=== PATIENT | female | born 1935 | race Caucasian/White ===

== ENCOUNTER 2017-11-20 17:00 | Emergency (ER) | payer OTHER ==
[2017-11-20 17:53] LABS: Absolute Lymphocytes (CBC) 2.3 K/uL (0.7-4.9); Absolute Monocytes 0.4 K/uL (0.1-1.3); Absolute Neutrophil 3.8 K/uL (1.8-8.0); Eosinophils % 2.6 % (0-4.4); Hematocrit 32.7 % (36.0-45.0); Lymphocytes % 34.1 % (15.3-44.8); MCH 35.8 pg (27.0-35.0); MCV 102.9 fL (80-100); RBC Red Blood Cell Count 3.17 M/uL (3.86-4.86)
[2017-11-20 17:58] LABS: Potassium 3.4 mEq/L (3.6-5.0)
--- NOTE | 2017-11-20 18:08 | RAD REPORT ---
EXAM DESCRIPTION: CT - Head C Spine Joe Crowley - 11/20/2017 5:44 pm CLINICAL HISTORY: Head and neck injury with chest and abdominal pain status post fall.. Head and nec k pain . TECHNIQUE: Computed axial tomography of the head and cervical spine was obtained Computed axial tomography of the chest, abdomen and pelvis was obtained. 100 cc Isovue-300 was given intravenously coronal and sagittal reconstruction was performed. All CT scans are performed using dose optimization technique as appropriate and may include automated exposure control or mA/KV adjustment according to patient size. COMPARISON: CT abdomen 2012 FINDINGS: An intracranial bleed is not seen. The ventricles are normal in caliber. An extra-axial fl uid collection is not noted. Moderate low-density areas are present in periventricular, deep and subc ortical white matter bilaterally probably secondary to ischemic changes secondary to small vessel dis ease A cervical fracture is not seen. No dislocation is seen. A mediastinal hematoma is not noted. A pleural effusion is not present. A lung contusion is not seen. The liver, spleen, pancreas, adrenals, kidneys and bladder demonstrate no significant abnormality. A left renal cyst is seen. A small hiatal hernia is present IMPRESSION: 1. No acute intracranial abnormality is seen 2. A cervical fracture is not visualized. If the patient continues have symptoms to suggest intracran ial/spinal cord pathology then MRI would be recommended. 3. No traumatic injury involving the chest, abdomen or pelvis is seen.
--- NOTE | 2017-11-20 18:14 | RAD REPORT ---
EXAM DESCRIPTION: CT - Facial Bones W/ Mpr - 11/20/2017 5:44 pm CLINICAL HISTORY: Facial injury status post fall. Facial pain COMPARISON: none TECHNIQUE: Computed axial tomography of the face was obtained. Coronal and sagittal reconstruction w as performed. All CT scans are performed using dose optimization technique as appropriate and may include automated exposure control or mA/KV adjustment according to patient size. FINDINGS: A fracture is not seen. The nasal septum is deviated. A TMJ dislocation is not noted. The globes are intact. Fluid within the sinuses is not seen. IMPRESSION: Negative for a facial fracture.
--- NOTE | 2017-11-20 18:44 | RAD REPORT ---
EXAM DESCRIPTION: RAD - Hand Right 3 View - 11/20/2017 6:27 pm CLINICAL HISTORY: Right hand pain status post injury FINDINGS: No fracture or dislocation is seen. The bones are osteoporotic
--- NOTE | 2017-11-20 18:46 | RAD REPORT ---
EXAM DESCRIPTION: RAD -Hand Left 3 View - 11/20/2017 6:29 pm CLINICAL HISTORY: Left hand pain status post injury FINDINGS: No fracture or dislocation is seen. The bones are osteoporotic. Narrowing involves the second DIP joint with osteophytes at erosions.
[2017-11-20] MEDS ORDERED: ONDANSETRON 4 MG/2 ML VIAL ONE (18:49)
[2017-11-20] MEDS ORDERED: MORPHINE 4 MG/ML SYR ONE (18:49)
--- NOTE | 2017-11-20 19:07 | ER ---
Nurse's Notes [facility] Name: Nanette Quiros Age: 82 yrs Sex: Female : 1935 Arrival Date: 11/20/2017 Time: 17:02 Bed 2 Private MD: Loree Gale Diagnosis: Other slipping, tripping and stumbling and falls;Facial contusion, bilateral shoulder contusions/sprains, bilateral hand contusions, multiple skin tears Presentation: 11/20 17:05 Presenting complaint: EMS states: pt was in back yard tripped and fell on a large 2 flower pot, fell face first, c/o right jaw pain, nose pain, Right shoulder pain with possible location, and left heel, left elbow pain, she says she really just hurts all over, possible chipped tooth, unsure what med she takes but plavix is in her med box. Transition of care: patient was not received from another setting of care. Onset of symptoms was November 20, 2017. Risk Assessment: Do you want to hurt yourself or someone else? Patient reports no desire to harm self or others. Initial Sepsis Screen: Does the patient meet any 2 criteria? No. Patient's initial sepsis screen is negative. Does the patient have a suspected source of infection? No. Patient's initial sepsis screen is negative. Care prior to arrival: sling applied to Right arm. 17:05 Method Of Arrival: EMS: [facility] tw2 17:05 Acuity: BAO 2 tw2 17:09 Mechanism of Injury: Fall from standing position. Trauma event details: Injury occurred tw2 in the [facility]. Trauma Activation: Alert Physician: ED Physician; Name: ; Notified At: ; Arrived At: Physician: General Surgeon; Name: ; Notified At: ; Arrived At: Physician: Radiology; Name: ; Notified At: ; Arrived At: Physician: Respiratory; Name: ; Notified At: ; Arrived At: Physician: Lab; Name: ; Notified At: ; Arrived At: Historical: - Allergies: 17:03 Codeine; tw2 17:03 PENICILLINS; tw2 - PMHx: 17:03 Asthma; COPD; Hyperlipidemia; Hypertension; Myocardial infarction; tw2 - PSHx: 17:03 CABG; tw2 - Immunization history:: Adult Immunizations. - Social history:: Smoking status: Patient/guardian denies using tobacco. - Immunization history: Last tetanus immunization: unknown. - Ebola Screening: : Patient denies travel to an Ebola-affected area in the 21 days before illness onset. Screenin:08 Abuse screen: Denies threats or abuse. Nutritional screening: No deficits noted. tw2 Tuberculosis screening: No symptoms or risk factors identified. Fall Risk None identified. Primary Survey: 17:08 A: Airway: patent, room air. Breathing/Chest: Respiratory pattern: regular, Respiratory tw2 effort: spontaneous, unlabored, Breath sounds: clear, bilaterally. Chest inspection: symmetrical rise and fall of the chest. Circulation: Heart tones present. Skin temperature: warm. Disability Alert. 18:00 Reassessment Airway Airway Patent Breathing/Chest Respiratory pattern Regular tw2 Respiratory effort Spontaneous Unlabored Breath sounds Clear Chest inspection Symmetrical Circulation Heart rhythm Heart tones Present Disability Alert. Secondary Survey: 17:08 HEENT: Head Other swelling and bruising noted to nose, lips, and mouth area Nose: tw2 bleeding noted to bilateral nares. Gastrointestinal: No deficits noted. Abdomen is soft, Bowel sounds present in all quadrants. : No signs and/or symptoms were reported regarding the genitourinary system. Musculoskeletal: Circulation, motion, and sensation intact. Reports pain in right shoulder. Assessment: 17:05 General: Appears in no apparent distress. uncomfortable, Behavior is calm, cooperative, tw2 appropriate for age. Pain: Complains of pain in face and left shoulder. Neuro: Level of Consciousness is awake, alert, obeys commands, Oriented to person, place, situation. Cardiovascular: Denies chest pain, shortness of breath, Heart tones S1 S2 Capillary refill < 3 seconds. Respiratory: Airway is patent Respiratory effort is even, unlabored, Respiratory pattern is regular, symmetrical, Breath sounds are clear bilaterally. GI: No signs and/or symptoms were reported involving the gastrointestinal system. Abdomen is flat, Bowel sounds present X 4 quads. : No signs and/or symptoms were reported regarding the genitourinary system. EENT: swelling noted to nose, and mouth, bruising noted to lips, dried blood in nares, skin tears on bridge of nose and near right nostril. Derm: Skin is intact, is healthy with good turgor, Skin temperature is warm. 17:39 Reassessment: pts sister at bedside states she has "beginning states of alzheimers and tw2 has been being very suspicious lately and stopped taking all her meds last week, her daughter is disable and left her home alone today while i was getting my hair done, her daughter said she just got mad for no reason was yelling at her daughter". 18:37 Reassessment: Patient and/or family updated on plan of care and expected duration. Pain tw2 level reassessed. Patient is alert, oriented x 3, equal unlabored respirations, skin warm/dry/pink. pt c/o pain would like pain medicine, provider notified. 19:19 Reassessment: Patient and/or family updated on plan of care and expected duration. Pain tw2 level reassessed. Patient is alert, oriented x 3, equal unlabored respirations, skin warm/dry/pink. pt refused to ambulate at this times states "i am too woozy from that pain medicine", provider notified. 20:15 Reassessment: Attempted to ambulate patient, "States I often feel dizzy when I walk"; lp1 Patient slow to ambulate, shuffling gait. 21:00 Reassessment: Patient states pain to right forearm, states "it feels like it's burning".lp1 22:15 Reassessment: Dr. Dodge at bedside to re-evaluate patient. lp1 23:00 Reassessment: Patient complaint of pain to right forearm and right shoulder. Pain: Pain lp1 currently is 8 out of 10 on a pain scale. Respiratory: Respiratory effort is even, unlabored. Derm: Skin is pink, warm \\T\\ dry. Bruising that is dark purple, on face. Musculoskeletal: Circulation, motion, and sensation intact. Range of motion: limited in right shoulder. 11/21 00:00 Reassessment: Patient is alert, oriented x 3, equal unlabored respirations, skin lp1 warm/dry/pink. Awaiting results of x-rays. 01:00 Reassessment: Patient appears in no apparent distress at this time. Patient is alert, lp1 oriented x 3, equal unlabored respirations, skin warm/dry/pink. Patient states feeling better. Vital Signs: 11/20 17:03 BP 170 / 71; Pulse 99; Resp 19; Temp 98.8(TE); Pulse Ox 97% on NC; Weight 68.04 kg (R); tw2 Height 5 ft. 5 in. (165.10 cm); Pain 10/10; 18:36 BP 173 / 84; Pulse 89; Resp 17; Pulse Ox 95% on R/A; tw2 19:30 BP 148 / 60; Pulse 87; Resp 18; Pulse Ox 94% on R/A; lp1 20:30 BP 141 / 60; Pulse 86; Resp 18; Pulse Ox 93% on R/A; lp1 21:30 BP 128 / 64; Pulse 89; Resp 18; Pulse Ox 92% on R/A; lp1 22:30 BP 128 / 61; Pulse 89; Resp 18; Pulse Ox 93% on R/A; lp1 23:30 BP 140 / 64; Pulse 91; Resp 18; Pulse Ox 94% on R/A; lp1 11/21 00:30 BP 128 / 54; Pulse 90; Resp 18; Pulse Ox 94% on R/A; lp1 11/20 17:03 Body Mass Index 24.96 (68.04 kg, 165.10 cm) tw2 Gayle Coma Score: 11/20 17:07 Eye Response: spontaneous(4). Verbal Response: oriented(5). Motor Response: obeys tw2 commands(6). Total: 15. Trauma Score (Adult): 17:07 Eye Response: spontaneous(1); Verbal Response: oriented(1); Motor Response: obeys tw2 commands(2); Systolic BP: > 89 mm Hg(4); Respiratory Rate: 10 to 29 per min(4); Gayle Score: 15; Trauma Score: 12 ED Course: 17:02 Patient arrived in ED. tw2 17:05 Bed in low position. Side rails up X2. valve and regulator repairer on. Pulse ox on. NIBP on. Warm tw2 blanket given. 17:07 Charanjit Pillai MD is Attending Physician. kdr 17:07 Triage completed. tw2 17:07 Arm band placed on. tw2 17:21 Inserted saline lock: 20 gauge in left Blood collected. ag 17:22 Aria Ibanez, ADAN is Primary Nurse. tw2 17:40 Patient maintains SpO2 saturation greater than 95% on room air. Thermoregulation: warm tw2 blanket given to patient. 17:44 CT Traumagram (Head C Spine CAP W Con) In Process Unspecified. EDMS 17:44 Facial Bones W/ Mpr In Process Unspecified. EDMS 17:48 Loree Gale MD is Private Physician. sb2 18:23 X-ray completed. Portable x-ray completed in exam room. Patient tolerated procedure ml well. 18:25 Hand Right 3 View XRAY In Process Unspecified. EDMS 18:25 Hand Left 3 View XRAY In Process Unspecified. EDMS 19:03 Loree Gale MD is Referral Physician. kdr 19:10 Report given to ADAN Anguiano. tw2 19:20 No provider procedures requiring assistance completed. tw2 19:36 Primary Nurse role handed off by Aria Ibanez RN tw2 21:48 Annmarie Tyler RN is Primary Nurse. lp1 23:41 X-ray completed. Portable x-ray completed in exam room. Patient tolerated procedure kw well. 23:41 Shoulder Right (2 View) XRAY In Process Unspecified. EDMS 23:41 Forearm Right XRAY In Process Unspecified. EDMS 11/21 01:36 IV discontinued, No redness/swelling at site. Pressure dressing applied. lp1 Administered Medications: 11/20 18:50 Drug: Zofran 4 mg Route: IVP; Site: left antecubital; tw2 19:30 Follow up: Response: No adverse reaction lp1 18:52 Drug: morphine 2 mg Route: IVP; Site: left antecubital; tw2 19:30 Follow up: Response: No adverse reaction; Pain is decreased lp1 23:22 Drug: [place] 5 mg-325 mg 1 tabs Route: PO; lp1 11/21 01:40 Follow up: Response: Pain is decreased lp1 Intake: 11/20 17:07 PO: 0ml; Total: 0ml. tw2 Output: 16:10 Urine: 300ml (Voided); Total: 300ml. tw2 Outcome: 19:06 Discharge ordered by . kdr 19:20 Patient's length of stay in the Emergency Department was greater than 2 hours. pt tw2 population in ERPatient's length of stay extended due to 11/21 01:37 Discharged to home via wheelchair, with family. lp1 Condition: good Discharge instructions given to patient, family, Instructed on discharge instructions, follow up and referral plans. medication usage, Demonstrated understanding of instructions, follow-up care, medications, Prescriptions given X 1. 01:40 Patient left the ED. lp1 Signatures: Dispatcher [employer] EDMS Charanjit Pillai MD MD kdr Lopez, Melissa ml Whitley, Kimberlee kw Pena, Laura, RN RN lp1 Shirin Chauhan Tara, RN RN tw2 Rosemary Solo sb2 Corrections: (The following items were deleted from the chart) 11/20 18:55 18:36 Pulse 89bpm; Resp 17bpm; Pulse Ox 95% RA; tw2 tw2
--- NOTE | 2017-11-20 19:07 | EDPHYS ---
Physician Documentation [facility] Name: Nanette Quiros Age: 82 yrs Sex: Female : 1935 Arrival Date: 11/20/2017 Time: 17:02 Bed 2 Private MD: Loree Gale ED Physician Charanjit Pillai HPI: 11/20 18:04 This 82 yrs old Female presents to ER via EMS with complaints of Fall Injury. kdr 18:04 Onset: The symptoms/episode began/occurred suddenly, just prior to arrival. Associated kdr injuries: The patient sustained injury to the head, contusion, pain. Severity of symptoms: At their worst the symptoms were mild, moderate, in the emergency department the symptoms are unchanged. It is unknown whether or not the patient has had similar symptoms in the past. It is unknown whether or not the patient has recently seen a physician. The patient reportedly tripped falling face forward hitting her face. She now c/o pain to her face, shoulders and hands. She has blood on her face with no obvious source on first exam. Historical: - Allergies: 17:03 Codeine; tw2 17:03 PENICILLINS; tw2 - PMHx: 17:03 Asthma; COPD; Hyperlipidemia; Hypertension; Myocardial infarction; tw2 - PSHx: 17:03 CABG; tw2 - Immunization history:: Adult Immunizations. - Social history:: Smoking status: Patient/guardian denies using tobacco. - Immunization history: Last tetanus immunization: unknown. - Ebola Screening: : Patient denies travel to an Ebola-affected area in the 21 days before illness onset. ROS: 18:04 Constitutional: Negative for fever, chills, and weight loss, Eyes: Negative for injury, kdr pain, redness, and discharge, Neck: Negative for injury, pain, and swelling, Cardiovascular: Negative for chest pain, palpitations, and edema, Respiratory: Negative for shortness of breath, cough, wheezing, and pleuritic chest pain, Abdomen/GI: Negative for abdominal pain, nausea, vomiting, diarrhea, and constipation, Back: Negative for injury and pain, : Negative for injury, bleeding, discharge, and swelling, MS/Extremity: Negative for injury and deformity, Skin: Negative for injury, rash, and discoloration, Psych: Negative for depression, anxiety, suicide ideation, homicidal ideation, and hallucinations, Allergy/Immunology: Negative for hives, rash, and allergies, Endocrine: Negative for neck swelling, polydipsia, polyuria, polyphagia, and marked weight changes, Hematologic/Lymphatic: Negative for swollen nodes, abnormal bleeding, and unusual bruising. 18:04 ENT: Positive for Multiple apparent abrasions to her face. Exam: 18:04 Constitutional: This is a well developed, well nourished patient who is awake, kdr semi-alert, and in mild distress. Head/Face: Normocephalic, atraumatic. Eyes: Pupils equal round and reactive to light, extra-ocular motions intact. Lids and lashes normal. Conjunctiva and sclera are non-icteric and not injected. Cornea within normal limits. Periorbital areas with no swelling, redness, or edema. Neck: Trachea midline, no thyromegaly or masses palpated, and no cervical lymphadenopathy. Supple, full range of motion without nuchal rigidity, or vertebral point tenderness. No Meningismus. Chest/axilla: Normal chest wall appearance and motion. Nontender with no deformity. No lesions are appreciated. Cardiovascular: Regular rate and rhythm with a normal S1 and S2. No gallops, murmurs, or rubs. Normal PMI, no JVD. No pulse deficits. Respiratory: Lungs have equal breath sounds bilaterally, clear to auscultation and percussion. No rales, rhonchi or wheezes noted. No increased work of breathing, no retractions or nasal flaring. Abdomen/GI: Soft, non-tender, with normal bowel sounds. No distension or tympany. No guarding or rebound. No evidence of tenderness throughout. Back: No spinal tenderness. No costovertebral tenderness. Full range of motion. Neuro: Awake and alert, GCS 15, oriented to person, place, time, and situation. Cranial nerves II-XII grossly intact. Motor strength 5/5 in all extremities. Sensory grossly intact. Cerebellar exam normal. Normal gait. Psych: Awake, alert, with orientation to person, place and time. Behavior, mood, and affect are within normal limits. 18:04 Musculoskeletal/extremity: The patient c/o pain in both shoulders and her hands. Vital Signs: 17:03 BP 170 / 71; Pulse 99; Resp 19; Temp 98.8(TE); Pulse Ox 97% on NC; Weight 68.04 kg (R); tw2 Height 5 ft. 5 in. (165.10 cm); Pain 10/10; 18:36 BP 173 / 84; Pulse 89; Resp 17; Pulse Ox 95% on R/A; tw2 19:30 BP 148 / 60; Pulse 87; Resp 18; Pulse Ox 94% on R/A; lp1 20:30 BP 141 / 60; Pulse 86; Resp 18; Pulse Ox 93% on R/A; lp1 21:30 BP 128 / 64; Pulse 89; Resp 18; Pulse Ox 92% on R/A; lp1 22:30 BP 128 / 61; Pulse 89; Resp 18; Pulse Ox 93% on R/A; lp1 23:30 BP 140 / 64; Pulse 91; Resp 18; Pulse Ox 94% on R/A; lp1 11/21 00:30 BP 128 / 54; Pulse 90; Resp 18; Pulse Ox 94% on R/A; lp1 11/20 17:03 Body Mass Index 24.96 (68.04 kg, 165.10 cm) tw2 Gayle Coma Score: 11/20 17:07 Eye Response: spontaneous(4). Verbal Response: oriented(5). Motor Response: obeys tw2 commands(6). Total: 15. Trauma Score (Adult): 17:07 Eye Response: spontaneous(1); Verbal Response: oriented(1); Motor Response: obeys tw2 commands(2); Systolic BP: > 89 mm Hg(4); Respiratory Rate: 10 to 29 per min(4); [place] Score: 15; Trauma Score: 12 MDM: 18:04 Data reviewed: vital signs, nurses notes, lab test result(s), radiologic studies. kdr Counseling: I had a detailed discussion with the patient and/or guardian regarding: the historical points, exam findings, and any diagnostic results supporting the discharge/admit diagnosis, lab results, radiology results. 19:06 Patient medically screened. kdr 11/21 01:00 ED course: pt able to ambulate with asst and has walker and wc at home, additional gs complaints of R forearm and shoulder xrayed and no fracture. pt want to go home. 11/20 17:11 Order name: Basic Metabolic Panel; Complete Time: 18:04 ag 11/20 17:11 Order name: CBC with Diff; Complete Time: 18:45 ag 11/20 17:11 Order name: Type And Screen ag 11/20 18:44 Order name: Antibody Identification EDAL 11/20 19:36 Order name: Antigen type [facility] 11/20 17:29 Order name: CT Traumagram (Head C Spine CAP W Con); Complete Time: 18:45 kdr 11/20 17:33 Order name: Facial Bones W/ Mpr; Complete Time: 18:45 EDMS 11/20 18:08 Order name: Hand Right 3 View XRAY; Complete Time: 18:45 aa5 11/20 18:08 Order name: Hand Left 3 View XRAY aa5 11/20 23:17 Order name: Shoulder Right (2 View) XRAY gs 11/20 23:17 Order name: Forearm Right XRAY 11/20 17:11 Order name: Labs collected and sent; Complete Time: 17:39 ag Administered Medications: 11/20 18:50 Drug: Zofran 4 mg Route: IVP; Site: left antecubital; tw2 19:30 Follow up: Response: No adverse reaction lp1 18:52 Drug: morphine 2 mg Route: IVP; Site: left antecubital; tw2 19:30 Follow up: Response: No adverse reaction; Pain is decreased lp1 23:22 Drug: [place] 5 mg-325 mg 1 tabs Route: PO; lp1 11/21 01:40 Follow up: Response: Pain is decreased lp1 Disposition: 11/20/17 19:06 Discharged to Home. Impression: Other slipping, tripping and stumbling and falls, Facial contusion, bilateral shoulder contusions/sprains, bilateral hand contusions, multiple skin tears. - Condition is Stable. - Discharge Instructions: Hand Contusion, [id number], Chest Wall Pain, Aysy-[id number], Contusion, Cymi-to-Kdhh, Fall Prevention and Home Safety, Sziq-[id number], Facial or Scalp Contusion, Ycsv-xa-[id number]. - Prescriptions for Ibuprofen 600 mg Oral Tablet - take 1 tablet by ORAL route every 6 hours As needed take with food; 15 tablet. - Medication Reconciliation Form, Thank You Letter, Antibiotic Education, Prescription Opioid Use form. - Follow up: Loree Gale MD; When: 1 - 2 days; Reason: If symptoms return, Further diagnostic work-up, Recheck today's complaints, Continuance of care, Re-evaluation by your physician. - Problem is new. - Symptoms have improved. Signatures: Dispatcher [employer] [facility] Charanjit Pillai MD MD kdr Annmarie Tyler RN RN lp1 Chauhan Shirin Aria Mar RN RN tw2 Fahad Dodge MD MD gs Corrections: (The following items were deleted from the chart) 11/20 17:33 17:29 Facial Bones W/ Con \T\ MPR+CT.RAD.BRZ ordered. EDAL EDAL 17:52 17:12 Creatinine for Radiology+C.LAB.BRZ ordered. [facility] EDAL 19:39 17:11 Urine Dipstick-Ancillary ordered. ag lp1 11/21 01:40 11/20 19:06 11/20/2017 19:06 Discharged to Home. Impression: Other slipping, tripping lp1 and stumbling and falls; Facial contusion, bilateral shoulder contusions/sprains, bilateral hand contusions, multiple skin tears. Condition is Stable. Forms are Medication Reconciliation Form, Thank You Letter, Antibiotic Education, Prescription Opioid Use. Follow up: Loree Gale; When: 1 - 2 days; Reason: If symptoms return, Further diagnostic work-up, Recheck today's complaints, Continuance of care, Re-evaluation by your physician. Problem is new. Symptoms have improved. kdr
[2017-11-20] MEDS ORDERED: HYDROCODONE/APAP 5/325 MG TAB ONE (23:20)
[2017-11-21 01:44] VITALS: TEMP 98.8
[2017-11-21 01:51] VITALS: O2SAT 94
[2017-11-21 01:52] VITALS: BP 128/54
--- NOTE | 2017-11-21 08:10 | RAD REPORT ---
EXAM DESCRIPTION: Shoulder Right 2 View - 11/20/2017 11:45 pm CLINICAL HISTORY: Fall, shoulder pain COMPARISON: June 2014 TECHNIQUE: Internal and external rotation views of the right shoulder were obtained. FINDINGS: No dislocation of the humeral head and no fracture confirmed. Spurring is seen along the i nferior margin of the AC joint and there are degenerative changes to the undersurface of the acromion . Small degenerative calcifications are seen along the superolateral humeral head. These are likely d egenerative tendon calcifications. No pathologic bone process. Ribs and lung parenchyma of the upper chest show no acute finding. IMPRESSION: No fracture or dislocation identifiable. 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
--- NOTE | 2017-11-21 08:52 | RAD REPORT ---
EXAM DESCRIPTION: RAD - Forearm Right - 11/20/2017 11:45 pm CLINICAL HISTORY: Arm pain following trauma COMPARISON: None. FINDINGS: No fracture is identified. There is no dislocation or periosteal reaction noted. Mild dege nerative changes involve the carpal bones with more moderate degenerative change involving the trapez ium first metacarpal articulation. Degenerative changes are present near the lateral epicondyles of t he humerus. No foreign body or other soft tissue abnormality. IMPRESSION: Elbow and wrist degenerative changes are present but no fracture or acute finding.
== END 2017-11-21 01:40 | disposition home or self-care (01) ==
LOC: ER 17:00
DX: S43.402A Unspecified sprain of left shoulder joint, initial encounter (principal); S43.401A Unspecified sprain of right shoulder joint, initial encounter; T14.8XXA Other injury of unspecified body region, initial encounter; S40.012A Contusion of left shoulder, initial encounter; S40.011A Contusion of right shoulder, initial encounter; S60.222A Contusion of left hand, initial encounter; S60.221A Contusion of right hand, initial encounter; W01.0XXA Fall on same level from slipping, tripping and stumbling without subsequent striking against object, initial encounter; Y93.01 Activity, walking, marching and hiking; Y92.9 Unspecified place or not applicable; Z88.0 Allergy status to penicillin; Z88.5 Allergy status to narcotic agent; Z95.1 Presence of aortocoronary bypass graft; I10 Essential (primary) hypertension
CPT/HCPCS: 70450; 70486; 71260; 72125; 73030; 73090; 73130 ×2; 74177; 76377; 80048; 85025; 86850; 86870; 86900; 86901; 86902; 96374; 96375; 99285; J2405; Q9967

== ENCOUNTER 2017-11-22 13:10 | Observation (INO) | payer OTHER ==
[2017-11-22] MEDS ORDERED: FENTANYL CITR 100 MCG/2 ML ONE (14:01)
[2017-11-22 14:09] LABS: Absolute Lymphocytes (CBC) 1.7 K/uL (0.7-4.9); Absolute Monocytes 0.4 K/uL (0.1-1.3); Absolute Neutrophil 5.8 K/uL (1.8-8.0); Basophils % 2.3 % (0-1.3); Eosinophils % 2.5 % (0-4.4); Hematocrit 30.9 % (36.0-45.0); Lymphocytes % 20.2 % (15.3-44.8); MCH 34.6 pg (27.0-35.0); MCV 103.4 fL (80-100); MPV 10.3 fL (7.6-11.3); Monocytes % 5.1 % (3.3-12.3); RBC Red Blood Cell Count 2.99 M/uL (3.86-4.86)
[2017-11-22 14:15] LABS: Protime INR 1.08
[2017-11-22 14:17] LABS: Potassium 3.8 mEq/L (3.6-5.0)
--- NOTE | 2017-11-22 14:44 | RAD REPORT ---
EXAM DESCRIPTION: CT - Head C Spine Cap Chance Crowley - 11/22/2017 2:31 pm CLINICAL HISTORY: Trauma, head and neck injury. Chest, abdomen and pelvis pain. COMPARISON: 11/20/2017 TECHNIQUE: CT head without contrast. CT cervical spine without contrast with coronal and sagittal reformatted images. CT chest, abdomen and pelvis with contrast with coronal and sagittal reformatted images of the spine. All CT scans are performed using dose optimization technique as appropriate and may include automated exposure control or mA/KV adjustment according to patient size. FINDINGS: CT HEAD WITHOUT CONTRAST: No intracranial hemorrhage, hydrocephalus or extra-axial fluid collection. Moderate generalized brain atrophy is present with moderate periventricular and deep white matter chronic microvascular ischemi c changes. No areas of brain edema or midline shift. The paranasal sinuses and mastoids are clear. The calvarium is intact. CT CERVICAL SPINE WITHOUT CONTRAST: No fracture or subluxation. Heavy carotid atherosclerosis. The prevertebral soft tissues are normal i n thickness. CT CHEST, ABDOMEN, PELVIS WITH CONTRAST: The lungs are clear.No pneumothorax or pericardial/pleural fluid. No evidence of intra-abdominal visceral injury, free fluid or free air. Gallbladder sludge. Prominent colonic diverticulosis. No concerning pelvic findings. No fractures. IMPRESSION: Negative for acute traumatic findings.
--- NOTE | 2017-11-22 15:02 | RAD REPORT ---
EXAM DESCRIPTION: RAD - Humerus Right - 11/22/2017 2:49 pm CLINICAL HISTORY: Fall, pain COMPARISON: None. FINDINGS: Mild degenerative changes are present involving the right shoulder. No acute fracture or s ubluxation.
--- NOTE | 2017-11-22 15:02 | RAD REPORT ---
EXAM DESCRIPTION: RAD - Forearm Right - 11/22/2017 2:49 pm CLINICAL HISTORY: Trauma, right forearm pain COMPARISON: None. FINDINGS: No acute fracture or subluxation is seen. Degenerative changes are present at the wrist.
[2017-11-22 16:53] LABS: Urine Blood 2+ (NEG); Urine Glucose NEGATIVE (NEG); Urine Protein 1+ (NEG); Urine Specific Gravity <1.005 (1.005-1.030); Urine pH 5.5 (5.0-7.0)
[2017-11-22] MEDS ORDERED: IPRATROPIUM BROM 0.5MG/2.5ML NEB PRN (17:07)
[2017-11-22] MEDS ORDERED: ALBUTEROL 2.5 MG/3 ML NEB SOL NEB PRN (17:07)
[2017-11-22] MEDS ORDERED: ONDANSETRON 4 MG/2 ML VIAL IV PRN (17:07)
--- NOTE | 2017-11-22 17:17 | P.HP ---
Certification for Inpatient Patient admitted to: Observation With expected LOS: <2 Midnights Patient will require the following post-hospital care: None Practitioner: I am a practitioner with admitting privileges, knowledge of patient current condition, hospital course, and medical plan of care. Services: Services provided to patient in accordance with Admission requirements found in Title 42 Section 412.3 of the Code of Federal Regulations Patient History Date of Service: 11/22/17 Primary Care Provider: Dr. Gale; Cardiology-Dr. Wilhelm Reason for admission: Syncope History of Present Illness: 82-year-old female presented emergency room after syncopal episode. Patient reports that she had been seen on 11/20/2017 in the ER for fall. She was worked up and sent home. Today she was sitting outside. She was in the process of going inside when she kailey from her chair she suddenly had a syncopal episode. She fell backwards. She was out for several seconds. She reported some dizziness. She denied any headaches, chest pain, shortness of breath. She did report some right shoulder pain. Patient with history of hypertension, CAD with previous CABG, COPD, GERD. In the ER she was evaluated. Blood pressure stable. On lab white count 8.3, hemoglobin 10.3. INR 1.08. Sodium 139, potassium 3.8, BUN of 13, creatinine 0.9, GFR 54. Glucose 132. Urinalysis indicated a UTI. CT of the head, neck, chest, abdomen showed no acute abnormality. Chronic Microvascular changes were noted on the CT of the head. A right forearm x-ray showed no fracture. Right humerus showed no fracture but mild degenerate changes were noted. Due to nature of her symptoms the patient was admitted for observation. When I saw the patient the ER, she did not appear in any distress. She had ecchymoses to her face. This was from her prior fall. Allergies codeine [Codeine] Allergy (Verified 02/27/14 22:10) Itching Penicillins Allergy (Verified 02/27/14 22:10) Hives Home medications list reviewed: Yes Home Medications: Aspirin Enteric Coated [ASPIRIN 81 MG EC*] 81 mg PO DAILY 11/05/12 Isosorbide [place] [Imdur*] 30 mg PO DAILY 11/05/12 Loratadine [Claritin*] 10 mg PO PRN PRN 05/09/13 Metoprolol Tartrate [Lopressor*] 25 mg PO BID 11/05/12 Omeprazole [Prilosec] 20 mg PO DAILY 11/05/12 Albuterol Sulfate [Proair Hfa] 2 inh IH TID 02/27/14 Niacin [Niacin ER] 500 mg PO DAILY 02/27/14 Welchol/ 3.75 gm PO BEDTIME 02/27/14 - Past Medical/Surgical History Diabetic: No -: COPD -: CAD, previous CABG -: Hypertension -: Cataracts -: Former tobacco use -: GERD -: Recent fall -: Appendectomy -: Bilateral Cataracts -: Tubal Ligation -: Triple Bypass -: Neuroma removed julisa feet -: Skin cancer removed from face -: Hysterectomy Psychosocial/ Personal History: Patient lives with her daughter. She has 6 children. - Family History Family History: Reviewed- Non-Contributory - Social History Smoking Status: Former smoker Alcohol use: No CD- Drugs: No Caffeine use: Yes Place of Residence: Home Review of Systems General: Weakness, As per HPI Eyes: Unremarkable ENT: Unremarkable Respiratory: As per HPI Cardiovascular: Light Headedness, As per HPI Gastrointestinal: Unremarkable Genitourinary: Unremarkable Musculoskeletal: Shoulder Pain, As per HPI Integumentary: Bruising, As per HPI Neurological: As per HPI Lymphatics: Unremarkable Physical Examination - Physical Exam General: Alert, In no apparent distress, Oriented x3, Cooperative HEENT: Normocephalic, PERRLA, Mucous membr. moist/pink, Other (Ecchymoses to her face in multiple areas) Neck: Supple, No Thyromegaly Respiratory: Clear to auscultation bilaterally, Normal air movement Cardiovascular: Normal pulses, Regular rate/rhythm Gastrointestinal: Normal bowel sounds, Soft and benign, Non-distended, No tenderness, No masses, No rebound, No guarding Musculoskeletal: No erythema, No tenderness, No warmth Integumentary: No erythema, No warmth, No cyanosis, Tenderness/swelling (Pain to the right shoulder noted with palpation. She had some range of motion issues especially with full extension), Other (Ecchymoses as stated above.) Neurological: Normal speech, Normal strength at 5/5 x4 extr, Normal tone, Normal affect - Studies Laboratory Data (last 24 hrs) 11/22/17 13:45: PT 12.7 H, INR 1.08 11/22/17 13:45: Creatinine 0.95 11/22/17 13:45: WBC 8.3 D, Hgb 10.3 L, Hct 30.9 L, Plt Count 174 11/22/17 13:45: Sodium 139, Potassium 3.8, BUN 13, Creatinine 0.99, Glucose 132 H Assessment and Plan - Problems (Diagnosis) (1) Syncope Current Visit: Yes Status: Acute Plan: Syncopal episode likely related to multifactorial issues including dehydration, UTI and possibly orthostatics changes. Will start IV hydration slowly. Will treat her UTI with Levaquin. Urine culture pending. Will monitor her blood pressures closely. Will check orthostatics in the morning. Will physical therapy assess ambulation tomorrow. Cardiology has been consulted await further recommendations. Anticipate possible discharge tomorrow if much improved. Patient may require home health and physical therapy at discharge. Qualifiers: Syncope type: unspecified Qualified Code(s): R55 - Syncope and collapse (2) UTI (urinary tract infection) Current Visit: Yes Status: Acute Plan: Will start Levaquin. Urine culture obtained. Qualifiers: Urinary tract infection type: site unspecified Hematuria presence: without hematuria Qualified Code(s): N39.0 - Urinary tract infection, site not specified (3) Dehydration Current Visit: Yes Status: Acute Plan: Will start IV fluids. Will monitor closely. (4) Right shoulder pain Current Visit: Yes Status: Acute Plan: Patient with right shoulder pain. No fracture noted. Degenerative changes noted. Will physical therapy assess further. Patient may need orthopedic consultation as an outpatient. Qualifiers: Chronicity: acute Qualified Code(s): M25.511 - Pain in right shoulder (5) CAD (coronary artery disease) Current Visit: Yes Status: Chronic Plan: Continue with her medications. Will monitor cardiac enzymes. Cardiology consulted. Qualifiers: Coronary Disease-Associated Artery/Lesion type: unspecified vessel or lesion type [place] vs. transplanted heart: unspecified whether [place] or transplanted heart Associated angina: angina presence unspecified Qualified Code(s): I25.10 - Atherosclerotic heart disease of [place] coronary artery without angina pectoris (6) HTN (hypertension) Current Visit: Yes Status: Chronic Plan: Will review and restart home medication. Will hold blood pressure medication if systolic less than 120. Qualifiers: Hypertension type: essential hypertension Qualified Code(s): I10 - Essential (primary) hypertension (7) Hyperlipidemia Current Visit: Yes Status: Chronic Plan: Will check fasting lipid panel. Will restart home medication once reviewed. Qualifiers: Hyperlipidemia type: unspecified Qualified Code(s): E78.5 - Hyperlipidemia , unspecified (8) COPD (chronic obstructive pulmonary disease) Current Visit: Yes Status: Chronic Plan: Provide medication. Qualifiers: COPD type: chronic bronchitis Chronic bronchitis type: unspecified Qualified Code(s): J42 - Unspecified chronic bronchitis (9) Anemia Current Visit: Yes Status: Chronic Plan: This is likely chronic. Will check iron and B12 studies Qualifiers: Anemia type: unspecified type Qualified Code(s): D64.9 - Anemia, unspecified Discharge Plan: Home Plan to discharge in: 24 Hours - Advance Directives Does patient have a Living Will: No Does patient have a Durable POA for Healthcare: No - Code Status/Comfort Care Code Status Assessed: No (This was not addressed.) Time Spent Managing Pts Care (In Minutes): 55
[2017-11-22] MEDS ORDERED: ENOXAPARIN 40 MG/0.4 ML SQ SCH (18:00)
[2017-11-22] MEDS ORDERED: Levofloxacin500mg IV 500 MG/100 ML BAG IV SCH (18:00)
--- NOTE | 2017-11-22 18:45 | ER ---
Nurse's Notes [facility] Name: Nanette Quiros Age: 82 yrs Sex: Female : 1935 Arrival Date: 11/22/2017 Time: 13:16 Bed 13 Private MD: Loree Gale Diagnosis: Syncope;Acute cystitis without hematuria Presentation: 11/22 13:31 Presenting complaint: Patient states: Fell backwards out of chair, EMS stated after mb3 talking with bystanders pt had syncopal episode and fell. LOC was aprox 1 min. Transition of care: patient was not received from another setting of care. Onset of symptoms was November 22, 2017 at 12:30. Risk Assessment: Do you want to hurt yourself or someone else? Patient reports no desire to harm self or others. Initial Sepsis Screen: Does the patient meet any 2 criteria? No. Patient's initial sepsis screen is negative. Does the patient have a suspected source of infection? No. Patient's initial sepsis screen is negative. Care prior to arrival: Cervical collar in place. Placed on backboard. Medication(s) given: zofran 4 mg, IV initiated. 20 GA, in the left antecubital area, Glucose check: 128. 13:31 Method Of Arrival: EMS: [facility] mb3 13:31 Acuity: BAO 3 mb3 Triage Assessment: 13:38 General: Appears uncomfortable, well groomed, Behavior is calm, cooperative, mb3 appropriate for age. Pain: Complains of pain in dorsal aspect of right forearm, left scapular area and right scapular area. EENT: No signs and/or symptoms were reported regarding the EENT system. 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 Cardiovascular: No deficits noted. Heart tones present Capillary refill < 3 seconds Patient's skin is warm and dry. Pulses are palpable in right radial artery, right dorsalis pedis artery, left radial artery and left dorsalis pedis artery. Respiratory: Airway is patent Respiratory effort is even, unlabored, Respiratory pattern is regular, symmetrical, Breath sounds are clear bilaterally. GI: No signs and/or symptoms were reported involving the gastrointestinal system. Abdomen is flat, Bowel sounds present X 4 quads. : No signs and/or symptoms were reported regarding the genitourinary system. Derm: Bruising that is dark purple, on chin, right jaw and left jaw. Historical: - Allergies: 13:34 Codeine; mb3 13:34 PENICILLINS; mb3 - PMHx: 13:34 Asthma; COPD; Hyperlipidemia; Hypertension; Myocardial infarction; mb3 - PSHx: 13:34 Heart stents; CABG; mb3 - Immunization history:: Adult Immunizations up to date. - Social history:: Smoking status: Patient/guardian denies using tobacco, but has a distant history of tobacco abuse. - Ebola Screening: : Patient denies travel to an Ebola-affected area in the 21 days before illness onset No symptoms or risks identified at this time. Screenin:41 Abuse screen: Denies threats or abuse. Nutritional screening: No deficits noted. mb3 Tuberculosis screening: No symptoms or risk factors identified. Fall Risk Fall in past 12 months (25 points). Secondary diagnosis (15 points) Alzheimer's, IV access (20 points). Ambulatory Aid- None/Bed Rest/Nurse Assist (0 pts). Gait- Normal/Bed Rest/Wheelchair (0 pts) Mental Status- Oriented to own ability (0 pts). Total [place]ado Fall Scale indicates High Risk Score (45 or more points). Fall prevention measures have been instituted. Side Rails Up X 2 Placed Close to Nursing Station 1:1 Attendant Assigned Family Present and informed to notify staff if the need to leave the bedside. Assessment: 13:20 Reassessment: see triage assessment. mb3 15:20 Reassessment: No changes from previously documented assessment. Patient and/or family mb3 updated on plan of care and expected duration. Pain level reassessed. Patient is alert, oriented x 3, equal unlabored respirations, skin warm/dry/pink. 18:38 Reassessment: No changes from previously documented assessment. Patient and/or family mb3 updated on plan of care and expected duration. Pain level reassessed. Patient is alert, oriented x 3, equal unlabored respirations, skin warm/dry/pink. Vital Signs: 13:34 BP 118 / 56; Pulse 89; Resp 17; Temp 97.7(O); Pulse Ox 91% on R/A; Weight 68.04 kg (R); mb3 Height 5 ft. 5 in. (165.10 cm); Pain 6/10; 14:45 BP 133 / 51; Pulse 86; Resp 18; Pulse Ox 93% on R/A; mb3 15:39 BP 150 / 90; Pulse 85; Resp 17; Pulse Ox 94% on R/A; mh5 16:22 BP 133 / 84; Pulse 103; Resp 18; Pulse Ox 96% on R/A; mh5 18:36 BP 132 / 53; Pulse 85; Resp 18; Pulse Ox 94% on R/A; mb3 20:06 BP 115 / 53; Pulse 81; Resp 18; Pulse Ox 97% on R/A; mb3 13:34 Body Mass Index 24.96 (68.04 kg, 165.10 cm) mb3 ED Course: 13:16 Patient arrived in ED. iw 13:16 Tin Goldstein MD is Attending Physician. ps1 13:31 Nnamdi Alanis, ADAN is Primary Nurse. mb3 13:33 Triage completed. mb3 13:42 Patient has correct armband on for positive identification. 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 Pulse mb3 ox on. NIBP on. Head of bed. Cleaned of incontinence. 14:22 Initial lab(s) drawn, by me, sent to lab. Maintain EMS IV. Dressing intact. mh5 14:31 CT Traumagram (Head C Spine CAP W Con) In Process Unspecified. EDMS 14:31 CT completed. Patient tolerated procedure well. Patient moved back from CT. Patient cw1 moved to radiology via stretcher. 14:48 X-ray completed. Portable x-ray completed in exam room. Patient tolerated procedure la2 well. 14:49 Humerus Right XRAY In Process Unspecified. EDMS 14:49 Forearm Right XRAY In Process Unspecified. EDMS 15:50 Urine collected: clean catch specimen, cloudy. mh5 17:24 Loree Gale MD is Private Physician. sb2 18:38 Head of bed elevated. Turned to left side. mb3 18:44 Bryan Junior DO is Hospitalizing Provider. ps1 20:07 Arm band placed on right wrist. mb3 20:08 No provider procedures requiring assistance completed. Patient admitted, IV remains in mb3 place. Administered Medications: 14:04 Drug: fentaNYL (PF) 50 mcg Route: IVP; Site: left antecubital; mb3 20:09 Follow up: Response: No adverse reaction mb3 Outcome: 18:44 Decision to Hospitalize by Provider. ps1 20:08 Admitted to Tele accompanied by tech, via stretcher, room 407, with chart, Report mb3 called to Malena ARELLANO 20:08 Condition: stable 20:08 Instructed on the need for admit. 20:11 Patient left the ED. mb3 Signatures: Dispatcher [employer] Hazel Hernandez RN RN iw Yolanda Navarro cw1 Janina Serra 5 Lenore Smith ky2 Tin Goldstein MD MD ps1 Rosemary Solo2 Nnamdi Alanis RN RN mb3 Corrections: (The following items were deleted from the chart) 15:20 15:19 Reassessment: see triage assessment mb3 mb3
--- NOTE | 2017-11-22 18:45 | EDPHYS ---
Physician Documentation [facility] Name: Nanette Quiros Age: 82 yrs Sex: Female : 1935 Arrival Date: 11/22/2017 Time: 13:16 Bed 13 Private MD: Loree Gale ED Physician Tin Goldstein HPI: 11/22 15:37 This 82 yrs old Female presents to ER via EMS with complaints of Fall Injury. ps1 15:37 patient was at pool and fell out of wheelchair and had syncopal event in which she is ps1 complaining of right arm pain. She had a recent fall a couple of days ago and was seen and evaluated for the same with CT imaging. She has a large contusion to the head and is reportedly on blood thinners, although she does not know which one. Pain rated as moderate. . Historical: - Allergies: 13:34 Codeine; mb3 13:34 PENICILLINS; mb3 - PMHx: 13:34 Asthma; COPD; Hyperlipidemia; Hypertension; Myocardial infarction; mb3 - PSHx: 13:34 Heart stents; CABG; mb3 - Immunization history:: Adult Immunizations up to date. - Social history:: Smoking status: Patient/guardian denies using tobacco, but has a distant history of tobacco abuse. - Ebola Screening: : Patient denies travel to an Ebola-affected area in the 21 days before illness onset No symptoms or risks identified at this time. ROS: 15:37 Constitutional: Negative for fever, chills, and weight loss, Eyes: Negative for injury, ps1 pain, redness, and discharge. 15:37 Cardiovascular: Negative for chest pain, palpitations, and edema, Respiratory: Negative for shortness of breath, cough, wheezing, and pleuritic chest pain, Abdomen/GI: Negative for abdominal pain, nausea, vomiting, diarrhea, and constipation. 15:37 Neuro: Negative for headache, weakness, numbness, tingling, and seizure. 15:37 ENT: Positive for injury or acute deformity. 15:37 MS/extremity: Positive for pain. Exam: 15:37 Constitutional: This is a well developed, well nourished patient who is awake, alert, ps1 and in no acute distress. 15:37 Eyes: Pupils equal round and reactive to light, extra-ocular motions intact. Lids and lashes normal. Conjunctiva and sclera are non-icteric and not injected. ENT: Nares patent. No nasal discharge, no septal abnormalities noted. Tympanic membranes are normal and external auditory canals are clear. Oropharynx with no redness, swelling, or masses, exudates, or evidence of obstruction, uvula midline. Mucous membranes moist. Neck: Trachea midline, no thyromegaly or masses palpated, and no cervical lymphadenopathy. Supple, full range of motion without nuchal rigidity, or vertebral point tenderness. No Meningismus. Chest/axilla: Normal chest wall appearance and motion. Nontender with no deformity. No lesions are appreciated. Cardiovascular: Regular rate and rhythm. No gallops, murmurs, or rubs. Normal PMI, no JVD. No pulse deficits. Respiratory: Lungs have equal breath sounds bilaterally, clear to auscultation and percussion. No rales, rhonchi or wheezes noted. No increased work of breathing, no retractions or nasal flaring. Abdomen/GI: Soft, non-tender, with normal bowel sounds. No distension or tympany. No guarding or rebound. No evidence of tenderness throughout. 15:37 Head/face: Noted is contusion, ecchymosis. 15:37 Musculoskeletal/extremity: Extremities: grossly normal except: noted in the right arm: pain, There is no evidence of numbness, tingling. NV intact. . Vital Signs: 13:34 BP 118 / 56; Pulse 89; Resp 17; Temp 97.7(O); Pulse Ox 91% on R/A; Weight 68.04 kg (R); mb3 Height 5 ft. 5 in. (165.10 cm); Pain 6/10; 14:45 BP 133 / 51; Pulse 86; Resp 18; Pulse Ox 93% on R/A; mb3 15:39 BP 150 / 90; Pulse 85; Resp 17; Pulse Ox 94% on R/A; mh5 16:22 BP 133 / 84; Pulse 103; Resp 18; Pulse Ox 96% on R/A; mh5 18:36 BP 132 / 53; Pulse 85; Resp 18; Pulse Ox 94% on R/A; mb3 20:06 BP 115 / 53; Pulse 81; Resp 18; Pulse Ox 97% on R/A; mb3 13:34 Body Mass Index 24.96 (68.04 kg, 165.10 cm) mb3 MDM: 13:33 Patient medically screened. ps1 11/22 13:47 Order name: Basic Metabolic Panel; Complete Time: 14:22 ps1 11/22 13:47 Order name: CBC with Diff; Complete Time: 14:22 ps1 11/22 13:47 Order name: Creatinine for Radiology; Complete Time: 14:22 ps1 11/22 13:47 Order name: Type And Screen ps1 11/22 13:47 Order name: PT-INR; Complete Time: 15:28 ps1 11/22 16:49 Order name: Urine Dipstick--Ancillary (enter results); Complete Time: 17:15 bd 11/22 17:15 Order name: Procalcitonin EDDE 11/22 17:15 Order name: Urinalysis [facility] 11/22 17:15 Order name: Basic Metabolic Panel [facility] 11/22 17:15 Order name: Basic Metabolic Panel [facility] 11/22 17:15 Order name: Basic Metabolic Panel [facility] 11/22 17:15 Order name: Basic Metabolic Panel [facility] 11/22 17:15 Order name: CBC with Automated Diff EDDE 11/22 17:15 Order name: CBC with Automated Diff EDDE 11/22 17:15 Order name: CBC with Automated Diff EDDE 11/22 17:15 Order name: CBC with Automated Diff EDDE 11/22 17:15 Order name: CKMB Creatine Kinase MB EDDE 11/22 17:15 Order name: CKMB Creatine Kinase MB EDDE 11/22 17:15 Order name: CKMB Creatine Kinase MB EDDE 11/22 17:15 Order name: Creatine Phosphokinase [facility] 11/22 17:15 Order name: Creatine Phosphokinase EDDE 11/22 17:15 Order name: Creatine Phosphokinase EDDE 11/22 17:15 Order name: Lipid Profile EDDE 11/22 17:15 Order name: Lipid Profile EDDE 11/22 17:15 Order name: Magnesium EDDE 11/22 17:15 Order name: Magnesium EDDE 11/22 17:15 Order name: Magnesium EDDE 11/22 17:15 Order name: Magnesium EDDE 11/22 17:16 Order name: T4 Free EDDE 11/22 17:16 Order name: T4 Free EDDE 11/22 13:47 Order name: CT Traumagram (Head C Spine CAP W Con); Complete Time: 15:28 ps1 11/22 13:47 Order name: Labs collected and sent; Complete Time: 14:05 [facility] 11/22 13:47 Order name: Urine Dipstick-Ancillary (obtain specimen) [facility] 11/22 13:47 Order name: Humerus Right XRAY; Complete Time: 15:28 [facility] 11/22 13:47 Order name: Forearm Right XRAY; Complete Time: 15:28 [facility] 11/22 14:08 Order name: Labs - recollect needed 11/22 17:15 Order name: CONS Physician Consult [facility] 11/22 17:15 Order name: Physical Therapy Consult [facility] 11/22 17:15 Order name: Respiratory Therapy Consult [facility] 11/22 17:15 Order name: Heart Healthy [facility] 11/22 17:16 Order name: Troponin I [facility] 11/22 17:16 Order name: Troponin I [facility] 11/22 17:16 Order name: Troponin I [facility] 11/22 17:16 Order name: Thyroid Stimulating Hormone [facility] 11/22 17:16 Order name: Thyroid Stimulating Hormone [facility] 11/22 17:16 Order name: Patient Safety Orders [facility] 11/22 17:18 Order name: Vitamin B12 Level [facility] 11/22 17:18 Order name: Ferritin [facility] 11/22 17:18 Order name: Iron,Serum [facility] 11/22 17:18 Order name: Transferrin Sat/Iron Binding [facility] 11/22 18:38 Order name: Diet Regular; Complete Time: 18:39 mh5 Administered Medications: 14:04 Drug: fentaNYL (PF) 50 mcg Route: IVP; Site: left antecubital; mb3 20:09 Follow up: Response: No adverse reaction mb3 Disposition: 11/22/17 18:44 Hospitalization ordered by Bryan Junior for Observation. Preliminary diagnosis are Syncope, Acute cystitis without hematuria. - Bed requested for Telemetry/MedSurg (observation). - Status is Observation. mb3 - Condition is Fair. - Problem is new. - Symptoms are unchanged. UTI on Admission? Yes Signatures: Dispatcher [employer] [facility] Valerie Savanna Tin Goldstein MD MD ps1 Nnamdi Alanis, RN RN mb3 Corrections: (The following items were deleted from the chart) 18:45 18:44 Hospitalization Ordered by Bryan Junior DO for Observation. Preliminary bd diagnosis is Syncope; Acute cystitis without hematuria. Bed requested for Telemetry/MedSurg (observation). Status is Observation. Condition is Fair. Problem is new. Symptoms are unchanged. UTI on Admission? Yes. ps1 20:11 18:45 11/22/2017 18:44 Hospitalization Ordered by Bryan Junior DO for Observation. mb3 Preliminary diagnosis is Syncope; Acute cystitis without hematuria. Bed requested for Telemetry/MedSurg (observation). Status is Observation. Condition is Fair. Problem is new. Symptoms are unchanged. UTI on Admission? Yes. bd
[2017-11-22] MEDS: NA CHLORIDE 0.9% 1,000 ML IV SCH (20:40)
[2017-11-22] MEDS: METOPROLOL TAR 25 MG TAB PO SCH (20:42)
[2017-11-22 21:03] VITALS: BMI 24.6
--- NOTE | 2017-11-22 23:09 | CON ---
Date of Consultation: 11/22/2017 The patient admitted on 11/22/2017, to Dr. Sandi coffey. I saw the patient on 11/22/2017. Reason For Consultation: Syncope. History Of Present Illness: Mrs. Quiros is an 82-year-old woman with history of asthma, dyslipidemia , mixed, CAD status post CABG, hypertension, gastroesophageal reflux disease. She came in with synco pal episode not proceeded with any chest pain, nausea, vomiting, or diaphoresis. She denied any PND, orthopnea, pedal edema, or palpitations. By the time I saw her, her workup was negative except for UTI. Her hemoglobin is 10.3. Her creatinine is 0.95. She had a history of CABG in 1982. A cathete rization in 2013, revealed a patent SVG to the RCA, which was only bypass. LAD and circumflex showed minimal coronary artery disease. No obvious stent at least at that point. Past Medical History: As stated above. Allergies: CODEINE AND PENICILLIN. Review of Systems: Negative. Social History: Negative. Family History: Negative. Medications: At home include Welchol, niacin, Prilosec, Lopressor, Imdur, albuterol, and aspirin. Physical Examination: Vital signs: Stable, afebrile sinus rhythm. HEENT: Negative. Neck: Supple. No bruit, JVD, or thyromegaly. Chest: Clear to auscultation and percussion. Cardiac Exam: Revealed a regular rhythm and rate with an S4, gallops, and an aortic sclerosis murmur . No rubs. Abdomen: Benign. Extremities: Revealed no clubbing, cyanosis, or edema. Diagnostic Data: As stated earlier. Impression And Plan: Syncope most likely secondary to orthostatic hypotension. The patient fell. N o evidence of fracture of fractures by x-ray at this point. I think we need to hydrate her. I do no t think she needs an extensive workup, but I would look at my office because I believe she is a patie nt of ours and see when the last time she had an echocardiogram or carotid Doppler or any cardiac wor kup, and I can make arrangements for that as an outpatient. Her other problems including chronic obs tructive pulmonary disease, dyslipidemia, coronary artery disease status post CABG, and gastroesophag eal reflux disease seem to be stable at this point. I will continue her present regimen. A 48-hour Holter may be reasonable to obtain as an outpatient as well. I will discuss the case further with Dr Peter Junior. The patient can go home whenever Dr. Junior is comfortable. GERMANIA/WAYNE Voice ID: [id number] Report ID: [id number]
[2017-11-22] MEDS: TRAMADOL HCL 50 MG TAB PO PRN (23:19)
[2017-11-22 23:39] LABS: CKMB Creatine Kinase MB 1.7 ng/ml (0.3-4.0)
[2017-11-23 00:07] LABS: Urine Appearance CLOUDY; Urine Bilirubin NEGATIVE (NEG); Urine Blood TRACE (NEG); Urine Color YELLOW; Urine Glucose NEGATIVE (NEG); Urine Protein TRACE (NEG); Urine Specific Gravity >=1.030 (1.005-1.030); Urine pH 5.5 (5.0-7.0)
[2017-11-23 00:27] LABS: Urine Microscopic Reflex ORDER UMIC
[2017-11-23 00:32] LABS: Urine Bacteria >50 /HPF (<20)
[2017-11-23 00:33] LABS: Urine Culture Reflex Order REFLEXED; Urine RBC <5 /HPF (NONE SEEN)
[2017-11-23] MEDS: ACETAMINOPHEN 500 MG TAB PO PRN ×2 (05:51→09:30)
[2017-11-23] MEDS: METOPROLOL TAR 25 MG TAB PO SCH (05:51)
[2017-11-23] MEDS ORDERED: PANTOPRAZOLE 40MG TABLET PO SCH (06:30)
[2017-11-23 06:34] LABS: Absolute Lymphocytes (CBC) 2.2 K/uL (0.7-4.9); Absolute Monocytes 0.5 K/uL (0.1-1.3); Absolute Neutrophil 3.1 K/uL (1.8-8.0); Basophils % 1.3 % (0-1.3); Eosinophils % 5.3 % (0-4.4); Hematocrit 26.4 % (36.0-45.0); Lymphocytes % 35.8 % (15.3-44.8); MCH 35.9 pg (27.0-35.0); MCV 103.2 fL (80-100); MPV 10.2 fL (7.6-11.3); RBC Red Blood Cell Count 2.56 M/uL (3.86-4.86)
[2017-11-23 07:46] LABS: CKMB Creatine Kinase MB 1.5 ng/ml (0.3-4.0)
[2017-11-23 08:47] VITALS: O2SAT 90
--- NOTE | 2017-11-23 08:51 | P.DS ---
Admission Date: 11/22/17 Discharge Date: 11/23/17 Primary Care Provider: Dr. Gale; Cardiology-Dr. Wilhelm Disposition: ROUTINE DISCHARGE Discharge Condition: GOOD Reason for Admission: Syncope Consultations: Cardiology-Dr. Degroot Procedures: Right forearm x-ray: No fracture noted Right humerus x-ray: No fracture or dislocation noted. Mild degenerative changes noted. CT scans: COMPARISON: 11/20/2017 TECHNIQUE: CT head without contrast. CT cervical spine without contrast with coronal and sagittal reformatted images. CT chest, abdomen and pelvis with contrast with coronal and sagittal reformatted images of the spine. All CT scans are performed using dose optimization technique as appropriate and may include automated exposure control or mA/KV adjustment according to patient size. FINDINGS: CT HEAD WITHOUT CONTRAST: No intracranial hemorrhage, hydrocephalus or extra-axial fluid collection. Moderate generalized brain atrophy is present with moderate periventricular and deep white matter chronic microvascular ischemic changes. No areas of brain edema or midline shift. The paranasal sinuses and mastoids are clear. The calvarium is intact. CT CERVICAL SPINE WITHOUT CONTRAST: No fracture or subluxation. Heavy carotid atherosclerosis. The prevertebral soft tissues are normal in thickness. CT CHEST, ABDOMEN, PELVIS WITH CONTRAST: The lungs are clear.No pneumothorax or pericardial/pleural fluid. No evidence of intra-abdominal visceral injury, free fluid or free air. Gallbladder sludge. Prominent colonic diverticulosis. No concerning pelvic findings.No fractures. IMPRESSION: Negative for acute traumatic findings. - Problems (1) Syncope Current Visit: Yes Status: Acute Qualifiers: Syncope type: unspecified Qualified Code(s): R55 - Syncope and collapse (2) UTI (urinary tract infection) Current Visit: Yes Status: Acute Qualifiers: Urinary tract infection type: site unspecified Hematuria presence: without hematuria Qualified Code(s): N39.0 - Urinary tract infection, site not specified (3) Dehydration Current Visit: Yes Status: Acute (4) Right shoulder pain Current Visit: Yes Status: Acute Qualifiers: Chronicity: acute Qualified Code(s): M25.511 - Pain in right shoulder (5) CAD (coronary artery disease) Current Visit: Yes Status: Chronic Qualifiers: Coronary Disease-Associated Artery/Lesion type: unspecified vessel or lesion type [place] vs. transplanted heart: unspecified whether [place] or transplanted heart Associated angina: angina presence unspecified Qualified Code(s): I25.10 - Atherosclerotic heart disease of [place] coronary artery without angina pectoris (6) HTN (hypertension) Current Visit: Yes Status: Chronic Qualifiers: Hypertension type: essential hypertension Qualified Code(s): I10 - Essential (primary) hypertension (7) Hyperlipidemia Current Visit: Yes Status: Chronic Qualifiers: Hyperlipidemia type: unspecified Qualified Code(s): E78.5 - Hyperlipidemia , unspecified (8) COPD (chronic obstructive pulmonary disease) Current Visit: Yes Status: Chronic Qualifiers: COPD type: chronic bronchitis Chronic bronchitis type: unspecified Qualified Code(s): J42 - Unspecified chronic bronchitis (9) Anemia Current Visit: Yes Status: Chronic Qualifiers: Anemia type: other cause Other causes of anemia: chronic disease, other Qualified Code(s): D63.8 - Anemia in other chronic diseases classified elsewhere (10) DJD of shoulder Current Visit: Yes Status: Chronic Qualifiers: Osteoarthritis type: unspecified Laterality: right Qualified Code(s): M19.011 - Primary osteoarthritis, right shoulder Brief History of Present Illness: 82-year-old female presented emergency room after syncopal episode. Patient reports that she had been seen on 11/20/2017 in the ER for fall. She was worked up and sent home. Today she was sitting outside. She was in the process of going inside when she kailey from her chair she suddenly had a syncopal episode. She fell backwards. She was out for several seconds. She reported some dizziness. She denied any headaches, chest pain, shortness of breath. She did report some right shoulder pain. Patient with history of hypertension, CAD with previous CABG, COPD, GERD. In the ER she was evaluated. Blood pressure stable. On lab white count 8.3, hemoglobin 10.3. INR 1.08. Sodium 139, potassium 3.8, BUN of 13, creatinine 0.9, GFR 54. Glucose 132. Urinalysis indicated a UTI. CT of the head, neck, chest, abdomen showed no acute abnormality. Chronic Microvascular changes were noted on the CT of the head. A right forearm x-ray showed no fracture. Right humerus showed no fracture but mild degenerate changes were noted. Due to nature of her symptoms the patient was admitted for observation. When I saw the patient the ER, she did not appear in any distress. She had ecchymoses to her face. This was from her prior fall. Hospital Course: Patient did well during the course of her stay. Patient reported no further syncopal episode. Syncope likely related to dehydration, orthostatic hypotension and UTI. Pro calcitonin unremarkable. White count unremarkable. Patient has done well with IV fluids and antibiotic therapy. At discharge she will continue with Levaquin 500 mg 1 pill daily for 5 days. UTI prevention educate will be provided. Recommendation is for the patient to follow up with her PCP in 1 week to follow up this hospitalization. Recommendation to recheck urine culture at that time to monitor resolution. PCP will need a follow up on urine culture results. Patient has anemia. Patient will be started on multi vitamin with iron. Recommendation is to recheck CBC in 1-2 weeks to monitor progress. Patient has hypertension. Because of dehydration and possible orthostatic hypotension, her medication of metoprolol has been decreased to 12.5 mg 1 pill twice daily. She is to monitor her blood pressures daily. If her blood pressure remains elevated her medication may need to be increased back to 25 mg 1 pill twice daily. Recommendation is to maintain blood pressures less 150/80. Further adjustment can be done by her PCP. Orthostatic hypotension education will be provided Patient has history of CAD. Cardiac enzymes unremarkable. Patient evaluated by Cardiology. No intervention needed at this time. Recommendations for the patient to follow up with cardiology as an outpatient to further monitor. Patient may require Holter monitor as an outpatient. This can be done by cardiology as an outpatient. Patient may continue with aspirin 81 mg daily and Imdur 30 mg daily. Patient with recent fall. Ecchymosis noted to the face. This appears healing. Fall precaution education will be provided. Patient may benefit with home health and physical therapy as an outpatient. This can be arranged by her PCP. Patient has right shoulder pain. No fracture noted. Mild degenerative changes noted. Patient may take Tylenol as needed for pain. Patient will be provided tramadol 50 mg 1 pill twice daily as needed for severe pain. Recommendations for the patient follow up with orthopedics as an outpatient to further monitor and address. Fall precaution education will be provided. Patient has COPD. She will continue with her medication-Pro air 2 puffs 3 times a day as needed for shortness of breath. Patient has hyperlipidemia. She will continue with her medication-niacin 500 mg daily and Welchol 1 pill daily. Vital Signs/Physical Exam: Temp Pulse Resp BP Pulse Ox 98.0 F 80 18 122/58 L 92 05/27/18 04:00 11/23/17 04:00 11/23/17 04:00 11/23/17 05:51 11/23/17 04:00 General: Alert, In no apparent distress, Oriented x3, Cooperative HEENT: Other (Healing areas of ecchymoses to the face noted.) Neck: Supple, No Thyromegaly Respiratory: Clear to auscultation bilaterally, Normal air movement Cardiovascular: Normal pulses, Regular rate/rhythm Gastrointestinal: Normal bowel sounds, Soft and benign, Non-distended, No tenderness, No masses, No rebound, No guarding Musculoskeletal: No erythema, No tenderness, No warmth, Other (Mild pain to the right shoulder.) Integumentary: No erythema, No warmth, No cyanosis Neurological: Normal speech, Normal strength at 5/5 x4 extr, Normal tone, Normal affect Lymphatics: No axilla or inguinal lymphadenopathy Laboratory Data at Discharge: WBC 6.2 K/uL (4.3-10.9) D 11/23/17 05:24 Hgb 9.2 g/dL (12.0-15.0) L 11/23/17 05:24 Hct 26.4 % (36.0-45.0) L 11/23/17 05:24 Plt Count 152 K/uL (152-406) 11/23/17 05:24 PT 12.7 SECONDS (9.5-12.5) H 11/22/17 13:45 INR 1.08 11/22/17 13:45 Sodium 139 mEq/L (135-145) 11/22/17 13:45 Potassium 3.8 mEq/L (3.6-5.0) 11/22/17 13:45 BUN 13 mg/dL (6-20) 11/22/17 13:45 Creatinine 0.99 mg/dL (0.44-1.00) 11/22/17 13:45 Glucose 132 mg/dL (65-120) H 11/22/17 13:45 Troponin I < 0.03 ng/mL (<0.03) 11/23/17 07:05 Home Medications: Aspirin Enteric Coated [ASPIRIN 81 MG EC*] 81 mg PO DAILY 11/05/12 Isosorbide Cochran [Imdur*] 30 mg PO DAILY 11/05/12 Loratadine [Claritin*] 10 mg PO PRN PRN 11/05/12 Omeprazole [Prilosec] 20 mg PO DAILY 11/05/12 Albuterol Sulfate [Proair Hfa] 2 inh IH TID 02/27/14 Niacin [Niacin ER] 500 mg PO DAILY 02/27/14 Welchol/ 3.75 gm PO BEDTIME 02/27/14 Levofloxacin [Levaquin] 500 mg PO DAILY #5 tab 11/23/17 Metoprolol Tartrate [Lopressor*] 12.5 mg PO BID #60 tab 11/23/17 Multivitamin with Iron [Daily Multivitamin with Iron] 1 each PO DAILY #90 tablet 11/23/17 Tramadol HCl [Ultram] 50 mg PO BID PRN #10 tablet 11/23/17 New Medications: Levofloxacin [Levaquin] 500 mg PO DAILY #5 tab Metoprolol Tartrate [Lopressor*] 12.5 mg PO BID #60 tab Multivitamin with Iron [Daily Multivitamin with Iron] 1 each PO DAILY #90 tablet Tramadol HCl [Ultram] 50 mg PO BID PRN #10 tablet PRN Reason: Pain Patient Discharge Instructions: 1. Patient will need a follow up with PCP in 1 week to follow up this hospitalization. 2. Patient presented with syncope likely related to dehydration and UTI. At discharge she will continue with Levaquin 500 mg 1 pill daily for 5 days. UTI prevention educate will be provided. Recommendation is for the patient to follow up with her PCP in 1 week to follow up this hospitalization. Recommendation to recheck urine culture at that time to monitor resolution. PCP will need a follow up on urine culture results. 3. Patient has anemia. Recommendation is to recheck CBC in 1 -2 weeks to monitor progress. 4. Patient has hypertension. Due to suspected orthostatic hypotension. I will decrease her metoprolol to 12.5 mg 1 pill twice daily. Recommendation is to maintain blood pressures less 150/80. If her blood pressures remain elevated she may need to have her medication increase to 25 mg 1 pill twice daily. Further adjustment can be done by her PCP. Education will be taught on orthostatic hypotension. 5. Patient has history of CAD. Cardiac enzymes unremarkable. Patient evaluated by Cardiology. No intervention needed at this time. Recommendations for the patient to follow up with cardiology as an outpatient to further monitor. Patient may require Holter monitor as an outpatient. Patient may continue with aspirin 81 mg daily and Imdur 30 mg daily. 6. Patient with recent fall. Ecchymosis noted to the face. This appears healing. Fall precaution education will be provided. Patient may benefit with home health and physical therapy as an outpatient. This can be arranged by her PCP. 7. Patient has right shoulder pain. No fracture noted. Mild degenerative changes noted. Patient may take Tylenol as needed for pain. Patient will be provided tramadol 50 mg 1 pill twice daily as needed for severe pain. Recommendations for the patient follow up with orthopedics as an outpatient to further monitor and address. Fall precaution education will be provided. 8. Patient has COPD. She will continue with her medication-Pro air 2 puffs 3 times a day as needed for shortness of breath. 9. Patient has hyperlipidemia. She will continue with her medication-niacin 500 mg daily and Welchol 1 pill daily. Diet: AHA Activity: Fall precautions Time spent managing pt's care (in minutes): 55
[2017-11-23 09:03] LABS: Potassium 4.1 mEq/L (3.6-5.0); Thyroid Stimulating Hormone 2.34 uIU/mL (0.34-5.60)
[2017-11-23] MEDS: NA CHLORIDE 0.9% 1,000 ML IV SCH (09:24)
[2017-11-23] MEDS: TRAMADOL HCL 50 MG TAB PO PRN (11:43)
[2017-11-23 13:11] VITALS: BP 119/47; TEMP 97.6
[2017-11-24 03:47] LABS: Ferritin 181.5 ng/ml (11.0-306.8)
== END 2017-11-23 14:13 | disposition home or self-care (01) ==
LOC: ER 13:10 → ERHOLD 17:07 → 4TH 19:09
PROVIDERS: ADMIT Family Medicine; ATTEND Family Medicine
DX: N39.0 Urinary tract infection, site not specified (principal); E86.0 Dehydration; D64.9 Anemia, unspecified; I25.10 Atherosclerotic heart disease of native coronary artery without angina pectoris; J44.9 Chronic obstructive pulmonary disease, unspecified; K21.9 Gastro-esophageal reflux disease without esophagitis; I10 Essential (primary) hypertension; E78.5 Hyperlipidemia, unspecified; M19.011 Primary osteoarthritis, right shoulder; Z95.1 Presence of aortocoronary bypass graft; Z88.0 Allergy status to penicillin
CPT/HCPCS: 36415; 70450; 71260; 72125; 73060; 73090; 74177; 80048 ×2; 80061; 82550 ×2; 82553 ×2; 82607; 82728; 83540; 83735; 84145; 84439; 84443; 84466; 84484 ×2; 85025 ×2; 85610; 86850; 86870; 86900; 86901; 87086; 87088; 96374; 97163; 99285; G0378 ×2; J1650; J3010; J7030 ×2; Q9967; 81003; 81015

== ENCOUNTER 2017-11-30 17:07 | Observation (INO) | payer OTHER ==
[2017-11-30] MEDS ORDERED: NA CHLORIDE 0.9% 250 ML ONE ×2 (17:50→19:35)
[2017-11-30] MEDS ORDERED: ONDANSETRON 4 MG/2 ML VIAL ONE (17:54)
[2017-11-30] MEDS ORDERED: NA CHLORIDE 0.9% 1,000 ML ONE (17:54)
--- NOTE | 2017-11-30 18:07 | RAD REPORT ---
EXAM DESCRIPTION: CT - Stone Protocol - 11/30/2017 5:52 pm CLINICAL HISTORY: Abdominal pain. COMPARISON: October 2017 TECHNIQUE: Computed axial tomography of the abdomen pelvis was obtained without oral or IV contrast. Lack of IV and oral contrast limits evaluation of solid organs, bowel, and vessels. Coronal reformat agusto images were obtained and reviewed. All CT scans are performed using dose optimization technique as appropriate and may include automated exposure control or mA/KV adjustment according to patient size. FINDINGS: A renal calculus is not seen. An ureteral calculus is not noted. A bladder calculus is not present. Left renal cyst is unchanged. The liver, spleen, pancreasand adrenals appear grossly normal The wall of descending and proximal sigmoid colon is markedly thickened with stranding within the adj acent fat. A small hiatal hernia is seen. Spondylosis involves lumbar spine resulting spinal stenosis IMPRESSION: Marked left colitis
[2017-11-30 18:30] LABS: Absolute Lymphocytes (CBC) 1.5 K/uL (0.7-4.9); Absolute Monocytes 0.9 K/uL (0.1-1.3); Absolute Neutrophil 14.7 K/uL (1.8-8.0); Basophils % 0.7 % (0-1.3); Eosinophils % 0.1 % (0-4.4); Hematocrit 34.3 % (36.0-45.0); MCH 34.4 pg (27.0-35.0); RBC Red Blood Cell Count 3.27 M/uL (3.86-4.86)
--- NOTE | 2017-11-30 18:31 | ER ---
Nurse's Notes [facility] Name: Nanette Quiros Age: 82 yrs Sex: Female : 1935 Arrival Date: 11/30/2017 Time: 17:16 Bed 18 Private MD: Diagnosis: Vomiting;Dehydration;Diverticulosis of large intestine without perforation or abscess without bleeding Presentation: 11/30 17:16 Presenting complaint: EMS states: Called out to patient's home for R shoulder, leg, and ss neck pain x unknown amount of days. Pt has fell recently on November 21 and and was seen in ER both times. Patient and family are reportedly poor historians by EMS. Patient reports she told her family to call 911 because she was having shoulder and R sided neck pain for unknown period of time and her family would not listen to her. Transition of care: patient was not received from another setting of care. Onset of symptoms is unknown. Risk Assessment: Do you want to hurt yourself or someone else? Patient reports no desire to harm self or others. Initial Sepsis Screen: Does the patient meet any 2 criteria? No. Patient's initial sepsis screen is negative. Does the patient have a suspected source of infection? No. Patient's initial sepsis screen is negative. Care prior to arrival: None. 17:16 Method Of Arrival: EMS: [facility] 17:16 Acuity: BAO 3 ss Historical: - Allergies: 17:20 Codeine; ss 17:20 PENICILLINS; ss - PMHx: 17:20 Asthma; COPD; Hyperlipidemia; Hypertension; Myocardial infarction; "memory problems"; ss - PSHx: 17:20 CABG; Heart stents; ss - Immunization history:: Adult Immunizations up to date. - Social history:: Smoking status: Patient/guardian denies using tobacco. - Ebola Screening: : Patient denies exposure to infectious person Patient denies travel to an Ebola-affected area in the 21 days before illness onset. Screenin:00 Abuse screen: Denies threats or abuse. Denies injuries from another. Nutritional bp screening: No deficits noted. Tuberculosis screening: No symptoms or risk factors identified. Fall Risk Fall in past 12 months (25 points). Secondary diagnosis (15 points) dementia, IV access (20 points). Ambulatory Aid- None/Bed Rest/Nurse Assist (0 pts). Gait- Normal/Bed Rest/Wheelchair (0 pts) Mental Status- Overestimates/Forgets Limitations (15 pts.). Total Hurtado Fall Scale indicates High Risk Score (45 or more points). Fall prevention measures have been instituted. Side Rails Up X 2 Placed Close to Nursing Station Frequent Obs/Assessments Occuring Family Present and informed to notify staff if the need to leave the bedside As available patient and family educated on Fall Prevention Program and Strategies. Assessment: 17:35 General: Appears in no apparent distress. uncomfortable, slender, Behavior is calm, em cooperative. Pain: Complains of pain in left lower quadrant and right lower quadrant and chin. Neuro: Level of Consciousness is awake, alert, obeys commands, Oriented to person, place. Cardiovascular: Capillary refill < 3 seconds Patient's skin is warm and dry. Respiratory: Airway is patent Respiratory effort is even, unlabored, Respiratory pattern is regular, symmetrical. GI: Abdomen is flat, Reports nausea, vomiting. : No signs and/or symptoms were reported regarding the genitourinary system. EENT: No signs and/or symptoms were reported regarding the EENT system. Derm: Bruising that is yellow, on chin. Musculoskeletal: Range of motion: limited in right shoulder. Injury Description: fell on November 21 and . 17:43 Reassessment: Point of Contact- Kelsi (daughter), . ss 18:34 Reassessment: Patient appears in no apparent distress at this time. Patient and/or em family updated on plan of care and expected duration. Pain level reassessed. Patient is alert, oriented x 3, equal unlabored respirations, skin warm/dry/pink. 19:00 Reassessment: RECD REPORT FROM SAMM ARELLANO. 82YO WF P/W GEN PAIN S/P FALL. ADMIT IN bp PROCESS FOR DIVERTICULITIS, ASSIGNMENT PENDING. 19:15 Reassessment: ADMIT MD AT B/S, ORDERS AND BED ASSIGNMENT PENDING. bp Vital Signs: 17:20 BP 133 / 60; Pulse 109; Resp 20; Pulse Ox 95% on R/A; Weight 65.32 kg; Pain 8/10; ss 17:28 Temp 99.2(O); ss 18:43 BP 149 / 56; Pulse 105; Resp 18; Pulse Ox 99% on R/A; em 19:57 BP 164 / 76; Pulse 101; Resp 18; Pulse Ox 96% on R/A; rv 20:30 BP 90 / 53; Pulse 87; Resp 16; Pulse Ox 100% ; bp ED Course: 17:16 Patient arrived in ED. ss 17:19 Triage completed. ss 17:20 Arm band placed on right wrist. ss 17:27 Fahad Dodge MD is Attending Physician. gs 17:36 Samm Small LVN is Primary Nurse. em 17:52 CT Stone Protocol In Process Unspecified. EDMS 17:52 CT completed. Patient moved back from CT. bq 18:00 Patient has correct armband on for positive identification. Bed in low position. Call em light in reach. Side rails up X2. 18:20 Initial lab(s) drawn, by me, sent to lab. Inserted saline lock: 20 gauge in left em antecubital area, using aseptic technique. Blood collected. 18:29 Lamont Hyman MD is Hospitalizing Provider. gs 18:43 No provider procedures requiring assistance completed. em 18:57 Primary Nurse role handed off by Samm Small LVN bp 18:57 Giancarlo Allen, ADAN is Primary Nurse. bp 19:12 Report given to ADAN Lezama. em 19:41 Blood Culture* Sent. bp 20:31 Patient admitted, IV remains in place. bp Administered Medications: 18:20 Drug: NS 0.9% 1000 ml Route: IV; Rate: 1 bolus; Site: left antecubital; ss 20:29 Follow up: IV Status: Completed infusion; IV Intake: 1000ml bp 18:25 Drug: Zofran 4 mg Route: IVP; Site: left antecubital; ss 18:47 Follow up: Response: No adverse reaction em 19:41 Drug: Rocephin - (cefTRIAXone) 1 grams Route: IVPB; Infused Over: 30 mins; Site: left bp antecubital; 19:56 Follow up: Response: No adverse reaction rv 20:29 Follow up: IV Status: Completed infusion bp 19:41 Drug: Flagyl 500 mg Volume: 100 ml; Route: IVPB; Rate: 200 ml/hr; Infused Over: 30 bp mins; Site: left antecubital; 19:56 Follow up: Response: No adverse reaction rv 20:30 Follow up: IV Status: Completed infusion bp Intake: 20:29 IV: 1000ml; Total: 1000ml. bp Outcome: 18:31 Decision to Hospitalize by Provider. 20:31 Condition: stable bp 20:31 Instructed on the need for admit. 20:46 Admitted to Tele accompanied by tech, via stretcher, room 420, with chart, Report bp called to ZAMZAM ARELLANO 20:47 Patient left the ED. bp Signatures: Dispatcher [employer] EDRadha Bradley Edgar, METAL MACHINE SETTER METAL MACHINE SETTER Leti Gray, RN RN ss Fahad Dodge MD MD gs Peltier, Brian, RN RN bp Sukhjinder Guillory, RN RN rv
--- NOTE | 2017-11-30 18:31 | EDPHYS ---
Physician Documentation [facility] Name: Nanette Quiros Age: 82 yrs Sex: Female : 1935 Arrival Date: 11/30/2017 Time: 17:16 Bed 18 Private MD: ED Physician Fahad Dodge HPI: 11/30 18:22 This 82 yrs old Female presents to ER via EMS with complaints of abdominal gs pain. 18:22 The patient presents with abdominal pain that is diffuse. Onset: The symptoms/episode gs began/occurred 2 day(s) ago. The symptoms do not radiate. Associated signs and symptoms: Pertinent positives: nausea and vomiting, vomiting. The symptoms are described as crampy. Modifying factors: The symptoms are alleviated by nothing, the symptoms are aggravated by nothing. Severity of pain: At its worst the pain was severe in the emergency department the pain is unchanged. The patient has experienced a previous episode. The patient has been recently been admitted at [facility], was discharged a couple of weeks ago. Historical: - Allergies: 17:20 Codeine; ss 17:20 PENICILLINS; ss - PMHx: 17:20 Asthma; COPD; Hyperlipidemia; Hypertension; Myocardial infarction; "memory problems"; ss - PSHx: 17:20 CABG; Heart stents; ss - Immunization history:: Adult Immunizations up to date. - Social history:: Smoking status: Patient/guardian denies using tobacco. - Ebola Screening: : Patient denies exposure to infectious person Patient denies travel to an Ebola-affected area in the 21 days before illness onset. ROS: 18:22 All other systems are negative. gs Exam: 18:22 Eyes: Pupils equal round and reactive to light, extra-ocular motions intact. Lids and gs lashes normal. Conjunctiva and sclera are non-icteric and not injected. Cornea within normal limits. Periorbital areas with no swelling, redness, or edema. 18:22 ENT: Nares patent. No nasal discharge, no septal abnormalities noted. Tympanic membranes are normal and external auditory canals are clear. Oropharynx with no redness, swelling, or masses, exudates, or evidence of obstruction, uvula midline. Mucous membranes moist. Neck: Trachea midline, no thyromegaly or masses palpated, and no cervical lymphadenopathy. Supple, full range of motion without nuchal rigidity, or vertebral point tenderness. No Meningismus. Chest/axilla: Normal chest wall appearance and motion. Nontender with no deformity. No lesions are appreciated. Respiratory: Lungs have equal breath sounds bilaterally, clear to auscultation and percussion. No rales, rhonchi or wheezes noted. No increased work of breathing, no retractions or nasal flaring. Back: No spinal tenderness. No costovertebral tenderness. Full range of motion. Skin: Warm, dry with normal turgor. Normal color with no rashes, no lesions, and no evidence of cellulitis. MS/ Extremity: Pulses equal, no cyanosis. Neurovascular intact. Full, normal range of motion. Neuro: Awake and alert, GCS 15, oriented to person, place, time, and situation. Cranial nerves II-XII grossly intact. Motor strength 5/5 in all extremities. Sensory grossly intact. Cerebellar exam normal. Normal gait. 18:22 Constitutional: The patient appears alert, awake. 18:22 Head/face: Noted is ecchymosis, that is moderate, of the chin, right jaw and left jaw, of the old. 18:22 Cardiovascular: Rate: tachycardic, Rhythm: regular, Pulses: no pulse deficits are appreciated. 18:22 Abdomen/GI: Inspection: distension, that is mild, Palpation: moderate abdominal tenderness, in the right lower quadrant and left lower quadrant. Vital Signs: 17:20 BP 133 / 60; Pulse 109; Resp 20; Pulse Ox 95% on R/A; Weight 65.32 kg; Pain 8/10; ss 17:28 Temp 99.2(O); ss 18:43 BP 149 / 56; Pulse 105; Resp 18; Pulse Ox 99% on R/A; em 19:57 BP 164 / 76; Pulse 101; Resp 18; Pulse Ox 96% on R/A; rv 20:30 BP 90 / 53; Pulse 87; Resp 16; Pulse Ox 100% ; bp MDM: 17:34 Patient medically screened. gs 18:22 Differential diagnosis: bowel obstruction, diverticulitis, non-specific abd pain, gs pancreatitis. Data reviewed: vital signs, nurses notes. Response to treatment: the patient's symptoms have mildly improved after treatment, and as a result, I will discharge patient. ED course: pt has been vomiting poor po intake risk of dehydration. 06/03 17:35 Order name: Basic Metabolic Panel 11/30 17:35 Order name: CBC with Diff 11/30 17:35 Order name: Hepatic Function 11/30 17:35 Order name: Lipase 11/30 17:35 Order name: Urine Microscopic Only 11/30 18:44 Order name: Blood Culture* 11/30 17:35 Order name: IV Saline Lock; Complete Time: 18:25 11/30 17:35 Order name: Labs collected and sent; Complete Time: 18:25 11/30 17:35 Order name: CT Stone Protocol; Complete Time: 18:16 gs Administered Medications: 18:20 Drug: NS 0.9% 1000 ml Route: IV; Rate: 1 bolus; Site: left antecubital; ss 20:29 Follow up: IV Status: Completed infusion; IV Intake: 1000ml bp 18:25 Drug: Zofran 4 mg Route: IVP; Site: left antecubital; ss 18:47 Follow up: Response: No adverse reaction em 19:41 Drug: Rocephin - (cefTRIAXone) 1 grams Route: IVPB; Infused Over: 30 mins; Site: left bp antecubital; 19:56 Follow up: Response: No adverse reaction rv 20:29 Follow up: IV Status: Completed infusion bp 19:41 Drug: Flagyl 500 mg Volume: 100 ml; Route: IVPB; Rate: 200 ml/hr; Infused Over: 30 bp mins; Site: left antecubital; 19:56 Follow up: Response: No adverse reaction rv 20:30 Follow up: IV Status: Completed infusion bp Disposition: 11/30/17 18:31 Hospitalization ordered by Lamont Hyman for Observation. Preliminary diagnosis are Vomiting, Dehydration, Diverticulosis of large intestine without perforation or abscess without bleeding. - Bed requested for Telemetry/MedSurg (observation). - Status is Observation. bp - Condition is Stable. - Problem is new. - Symptoms have improved. UTI on Admission? No Signatures: Dispatcher [employer] Corrie Haynes RN RN kl Smirch, Shelby, RN RN ss Fahad Dodge MD MD gs Peltier, Brian, RN RN bp Munoz, Edgar COMMISSARY REPRESENTATIVE em Sukhjinder Guillory RN rv Corrections: (The following items were deleted from the chart) 19:54 18:31 Hospitalization Ordered by Lamont Hyman MD for Observation. Preliminary kl diagnosis is Vomiting; Dehydration; Diverticulosis of large intestine without perforation or abscess without bleeding. Bed requested for Telemetry/MedSurg (observation). Status is Observation. Condition is Stable. Problem is new. Symptoms have improved. UTI on Admission? No. gs 20:47 19:54 11/30/2017 18:31 Hospitalization Ordered by Lamont Hyman MD for Observation. bp Preliminary diagnosis is Vomiting; Dehydration; Diverticulosis of large intestine without perforation or abscess without bleeding. Bed requested for Telemetry/MedSurg (observation). Status is Observation. Condition is Stable. Problem is new. Symptoms have improved. UTI on Admission? No. kl
[2017-11-30 18:46] LABS: Potassium 4.2 mEq/L (3.6-5.0)
[2017-11-30 18:52] LABS: Bilirubin Direct 0.4 mg/dL (0-0.2); Protein, Total 7.4 g/dL (6.0-8.3)
--- NOTE | 2017-11-30 19:32 | P.HP ---
Certification for Inpatient Patient admitted to: Inpatient With expected LOS: >2 Midnights Practitioner: I am a practitioner with admitting privileges, knowledge of patient current condition, hospital course, and medical plan of care. Services: Services provided to patient in accordance with Admission requirements found in Title 42 Section 412.3 of the Code of Federal Regulations Patient History Date of Service: 11/30/17 Reason for admission: colitis History of Present Illness: Ms Quiros is an 82 years old woman wit history of CAD s/p CABG, COPD, Dementia, who is poor historian, she felt last week hurting his right arm and shoulder. She came to ED and her XR's showed no fractures or dislocation. However, the patient was complaining of right shoulder pain today again, and her family call 911. At arrival to ED, she was complaining of abdominal pain. No fever, her temp at arrival was 99.2 F, WBC elevated 17.2K. CT abd/pelvis remarkable for sigmoid colitis. According to the patient she has not had nausea, vomiting or diarrhea. Allergies codeine [Codeine] Allergy (Verified 11/22/17 21:53) Itching Penicillins Allergy (Verified 11/22/17 21:53) Hives Home Medications: Aspirin Enteric Coated [ASPIRIN 81 MG EC*] 81 mg PO DAILY 11/05/12 Isosorbide Crowley [Imdur*] 30 mg PO DAILY 11/05/12 Loratadine [Claritin*] 10 mg PO PRN PRN 11/05/12 Omeprazole [Prilosec] 20 mg PO DAILY 11/05/12 Albuterol Sulfate [Proair Hfa] 2 inh IH TID 02/27/14 Niacin [Niacin ER] 500 mg PO DAILY 02/27/14 Welchol/ 3.75 gm PO BEDTIME 02/27/14 Levofloxacin [Levaquin] 500 mg PO DAILY #5 tab 11/23/17 Metoprolol Tartrate [Lopressor*] 12.5 mg PO BID #60 tab 11/23/17 Multivitamin with Iron [Daily Multivitamin with Iron] 1 each PO DAILY #90 tablet 11/23/17 Tramadol HCl [Ultram] 50 mg PO BID PRN #10 tablet 11/23/17 - Past Medical/Surgical History Diabetic: No -: COPD -: CAD, previous CABG -: Hypertension -: Cataracts -: Former tobacco use -: GERD -: Recent fall -: MT -: Appendectomy -: Bilateral Cataracts -: Tubal Ligation -: Triple Bypass -: Neuroma removed julisa feet -: Skin cancer removed from face -: Hysterectomy Psychosocial/ Personal History: Patient lives with her daughter. She has 6 children. - Family History Family History: Reviewed- Non-Contributory - Social History Smoking Status: Former smoker Alcohol use: No CD- Drugs: No Caffeine use: Yes Place of Residence: Home Review of Systems 10-point ROS is otherwise unremarkable Physical Examination - Physical Exam General: Alert, In no apparent distress, Confused HEENT: Atraumatic, PERRLA, Mucous membr. moist/pink, EOMI, Sclerae nonicteric Neck: Supple, 2+ carotid pulse no bruit, No LAD, Without JVD or thyroid abnormality Respiratory: Clear to auscultation bilaterally, Normal air movement Cardiovascular: Regular rate/rhythm, Normal S1 S2 Gastrointestinal: Normal bowel sounds, Tenderness (left lower quadrant.) Musculoskeletal: No tenderness Integumentary: No rashes Neurological: Normal speech, Normal strength at 5/5 x4 extr, Normal tone, Normal affect Lymphatics: No axilla or inguinal lymphadenopathy - Studies Laboratory Data (last 24 hrs) 11/30/17 18:20: WBC 17.2 H D, Hgb 11.3 L, Hct 34.3 L D, Plt Count 211 D 11/30/17 18:20: Sodium 137, Potassium 4.2, BUN 20, Creatinine 0.92, Glucose 151 H, Total Bilirubin 2.0 H, AST 31, ALT 19, Alkaline Phosphatase 44, Lipase 15 L Assessment and Plan - Problems (Diagnosis) (1) Colitis Current Visit: Yes Status: Acute (2) Right shoulder pain Current Visit: No Status: Acute Qualifiers: Chronicity: acute Qualified Code(s): M25.511 - Pain in right shoulder (3) CAD (coronary artery disease) Current Visit: No Status: Chronic Qualifiers: Coronary Disease-Associated Artery/Lesion type: unspecified vessel or lesion type [place] vs. transplanted heart: unspecified whether [place] or transplanted heart Associated angina: angina presence unspecified Qualified Code(s): I25.10 - Atherosclerotic heart disease of [place] coronary artery without angina pectoris (4) COPD (chronic obstructive pulmonary disease) Current Visit: No Status: Chronic Qualifiers: COPD type: chronic bronchitis Chronic bronchitis type: unspecified Qualified Code(s): J42 - Unspecified chronic bronchitis (5) DJD of shoulder Current Visit: No Status: Chronic Qualifiers: Osteoarthritis type: unspecified Laterality: right Qualified Code(s): M19.011 - Primary osteoarthritis, right shoulder (6) HTN (hypertension) Current Visit: No Status: Chronic Qualifiers: Hypertension type: essential hypertension Qualified Code(s): I10 - Essential (primary) hypertension - Plan #1 Colitis: possible underlying diverticulitis, blood cultures done, will continue empiric treatment with IV Cipro and Flagyl. Will start clear liquids in AM, order IV fluids. #2 CAD: stable, will resume home medication once verified. #3 right shoulder pain: Already had images showing no fracture or dislocation. Will order PT/OT and pain medication. - Advance Directives Does patient have a Living Will: No Does patient have a Durable POA for Healthcare: No - Code Status/Comfort Care Code Status Assessed: No Code Status: Full Code
[2017-11-30] MEDS ORDERED: CEFTRIAXONE/SWI 1gm 1 GM/10 ML SYR ONE (19:35)
[2017-11-30] MEDS ORDERED: METRONIDAZOLE 500mg IVPB 500 MG/100 ML BAG IV ONE (19:36)
[2017-11-30] MEDS ORDERED: ONDANSETRON 4 MG/2 ML VIAL IV PRN (21:10)
[2017-11-30] MEDS ORDERED: ACETAMINOPHEN 500 MG TAB PO PRN (21:10)
[2017-11-30 21:43] VITALS: BMI 28.8
[2017-11-30] MEDS: NA CHLORIDE 0.9% 1,000 ML IV SCH (22:12)
[2017-11-30] MEDS: CIPROFLOXACIN 400mg IV 400 MG/200 ML BAG IV SCH (22:13)
[2017-11-30 22:55] LABS: Urine Appearance CLEAR; Urine Bilirubin NEGATIVE (NEG); Urine Blood NEGATIVE (NEG); Urine Color DK YELLOW; Urine Glucose NEGATIVE (NEG); Urine Protein NEGATIVE (NEG)
[2017-11-30 23:35] LABS: Urine Bacteria >50 /HPF (<20); Urine Culture Reflex Order REFLEXED; Urine RBC <5 /HPF (NONE SEEN)
[2017-12-01] MEDS: METRONIDAZOLE 500mg IVPB 500 MG/100 ML BAG IV SCH ×3 (01:45→16:48)
[2017-12-01 04:32] LABS: Absolute Monocytes 0.8 K/uL (0.1-1.3); Basophils % 0.6 % (0-1.3); Eosinophils % 0.4 % (0-4.4); Hematocrit 29.3 % (36.0-45.0); Lymphocytes % 13.3 % (15.3-44.8); MCH 34.6 pg (27.0-35.0); MCV 105.2 fL (80-100); MPV 10.2 fL (7.6-11.3); Monocytes % 5.2 % (3.3-12.3); RBC Red Blood Cell Count 2.79 M/uL (3.86-4.86)
[2017-12-01 04:56] LABS: Blood Morphology Comment NOTED (NOT SEEN); Macrocytosis 1+; Platelet Estimate ADEQ; Urine White Blood Cell Casts OK
[2017-12-01 05:01] LABS: Magnesium 1.9 mg/dL (1.8-2.5); Potassium 3.5 mEq/L (3.6-5.0)
[2017-12-01] MEDS ORDERED: POTASSIUM CL SA 10 MEQ TAB PO ONE (06:00)
[2017-12-01] MEDS: CIPROFLOXACIN 400mg IV 400 MG/200 ML BAG IV SCH ×2 (09:02→20:14)
[2017-12-01] MEDS: ENOXAPARIN 40 MG/0.4 ML SQ SCH (09:02)
[2017-12-01] MEDS: NA CHLORIDE 0.9% 1,000 ML IV SCH ×3 (09:03→20:15)
[2017-12-01] MEDS ORDERED: IPRATROPIUM BROM 0.5MG/2.5ML NEB PRN (09:21)
[2017-12-01] MEDS ORDERED: ALBUTEROL 2.5 MG/3 ML NEB SOL NEB PRN (09:21)
--- NOTE | 2017-12-01 09:25 | P.PN ---
Subjective Date of Service: 12/01/17 Primary Care Provider: none Chief Complaint: colitis Subjective: Other (Patient still with mild pain to the left lower quadrant.) Physical Examination - Vital Signs Temperature: 98.2 F Blood Pressure: 118/56 Pulse: 84 Respirations: 16 Pulse Ox (%): 92 - Physical Exam General: Alert, In no apparent distress, Cooperative HEENT: Atraumatic Neck: Supple Respiratory: Clear to auscultation bilaterally, Normal air movement Cardiovascular: Regular rate/rhythm Gastrointestinal: Normal bowel sounds, Soft and benign, Non-distended, No masses , No rebound, No guarding, Tenderness (Mild pain to the left lower quadrant) Musculoskeletal: No erythema, No tenderness, No warmth Integumentary: No tenderness/swelling, No erythema, No warmth, No cyanosis Neurological: Normal speech, Normal strength at 5/5 x4 extr, Normal tone, Normal affect - Studies Laboratory Data (last 24 hrs) 11/30/17 18:20: WBC 17.2 H D, Hgb 11.3 L, Hct 34.3 L D, Plt Count 211 D 11/30/17 18:20: Sodium 137, Potassium 4.2, BUN 20, Creatinine 0.92, Glucose 151 H, Total Bilirubin 2.0 H, AST 31, ALT 19, Alkaline Phosphatase 44, Lipase 15 L Medications List Reviewed: Yes Assessment & Plan - Problems (Diagnosis) (1) Colitis Onset Date: 12/01/17 Current Visit: Yes Status: Acute Plan: Patient with left-sided colitis. Will continue with antibiotic therapy. Will advance diet slowly. Patient on clear liquid. Will provide medication for pain as needed. Will ambulate patient. (2) CAD (coronary artery disease) Onset Date: 12/01/17 Current Visit: Yes Status: Chronic Plan: Will continue with her medication. Qualifiers: Coronary Disease-Associated Artery/Lesion type: unspecified vessel or lesion type [place] vs. transplanted heart: unspecified whether [place] or transplanted heart Associated angina: angina presence unspecified Qualified Code(s): I25.10 - Atherosclerotic heart disease of [place] coronary artery without angina pectoris (3) COPD (chronic obstructive pulmonary disease) Onset Date: 12/01/17 Current Visit: Yes Status: Chronic Plan: Will provide COPD medication. Qualifiers: COPD type: chronic bronchitis Chronic bronchitis type: unspecified Qualified Code(s): J42 - Unspecified chronic bronchitis (4) HTN (hypertension) Onset Date: 12/01/17 Current Visit: Yes Status: Chronic Plan: Will continue with her medication. Will hold if blood pressure less than 120 systolic. Qualifiers: Hypertension type: essential hypertension Qualified Code(s): I10 - Essential (primary) hypertension (5) Anemia Current Visit: Yes Status: Acute Plan: Anemia noted. Will monitor closely. Patient with colitis. Qualifiers: Anemia type: other cause Other causes of anemia: chronic disease, other Qualified Code(s): D63.8 - Anemia in other chronic diseases classified elsewhere (6) Hypokalemia Current Visit: Yes Status: Acute Plan: Will monitor and replace appropriately. Replacement protocol in place Discharge Plan: Home Plan to discharge in: 48 Hours Time Spent Managing Pts Care (In Minutes): 55
[2017-12-01 13:38] LABS: Hematocrit 30.8 % (36.0-45.0)
[2017-12-01] MEDS: ARFORMOTEROL TARTRATE 15 MCG/2 ML VIAL.NEB NEB SCH (19:57)
[2017-12-01 23:05] VITALS: O2SAT 97
[2017-12-02] MEDS: METRONIDAZOLE 500mg IVPB 500 MG/100 ML BAG IV SCH ×2 (00:44→08:52)
[2017-12-02 06:43] LABS: Absolute Lymphocytes (CBC) 2.2 K/uL (0.7-4.9); Absolute Monocytes 0.5 K/uL (0.1-1.3); Basophils % 0.8 % (0-1.3); Eosinophils % 2.7 % (0-4.4); Hematocrit 27.2 % (36.0-45.0); Lymphocytes % 21.9 % (15.3-44.8); MCH 35.9 pg (27.0-35.0); MPV 10.1 fL (7.6-11.3); Magnesium 1.9 mg/dL (1.8-2.5); Monocytes % 5.2 % (3.3-12.3); Potassium 3.6 mEq/L (3.6-5.0); RBC Red Blood Cell Count 2.56 M/uL (3.86-4.86)
[2017-12-02] MEDS ORDERED: POTASSIUM CL SA 10 MEQ TAB PO ONE (07:02)
[2017-12-02] MEDS: ARFORMOTEROL TARTRATE 15 MCG/2 ML VIAL.NEB NEB SCH (07:50)
[2017-12-02] MEDS: ENOXAPARIN 40 MG/0.4 ML SQ SCH (08:52)
[2017-12-02] MEDS: CIPROFLOXACIN 400mg IV 400 MG/200 ML BAG IV SCH (08:53)
[2017-12-02] MEDS: NA CHLORIDE 0.9% 1,000 ML IV SCH ×2 (08:54→13:10)
[2017-12-02] MEDS ORDERED: CLOPIDOGREL 75 MG TABLET PO SCH (09:00)
[2017-12-02] MEDS ORDERED: ISOSORBIDE MONO SR 30 MG TAB PO SCH (09:00)
[2017-12-02] MEDS ORDERED: LISINOPRIL 10 MG TAB PO SCH ×2 (09:00)
[2017-12-02] MEDS ORDERED: MULTIVIT W/ MINERAL TAB PO SCH (09:00)
--- NOTE | 2017-12-02 09:53 | P.PN ---
Subjective Date of Service: 12/02/17 Primary Care Provider: none Chief Complaint: colitis Subjective: Other (Patient is slowly improving. Patient having bowel movement. Tolerating clear liquid diet) Physical Examination - Vital Signs Temperature: 97.1 F Blood Pressure: 117/58 Pulse: 75 Respirations: 20 Pulse Ox (%): 95 - Physical Exam General: Alert, In no apparent distress, Cooperative HEENT: Atraumatic Neck: Supple Respiratory: Clear to auscultation bilaterally, Normal air movement Cardiovascular: Normal pulses, Regular rate/rhythm Gastrointestinal: Normal bowel sounds, Soft and benign, Non-distended, No masses , No rebound, No guarding, Tenderness (Less tenderness to the abdomen.) Musculoskeletal: No erythema, No tenderness, No warmth Integumentary: No tenderness/swelling, No erythema, No warmth, No cyanosis Neurological: Normal speech, Normal strength at 5/5 x4 extr, Normal tone, Normal affect - Studies Medications List Reviewed: Yes Assessment & Plan - Problems (Diagnosis) (1) Colitis Onset Date: 12/01/17 Current Visit: Yes Status: Acute Plan: Patient with left-sided colitis. Patient is slowly improving. Will continue with antibiotic therapy. C diff culture negative. Will advance diet slowly. Will ambulate patient. Anticipate discharge in the next 1-2 days. Patient will need colonoscopy in 4-6 weeks with close follow up with GI. (2) CAD (coronary artery disease) Onset Date: 12/01/17 Current Visit: Yes Status: Chronic Plan: Will continue with her medication. Qualifiers: Coronary Disease-Associated Artery/Lesion type: unspecified vessel or lesion type [place] vs. transplanted heart: unspecified whether [place] or transplanted heart Associated angina: angina presence unspecified Qualified Code(s): I25.10 - Atherosclerotic heart disease of [place] coronary artery without angina pectoris (3) COPD (chronic obstructive pulmonary disease) Onset Date: 12/01/17 Current Visit: Yes Status: Chronic Plan: Will provide COPD medication. Qualifiers: COPD type: chronic bronchitis Chronic bronchitis type: unspecified Qualified Code(s): J42 - Unspecified chronic bronchitis (4) HTN (hypertension) Onset Date: 12/01/17 Current Visit: Yes Status: Chronic Plan: Will continue with her medication. Will hold if blood pressure less than 120 systolic. Qualifiers: Hypertension type: essential hypertension Qualified Code(s): I10 - Essential (primary) hypertension (5) Anemia Current Visit: Yes Status: Acute Plan: Anemia noted. Will monitor closely. Patient with colitis. Qualifiers: Anemia type: other cause Other causes of anemia: chronic disease, other Qualified Code(s): D63.8 - Anemia in other chronic diseases classified elsewhere (6) Hypokalemia Current Visit: Yes Status: Acute Plan: Will monitor and replace appropriately. Replacement protocol in place Discharge Plan: Home Plan to discharge in: 24 Hours Time Spent Managing Pts Care (In Minutes): 55
[2017-12-02 13:45] VITALS: BP 166/78; TEMP 97.4
--- NOTE | 2017-12-02 14:17 | P.DS ---
Admission Date: 11/30/17 Discharge Date: 12/02/17 Primary Care Provider: Dr. Gale; GI-Dr. Bland Disposition: ROUTINE DISCHARGE Discharge Condition: GOOD Reason for Admission: colitis Procedures: CT scan: Left-sided colitis. - Problems (1) Colitis Onset Date: 12/01/17 Current Visit: Yes Status: Acute (2) CAD (coronary artery disease) Onset Date: 12/01/17 Current Visit: Yes Status: Chronic Qualifiers: Coronary Disease-Associated Artery/Lesion type: unspecified vessel or lesion type [place] vs. transplanted heart: unspecified whether [place] or transplanted heart Associated angina: angina presence unspecified Qualified Code(s): I25.10 - Atherosclerotic heart disease of [place] coronary artery without angina pectoris (3) COPD (chronic obstructive pulmonary disease) Onset Date: 12/01/17 Current Visit: Yes Status: Chronic Qualifiers: COPD type: chronic bronchitis Chronic bronchitis type: unspecified Qualified Code(s): J42 - Unspecified chronic bronchitis (4) HTN (hypertension) Onset Date: 12/01/17 Current Visit: Yes Status: Chronic Qualifiers: Hypertension type: essential hypertension Qualified Code(s): I10 - Essential (primary) hypertension (5) Anemia Current Visit: Yes Status: Acute Qualifiers: Anemia type: other cause Other causes of anemia: chronic disease, other Qualified Code(s): D63.8 - Anemia in other chronic diseases classified elsewhere (6) Hypokalemia Current Visit: Yes Status: Acute Brief History of Present Illness: 82-year-old female presented to the ER with abdominal pain. Patient found to have left-sided colitis on CT scan. Patient was admitted for treatment. Hospital Course: During the course of her stay her condition improved. Patient was able tolerate a diet. White count improved. At discharge she will continue with Cipro 500 mg 1 pill twice daily and Flagyl 500 mg 1 pill 3 times a day for 10 days. Recommendation is for the patient follow up with GI in 2-4 weeks monitor progress. Patient will continue with lactobacillus 3 times a day. C diff colitis was ruled out. Recommendation is for the patient to have a colonoscopy in 4-6 weeks. Patient has multiple medical problems including hypertension, CAD and dementia. She will continue with her medication. Patient was anemic. Patient will also be started on iron twice daily. Recommendation is to recheck CBC in 1-2 weeks to monitor progress. Recommendation on no further use of nonsteroidal anti-inflammatories is recommended. Vital Signs/Physical Exam: Temp Pulse Resp BP Pulse Ox 97.4 F 99 H 18 166/78 H 95 12/02/17 12:00 12/02/17 12:00 12/02/17 12:00 12/02/17 12:00 12/02/17 12:00 General: Alert, In no apparent distress, Oriented x3, Cooperative HEENT: Atraumatic Neck: Supple Respiratory: Clear to auscultation bilaterally, Normal air movement Cardiovascular: Normal pulses, Regular rate/rhythm Gastrointestinal: Normal bowel sounds, Soft and benign, Non-distended, No tenderness, No masses, No rebound, No guarding Musculoskeletal: No erythema, No tenderness, No warmth Integumentary: No tenderness/swelling, No erythema, No warmth, No cyanosis Neurological: Normal speech, Normal strength at 5/5 x4 extr, Normal tone, Normal affect Lymphatics: No axilla or inguinal lymphadenopathy Laboratory Data at Discharge: WBC 10.1 K/uL (4.3-10.9) D 12/02/17 05:39 Hgb 9.2 g/dL (12.0-15.0) L 12/02/17 05:39 Hct 27.2 % (36.0-45.0) L 12/02/17 05:39 Plt Count 150 K/uL (152-406) L 12/02/17 05:39 Sodium 142 mEq/L (135-145) 12/02/17 05:39 Potassium 3.6 mEq/L (3.6-5.0) 12/02/17 05:39 BUN 10 mg/dL (6-20) 12/02/17 05:39 Creatinine 0.75 mg/dL (0.44-1.00) 12/02/17 05:39 Glucose 104 mg/dL (65-120) 12/02/17 05:39 Magnesium 1.9 mg/dL (1.8-2.5) 12/02/17 05:39 Total Bilirubin 2.0 mg/dL (0.3-1.2) H 11/30/17 18:20 AST 31 IU/L (10-42) 11/30/17 18:20 ALT 19 IU/L (10-60) 11/30/17 18:20 Alkaline Phosphatase 44 IU/L (42-121) 11/30/17 18:20 Lipase 15 U/L (22-51) L 11/30/17 18:20 Home Medications: Isosorbide [place] [Imdur*] 30 mg PO DAILY 11/05/12 Loratadine [Claritin*] 10 mg PO PRN PRN 11/05/12 Tramadol HCl [Ultram] 50 mg PO BID PRN #10 tablet 11/23/17 Clopidogrel Bisulfate [Plavix*] 75 mg PO DAILY 12/01/17 Fluticasone/Vilanterol [Breo Ellipta 100-25 Mcg INH] 1 each IH BID PRN 12/01/17 Lisinopril [Prinivil*] 10 mg PO DAILY 12/01/17 Montelukast Sodium [Singulair] 10 mg PO BEDTIME 12/01/17 Ciprofloxacin HCl [Cipro 500 MG Tablet] 500 mg PO BID #20 tab 12/02/17 Ferrous Sulfate [Iron] 325 mg PO BID #60 tablet 12/02/17 Lactobacillus Acidophilus [Acidophilus Lactobacilli] 1 each PO TID #30 capsule 12/02/17 Metronidazole [Flagyl] 500 mg PO Q8H #30 tablet 12/02/17 New Medications: Ciprofloxacin HCl [Cipro 500 MG Tablet] 500 mg PO BID #20 tab Ferrous Sulfate [Iron] 325 mg PO BID #60 tablet Lactobacillus Acidophilus [Acidophilus Lactobacilli] 1 each PO TID #30 capsule Metronidazole [Flagyl] 500 mg PO Q8H #30 tablet Patient Discharge Instructions: 1. Patient will need a follow-up the PCP in 1 week to follow up this hospitalization. 2. Patient presented with abdominal pain Patient found to have left-sided colitis. Patient much improved. At discharge she will continue with Cipro 5 mg 1 pill twice daily and Flagyl 500 mg 1 pill 3 times a day for 10 days. Patient will also continue with lactobacillus twice daily. Recommendation is for the patient follow up with GI in 2-4 weeks. Patient will need colonoscopy in 4-6 weeks. 3. Patient found to have mild anemia. Patient will continue with iron 325 mg 1 pill twice daily. Recommendation is to recheck CBC in 1-2 weeks to monitor progress. 4. Recommendation on no further use of nonsteroidal anti-inflammatories is recommended. 5. Patient with history of CAD, hypertension, COPD, and dementia. She will continue with her medications. Diet: GI soft Activity: Ad daniel Time spent managing pt's care (in minutes): 55
[2017-12-02 15:40] LABS: Ferritin 325.1 ng/ml (11.0-306.8)
== END 2017-12-02 17:05 | disposition home or self-care (01) ==
LOC: ER 17:07 → ERHOLD 18:31 → 4TH 20:18
PROVIDERS: ADMIT Internal Medicine; ATTEND Internal Medicine
DX: K52.9 Noninfective gastroenteritis and colitis, unspecified (principal); E87.6 Hypokalemia; I25.10 Atherosclerotic heart disease of native coronary artery without angina pectoris; J44.9 Chronic obstructive pulmonary disease, unspecified; I10 Essential (primary) hypertension; D64.9 Anemia, unspecified; F03.90 Unspecified dementia, unspecified severity, without behavioral disturbance, psychotic disturbance, mood disturbance, and anxiety; Z95.1 Presence of aortocoronary bypass graft; Z88.0 Allergy status to penicillin; Z79.82 Long term (current) use of aspirin
CPT/HCPCS: 36415 ×2; 74176; 76377; 80048 ×3; 80076; 81001; 82607; 82728; 83540; 83690; 83735 ×2; 84466; 85014 ×2; 85018 ×2; 85025 ×3; 87040 ×2; 87086; 87088; 94640; 96361; 96365; 96368; 96375; 97003; 97116 ×3; 97163; 97530; 99285; G0378 ×2; J0696; J0744 ×4; J1650 ×2; J2405; J7030 ×5; J7605 ×2

== ENCOUNTER 2018-02-07 09:54 | Emergency (ER) | payer OTHER ==
--- OUTSIDE RECORDS SUMMARY | 2018-02-07 09:55 | XMS REPORT ---
:1935 Author Organization [employer] Care Team Providers Name Role Phone Gale, Na Provider Role Unavailable Allergies, Adverse Reactions, Alerts Substance Reaction Event Type penicillin Info Not Available Drug Allergy codeine Info Not Available Drug Allergy Problems Problem Type Condition Code Onset Dates Condition Status Problem Edema leg R60.0 Active Problem Stented coronary artery Z95.5 Active Problem Chronic obstructive pulmonary J44.9 Active disease Problem Colitis K52.9 Active Assessment Hypokalemia E87.6 Active Problem Hospital discharge follow-up Z09 Active Problem Hypokalemia E87.6 Active Problem Hypertension, unspecified type I10 Active Problem Acute urinary tract infection N39.0 Active Problem Iron deficiency anemia, unspecified D50.9 Active iron deficiency anemia type Problem Acute pain of right shoulder M25.511 Active Assessment Acute pain of right shoulder M25.511 Active Assessment Colitis K52.9 Active Assessment Hypertension, unspecified type I10 Active Assessment Iron deficiency anemia, unspecified D50.9 Active iron deficiency anemia type Problem Hypertension I10 Active Problem Allergic rhinitis J30.9 Active Assessment Hospital discharge follow-up Z09 Active Problem Hyperlipidemia E78.5 Active Problem CHF (congestive heart failure) I50.9 Active Problem Dysuria R30.0 Active Medications Medication Code Code Instructions Start End Status Dosage System Date Date Metoprolol [facility] 48894315046 75 MG Orally Active 1 tablet Tartrate Twice a day with food Plavix [facility] 31697989939 75 MG Orally Active 1 tablet Once a day Ventolin HFA [facility] 53432514553 108 (90 Base) Active 2 puffs as MCG/ACT needed Inhalation every 6 hrs Breo Ellipta [facility] 13115258332 200-25 MCG/INH Active 1 puff Inhalation Once a day Tramadol HCl [facility] 92166077293 50 MG Orally December 09November Active 1 tablet every 6 hrs 2018 22, as needed 2018 Aspir-81 [facility] 40757148211 81 MG Orally Active 1 tablet Once a day Lisinopril [facility] 94235514784 10 MG Orally Active 1 tablet Once a day Singulair [facility] 05019101062 10 MG Orally Active 1 tablet Once a day in the evening Macrobid [facility] 72397758905 100 MG Orally Active 1 capsule every 12 hrs with food Bactrim DS [facility] 82974544218 800-160 MG Active 1 tablet Orally Twice a day Pravastatin [facility] 53757522987 40 MG Orally Active 1 tablet Sodium Once a day isosorbide [facility] 03822950183 30mg orally once Active 1 tablet mononitrate daily Results No Known Results Summary Purpose [employer]Works Submission
--- OUTSIDE RECORDS SUMMARY | 2018-02-07 09:56 | XMS REPORT ---
:1935 Author Organization [employer] Care Team Providers Name Role Phone Gale, Na Provider Role Unavailable Allergies, Adverse Reactions, Alerts Substance Reaction Event Type penicillin Info Not Available Drug Allergy codeine Info Not Available Drug Allergy Problems Problem Type Condition Code Onset Dates Condition Status Problem Dysuria R30.0 Active Problem Colitis K52.9 Active Problem Edema leg R60.0 Active Problem Cervical radiculopathy due to M47.22 Active degenerative joint disease of spine Assessment Cervicalgia M54.2 Active Problem Iron deficiency anemia, unspecified D50.9 Active iron deficiency anemia type Problem Cervicalgia M54.2 Active Problem Hospital discharge follow-up Z09 Active Problem Hypokalemia E87.6 Active Problem Acute pain of right shoulder M25.511 Active Problem Hypertension, unspecified type I10 Active Problem Acute urinary tract infection N39.0 Active Assessment Cervical radiculopathy due to M47.22 Active degenerative joint disease of spine Assessment Acute pain of right shoulder M25.511 Active Problem CHF (congestive heart failure) I50.9 Active Problem Hypertension I10 Active Problem Chronic obstructive pulmonary J44.9 Active disease Problem Allergic rhinitis J30.9 Active Problem Stented coronary artery Z95.5 Active Problem Hyperlipidemia E78.5 Active Medications Medication Code Code Instructions Start End Status Dosage System Date Date Plavix [facility] 37124569689 75 MG Orally Active 1 tablet Once a day Pravastatin [facility] 43407928843 40 MG Orally Active 1 tablet Sodium Once a day Macrobid [facility] 68044622730 100 MG Orally Active 1 capsule every 12 hrs with food Tylenol # 3 NDC 0 300/30mg PO January 15, Jan 30, Active one tab twice a day PRN 2017 2018 PAIN Aspir-81 [facility] 50037411280 81 MG Orally Active 1 tablet Once a day isosorbide [place] 29696410642 30mg orally Active 1 tablet mononitrate once daily Lisinopril [facility] 69624210960 10 MG Orally Active 1 tablet Once a day Bactrim DS [facility] 68266627326 800-160 MG Active 1 tablet Orally Twice a day Singulair [facility] 53276783951 10 MG Orally Active 1 tablet in Once a day the evening Diclofenac [facility] 62570919339 1 % Transdermal January 15, Active as directed Sodium twice a day as 2018 needed for pain Metoprolol [facility] 19753791775 75 MG Orally Active 1 tablet Tartrate Twice a day with food Ventolin HFA [facility] 31804857863 108 (90 Base) Active 2 puffs as MCG/ACT needed Inhalation every 6 hrs Breo Ellipta [facility] 48457037653 200-25 MCG/INH Active 1 puff Inhalation Once a day Results No Known Results Summary Purpose [employer]Works Submission
[2018-02-07] MEDS ORDERED: MEPERIDINE HCL 25 MG/0.5 ML ONE ×2 (10:16→11:03)
[2018-02-07] MEDS ORDERED: IBUPROFEN 200 MG TAB PO ONE (10:17)
[2018-02-07] MEDS ORDERED: IBUPROFEN 400 MG TAB ONE (10:17)
--- NOTE | 2018-02-07 11:21 | RAD REPORT ---
EXAM DESCRIPTION: RAD - Chest Single View - 02/07/2018 10:45 am CLINICAL HISTORY: right sided pain Chest pain. COMPARISON: Chest Pa And Lat (2 Views) dated 09/17/2016; CHEST PA AND LAT 2 VIEW dated 07/27/2014; [facility] ST SINGLE VIEW dated 02/27/2014; CHEST SINGLE VIEW dated 06/10/2013 FINDINGS: Portable technique limits examination quality. The lungs are grossly clear. The heart is normal in size. Mild degenerative changes are present both shoulders.Sternotomy wires are present. IMPRESSION: No acute intrathoracic process suspected.
--- NOTE | 2018-02-07 11:23 | RAD REPORT ---
EXAM DESCRIPTION: RAD - Shoulder Right 2 View - 02/07/2018 10:45 am CLINICAL HISTORY: PAIN COMPARISON: Shoulder Right 2 View dated 11/20/2017 FINDINGS: Glenohumeral and AC joint arthritic changes are present. The distal clavicle shows evidenc e of mild bony remodeling since the comparative study which probably indicates subacute/healing fract ure.
[2018-02-07 11:33] LABS: Absolute Lymphocytes (CBC) 1.3 K/uL (0.7-4.9); Absolute Monocytes 0.6 K/uL (0.1-1.3); Absolute Neutrophil 4.5 K/uL (1.8-8.0); Eosinophils % 4.1 % (0-4.4); Hematocrit 30.5 % (36.0-45.0); MCH 35.1 pg (27.0-35.0); MCV 102.2 fL (80-100); MPV 9.7 fL (7.6-11.3); Monocytes % 8.5 % (3.3-12.3); RBC Red Blood Cell Count 2.99 M/uL (3.86-4.86)
[2018-02-07 11:45] LABS: Potassium 4.2 mmol/L (3.5-5.1)
--- NOTE | 2018-02-07 11:53 | EDPHYS ---
Physician Documentation [facility] Name: Nanette Quiros Age: 82 yrs Sex: Female : 1935 Arrival Date: 02/07/2018 Time: 09:56 Bed 5 Private MD: Loree Gale ED Physician Davy Jordan HPI: 02/07 10:09 This 82 yrs old Female presents to ER via EMS with complaints of Shoulder rn Pain. 10:09 The patient or guardian complains of pain. right shoulder. Onset: The symptoms/episode rn began/occurred 3 day(s) ago. Modifying factors: the symptoms are alleviated by nothing. The symptoms are aggravated by movement, rotation of arm. Associated signs and symptoms: Pertinent negatives: abdominal pain, chest pain, diaphoresis, neck pain, tingling. Severity of symptoms: At their worst the symptoms were moderate, in the emergency department the symptoms are unchanged. The patient has not experienced similar symptoms in the past. The patient has not recently seen a physician. Reports fell approx 3 weeks ago with outstretched arms, doesn't recall obvious shoulder injury, reports intermittent sharp stabbing pains in right shoulder, worse with movement, not assoc with chest pain/sob, no abd pain, no new trauma. . Historical: - Allergies: 09:58 Codeine; sv 09:58 PENICILLINS; sv - PMHx: 09:58 "memory problems"; Asthma; COPD; Hyperlipidemia; Hypertension; Myocardial infarction; sv - PSHx: 09:58 CABG; Heart stents; sv - Immunization history:: Adult Immunizations up to date. - Social history:: Smoking status: Patient/guardian denies using tobacco. - Ebola Screening: : No symptoms or risks identified at this time. - Family history:: not pertinent. - Hospitalizations: : No recent hospitalization is reported. ROS: 10:09 Constitutional: Negative for fever, chills, and weight loss, Eyes: Negative for injury, rn pain, redness, and discharge, Neck: Negative for injury, pain, and swelling, Cardiovascular: Negative for chest pain, palpitations, and edema, Respiratory: Negative for shortness of breath, cough, wheezing, and pleuritic chest pain, Abdomen/GI: Negative for abdominal pain, nausea, vomiting, diarrhea, and constipation, MS/Extremity: Negative for injury and deformity, Skin: Negative for injury, rash, and discoloration, Neuro: Negative for headache, weakness, numbness, tingling, and seizure. Exam: 10:09 Constitutional: This is a well developed, well nourished patient who is awake, alert, rn appears uncomfortable with intermittent cringes due to pain and grabbing right shoulder Head/Face: Normocephalic, atraumatic. Eyes: Pupils equal round and reactive to light, extra-ocular motions intact. Lids and lashes normal. Conjunctiva and sclera are non-icteric and not injected. Cornea within normal limits. Periorbital areas with no swelling, redness, or edema. Neck: Trachea midline, no thyromegaly or masses palpated, and no cervical lymphadenopathy. Supple, full range of motion without nuchal rigidity, or vertebral point tenderness. No Meningismus. Cardiovascular: Regular rate and rhythm with a normal S1 and S2. No gallops, murmurs, or rubs. Normal PMI, no JVD. No pulse deficits. Respiratory: Lungs have equal breath sounds bilaterally, clear to auscultation and percussion. No rales, rhonchi or wheezes noted. No increased work of breathing, no retractions or nasal flaring. Abdomen/GI: Soft, non-tender, with normal bowel sounds. No distension or tympany. No guarding or rebound. No evidence of tenderness throughout. MS/ Extremity: Pulses equal, no cyanosis. Neurovascular intact. Full, normal range of motion. Equal circumference. Neuro: Awake and alert, GCS 15, oriented to person, place, and situation. Cranial nerves II-XII grossly intact. Motor strength 5/5 in all extremities. Sensory grossly intact. Vital Signs: 09:58 BP 136 / 80; Pulse 90; Resp 18; Temp 98.2; Pulse Ox 98% ; sv 10:56 BP 143 / 58; Pulse 91; Resp 18; Pulse Ox 99% ; sv MDM: 09:56 Patient medically screened. rn 11:51 Differential diagnosis: humeral head fracture, glenoid fracture, DJD, tendonitis. Data rn reviewed: vital signs, nurses notes, lab test result(s), EKG, radiologic studies, plain films, and as a result, I will discharge patient. Counseling: I had a detailed discussion with the patient and/or guardian regarding: the historical points, exam findings, and any diagnostic results supporting the discharge/admit diagnosis, lab results, radiology results, the need for outpatient follow up, to return to the emergency department if symptoms worsen or persist or if there are any questions or concerns that arise at home. Response to treatment: the patient's symptoms have mildly improved after treatment, and as a result, I will discharge patient. Special discussion: I discussed with the patient/guardian in detail that at this point there is no indication for admission to the hospital. It is understood, however, that if the symptoms persist or worsen the patient needs to return immediately for re-evaluation. 02/07 10:03 Order name: CBC with Diff; Complete Time: 11:50 rn 02/07 10:03 Order name: Basic Metabolic Panel; Complete Time: : rn 02/07 10:03 Order name: XRAY Shoulder RIGHT 2 view; Complete Time: : rn 02/07 10:03 Order name: XRAY Chest (1 view); Complete Time: 11: rn 02/07 10:03 Order name: Troponin (emerg Dept Use Only); Complete Time: 11:50 rn 02/07 10:03 Order name: IV Start; Complete Time: 10: rn 02/07 10:03 Order name: EKG; Complete Time: 10: rn 02/07 10:03 Order name: EKG - Nurse/Tech; Complete Time: 10: rn 02/07 11:26 Order name: Sling; Complete Time: 12:25 sg Administered Medications: 10:21 Drug: Motrin 600 mg Route: PO; sv 11:28 Follow up: Response: No adverse reaction sv 10:21 Drug: Demerol - Meperidine 12.5 mg Route: IVP; Site: left forearm; sv 10:45 Follow up: Response: No adverse reaction; No change in condition sv 10:50 Drug: Demerol - Meperidine 12.5 mg Route: IVP; Site: left forearm; sv 11:28 Follow up: Response: No adverse reaction sv Disposition: 02/07/18 11:52 Discharged to Home. Impression: Subacute distal clavicle fracture, Osteoarthritis, unspecified site. - Condition is Stable. - Discharge Instructions: Arthritis, Clavicle Fracture, Shoulder Pain. - Medication Reconciliation Form, Thank You Letter, Antibiotic Education, Prescription Opioid Use form. - Follow up: Private Physician; When: As needed; Reason: Recheck today's complaints, Re-evaluation by your physician. - Problem is new. - Symptoms have improved. Signatures: Dispatcher [employer] Mariposa Severino RN RN sv Gay, Steven, RN RN sg Nieto, Roman, MD MD rn Baxter, Heather, RN RN hb Corrections: (The following items were deleted from the chart) 13:11 11:52 02/07/2018 11:52 Discharged to Home. Impression: Subacute distal clavicle hb fracture; Osteoarthritis, unspecified site. Condition is Stable. Forms are Medication Reconciliation Form, Thank You Letter, Antibiotic Education, Prescription Opioid Use. Follow up: Private Physician; When: As needed; Reason: Recheck today's complaints, Re-evaluation by your physician. Problem is new. Symptoms have improved. rn
--- NOTE | 2018-02-07 11:53 | ER ---
Nurse's Notes [facility] Name: Nanette Quiros Age: 82 yrs Sex: Female : 1935 Arrival Date: 02/07/2018 Time: 09:56 Bed 5 Private MD: Loree Gale Diagnosis: Subacute distal clavicle fracture;Osteoarthritis, unspecified site Presentation: 02/07 09:51 Presenting complaint: EMS states: right shoulder pain that radiates to her back. Pt had sv an incident that occurred 2 weeks ago. BP 150/70 HR-108. Transition of care: patient was not received from another setting of care. Onset of symptoms was February 07, 2018. Risk Assessment: Do you want to hurt yourself or someone else? Patient reports no desire to harm self or others. Initial Sepsis Screen: Does the patient meet any 2 criteria? No. Patient's initial sepsis screen is negative. Does the patient have a suspected source of infection? No. Patient's initial sepsis screen is negative. Care prior to arrival: None. 09:51 Method Of Arrival: EMS: [facility] sv 09:51 Acuity: BAO 4 sv Triage Assessment: 09:51 General: Appears in no apparent distress. uncomfortable, well developed, Behavior is sv cooperative, anxious. Pain: Complains of pain in right scapular area Pain currently is 3 out of 10 on a pain scale. Is continuous, Aggravated by increased activity. EENT: No signs and/or symptoms were reported regarding the EENT system. Neuro: Level of Consciousness is awake, alert, obeys commands, Oriented to person, place, Pt reports "problems with memory". Moves all extremities. Respiratory: Respiratory effort is even, unlabored, Respiratory pattern is regular, symmetrical. Derm: Skin is normal. Musculoskeletal: Range of motion: limited in right shoulder. Historical: - Allergies: 09:58 Codeine; sv 09:58 PENICILLINS; sv - PMHx: 09:58 "memory problems"; Asthma; COPD; Hyperlipidemia; Hypertension; Myocardial infarction; sv - PSHx: 09:58 CABG; Heart stents; sv - Immunization history:: Adult Immunizations up to date. - Social history:: Smoking status: Patient/guardian denies using tobacco. - Ebola Screening: : No symptoms or risks identified at this time. - Family history:: not pertinent. - Hospitalizations: : No recent hospitalization is reported. Screenin:59 Abuse screen: Denies threats or abuse. Denies injuries from another. Nutritional sv screening: No deficits noted. Tuberculosis screening: No symptoms or risk factors identified. Fall Risk Fall in past 12 months (25 points). No secondary diagnosis (0 pts). No IV (0 pts). Ambulatory Aid- None/Bed Rest/Nurse Assist (0 pts). Gait- Normal/Bed Rest/Wheelchair (0 pts) Mental Status- Oriented to own ability (0 pts). Total Hurtado Fall Scale indicates Low Risk Score (25-44 pts). Fall prevention measures have been instituted. Side Rails Up X 2 Frequent Obs/Assesments occuring As available Patient and Family Educated on Fall Prevention Program and strategies. Assessment: 10:04 Reassessment: No changes from previously documented assessment. sv 10:50 Reassessment: Patient appears in no apparent distress at this time. No changes from sv previously documented assessment. Patient and/or family updated on plan of care and expected duration. Pain level reassessed. Patient is alert, oriented x 3, equal unlabored respirations, skin warm/dry/pink. 11:00 Reassessment: lab at bedside for lab draw. sg 11:27 Reassessment: Patient appears in no apparent distress at this time. at bedside sg updating pt on results, care at home and follow up care. pt stated understanding, but reports "having had memory problems". pt dc instructions will be provided and discussed with family once they arrive. pt stated understanding. 11:29 Reassessment: Patient appears in no apparent distress at this time. Patient and/or sv family updated on plan of care and expected duration. Pain level reassessed. Patient is alert, oriented x 3, equal unlabored respirations, skin warm/dry/pink. Patient states symptoms have improved. 12:48 Reassessment: Patient appears in no apparent distress at this time. Patient and/or sg family updated on plan of care and expected duration. Pain level reassessed. pt attempting to reach her daughter at this time for transport to home, awaiting transportation Patient states symptoms have improved. Vital Signs: 09:58 BP 136 / 80; Pulse 90; Resp 18; Temp 98.2; Pulse Ox 98% ; sv 10:56 BP 143 / 58; Pulse 91; Resp 18; Pulse Ox 99% ; sv ED Course: 09:56 Patient arrived in ED. sg 09:56 Davy Jordan MD is Attending Physician. rn 09:56 Loree Gale MD is Private Physician. sv 09:57 Triage completed. sv 09:59 ED physician to see patient. sv 09:59 Arm band placed on right wrist. sv 09:59 Patient has correct armband on for positive identification. Bed in low position. Side sv rails up X2. Pulse ox on. NIBP on. 10:01 Mariposa Luu RN is Primary Nurse. sv 10:15 Inserted saline lock: 22 gauge in left forearm, using aseptic technique. ,using aseptic sv technique. diffusics, done by Lazaro ARELLANO. 10:22 Awaiting for x-ray. sv 10:30 labs unable to obtain after two attempts, lab contacted to help obtain sample,awaiting sg phlebotomy at this time. 10:45 XRAY Shoulder RIGHT 2 view In Process Unspecified. EDMS 10:45 XRAY Chest (1 view) In Process Unspecified. EDMS 10:45 X-ray completed. Portable x-ray completed in exam room. Patient tolerated procedure la2 well. 12:23 Awaiting transportation. sg 12:25 Sling applied to right arm. sg Administered Medications: 10:21 Drug: Motrin 600 mg Route: PO; sv 11:28 Follow up: Response: No adverse reaction sv 10:21 Drug: Demerol - Meperidine 12.5 mg Route: IVP; Site: left forearm; sv 10:45 Follow up: Response: No adverse reaction; No change in condition sv 10:50 Drug: Demerol - Meperidine 12.5 mg Route: IVP; Site: left forearm; sv 11:28 Follow up: Response: No adverse reaction sv Outcome: 11:52 Discharge ordered by . rn 13:11 Patient left the ED. hb Signatures: Dispatcher [employer] EDMS Mariposa Luu RN RN sv Gay, Steven, RN RN sg Nieto, Roman, MD MD rn Baxter, Heather, RN RN hb Ardoin, Leslie la2
--- NOTE | 2018-02-07 13:03 | EKG ---
Test Date: 2018-02-07 Test Time: 10:09:11 Instrument Adjuster: SHAHAB MEASUREMENT RESULTS: Intervals: Rate: 89 WV: 156 QRSD: 78 QT: 354 QTc: 430 [place]: P: 91 WV: 156 QRS: 74 T: 61 INTERPRETIVE STATEMENTS: Sinus rhythm with occasional premature ventricular complexes Septal infarct, age undetermined Abnormal ECG Compared to ECG 02/28/2014 07:42:17 Ventricular premature complex(es) now present Myocardial infarct finding now present Electronically Signed On 02-07-18 13:03:00 CDT by Jere Wilhelm
[2018-02-07 13:16] VITALS: TEMP 98.2
[2018-02-07 13:17] VITALS: BP 143/58; O2SAT 99
== END 2018-02-07 13:11 | disposition home or self-care (01) ==
LOC: ER 09:54
DX: S42.031A Displaced fracture of lateral end of right clavicle, initial encounter for closed fracture (principal); W01.0XXA Fall on same level from slipping, tripping and stumbling without subsequent striking against object, initial encounter; Y93.01 Activity, walking, marching and hiking; Y92.019 Unspecified place in single-family (private) house as the place of occurrence of the external cause; Z88.5 Allergy status to narcotic agent; Z88.0 Allergy status to penicillin; J44.9 Chronic obstructive pulmonary disease, unspecified; E78.5 Hyperlipidemia, unspecified; I10 Essential (primary) hypertension; M19.90 Unspecified osteoarthritis, unspecified site
CPT/HCPCS: 36415; 71045; 73030; 80048; 84484; 85025; 93005; J2175 ×2; 96374; 99284

== ENCOUNTER 2018-02-26 10:48 | Observation (INO) | payer OTHER ==
--- OUTSIDE RECORDS SUMMARY | 2018-02-26 10:50 | XMS REPORT ---
[...] End Status Dosage System Date Date Plavix [facility] 46316727845 75 MG Orally Active 1 tablet Once a day Pravastatin [facility] 29878950592 40 MG Orally Active 1 tablet Sodium Once a day Macrobid [facility] 07644580536 100 MG Orally Active 1 capsule every 12 hrs with food Tylenol # 3 NDC 0 300/30mg PO January 15, Jan 30, Active one tab twice a day PRN 2017 2018 PAIN Aspir-81 [facility] 97227734905 81 MG Orally Active 1 tablet Once a day isosorbide ND 26140464540 30mg orally Active 1 tablet mononitrate once daily Lisinopril [facility] 75670381594 10 MG Orally Active 1 tablet Once a day Bactrim DS [facility] 88346289515 800-160 MG Active 1 tablet Orally Twice a day Singulair [facility] 52328438029 10 MG Orally Active 1 tablet in Once a day the evening Diclofenac [facility] 94730644213 1 % Transdermal January 15, Active as directed Sodium twice a day as 2018 needed for pain Metoprolol [facility] 89532857702 75 MG Orally Active 1 tablet Tartrate Twice a day with food Ventolin HFA [facility] 55920897552 108 (90 Base) Active 2 puffs as MCG/ACT needed Inhalation every 6 hrs Breo Ellipta [facility] 71989726709 200-25 MCG/INH Active 1 puff Inhalation Once a day Results No Known Results Summary Purpose eClinicalWorks Submission
--- OUTSIDE RECORDS SUMMARY | 2018-02-26 10:50 | XMS REPORT ---
[...] End Status Dosage System Date Date Metoprolol [facility] 09810639779 75 MG Orally Active 1 tablet Tartrate Twice a day with food Plavix [facility] 99240918301 75 MG Orally Active 1 tablet Once a day Ventolin HFA [facility] 04529470079 108 (90 Base) Active 2 puffs as MCG/ACT needed Inhalation every 6 hrs Breo Ellipta [facility] 49688601971 200-25 MCG/INH Active 1 puff Inhalation Once a day Tramadol HCl [facility] 82000728219 50 MG Orally December 09November Active 1 tablet every 6 hrs 2018 22, as needed 2018 Aspir-81 [facility] 51728311003 81 MG Orally Active 1 tablet Once a day Lisinopril [facility] 31518627626 10 MG Orally Active 1 tablet Once a day Singulair [facility] 44598449155 10 MG Orally Active 1 tablet Once a day in the evening Macrobid [facility] 77393398485 100 MG Orally Active 1 capsule every 12 hrs with food Bactrim DS [facility] 22427000673 800-160 MG Active 1 tablet Orally Twice a day Pravastatin [facility] 34314330862 40 MG Orally Active 1 tablet Sodium Once a day isosorbide [facility] 82119400284 30mg orally once Active 1 tablet mononitrate daily Results No Known Results Summary Purpose eClinicalWorks Submission
[2018-02-26 11:11] LABS: Absolute Lymphocytes (CBC) 1.1 K/uL (0.7-4.9); Absolute Monocytes 0.4 K/uL (0.1-1.3); Absolute Neutrophil 9.4 K/uL (1.8-8.0); Basophils % 0.7 % (0-1.3); Eosinophils % 2.4 % (0-4.4); Hematocrit 30.2 % (36.0-45.0); Lymphocytes % 9.7 % (15.3-44.8); MCH 35.6 pg (27.0-35.0); MCV 102.7 fL (80-100); MPV 10.5 fL (7.6-11.3); Monocytes % 3.9 % (3.3-12.3); RBC Red Blood Cell Count 2.94 M/uL (3.86-4.86)
[2018-02-26 11:29] LABS: Albumin 3.4 g/dL (3.4-5.0); Bilirubin Direct 0.3 mg/dL (0-0.2); Bilirubin Total 0.9 mg/dL (0.2-1.0); Potassium 3.9 mmol/L (3.5-5.1); Protein, Total 7.1 g/dL (6.4-8.2)
--- NOTE | 2018-02-26 13:19 | RAD REPORT ---
EXAM DESCRIPTION: CT - Head Brain Wo Cont - 02/26/2018 1:08 pm CLINICAL HISTORY: SYNCOPE Drowsiness COMPARISON: Facial Bones W/ Mpr dated 11/20/2017 TECHNIQUE: All CT scans are performed using dose optimization technique as appropriate and may inclu de automated exposure control or mA/KV adjustment according to patient size. FINDINGS: No intracranial hemorrhage, hydrocephalus or extra-axial fluid collection.Advanced general ized brain atrophy is present with advanced periventricular and deep white matter chronic microvascul ar ischemic changes.No areas of brain edema or evidence of midline shift. The paranasal sinuses and mastoids are clear. The calvarium is intact. IMPRESSION: No acute intracranial abnormality.
--- NOTE | 2018-02-26 13:29 | RAD REPORT ---
EXAM DESCRIPTION: CTAbdomen Pelvis W Contrast - 02/26/2018 1:12 pm CLINICAL HISTORY: Abdominal pain. vomiting, diarrhea COMPARISON: CT ABD PELVIS W CONTRAST dated 11/05/2012; Stone Protocol dated 11/30/2017 TECHNIQUE: Biphasic CT imaging of the abdomen and pelvis was performed with 100 ml non-ionic IV cont rast. All CT scans are performed using dose optimization technique as appropriate and may include automated exposure control or mA/KV adjustment according to patient size. FINDINGS: The lung bases are clear.Small hiatal hernia is seen. Mild fatty liver is noted. No focal mass or biliary dilatation. The spleen, pancreas, adrenal glands are normal. Right kidney shows no mass or hydronephrosis. Left kidney contains a 2.7 cm cyst. No left sided mass or hydronephrosis. No bowel obstruction, free air, free fluid or abscess. Moderate thickening of the descending colon an d the sigmoid colon is seen most compatible with colitis. No pneumatosis is seen. Small diverticula a re present in the sigmoid colon. The appendix is not identified as a discrete structure, however, no secondary findings of appendicitis are identified. No evidence of significant lymphadenopathy. Lumbar degenerative changes are present. IMPRESSION: [id number] left-sided colitis pattern is seen. Findings appear similar in severity compared to the most recent comparative CT. No pneumatosis coli is present. Sigmoid diverticulosis is present without diverticulitis. Small hiatal hernia. Significant aortic atherosclerosis.
[2018-02-26] MEDS ORDERED: HYDROCODONE/APAP 5/325 MG TAB ONE (13:31)
[2018-02-26] MEDS ORDERED: IBUPROFEN 200 MG TAB PO ONE (13:35)
--- NOTE | 2018-02-26 13:52 | ER ---
Nurse's Notes [facility] Name: Nanette Quiros Age: 82 yrs Sex: Female : 1935 Arrival Date: 02/26/2018 Time: 10:51 Bed 7 Private MD: Diagnosis: Dehydration;Colitis;Syncope and collapse Presentation: 02/26 10:43 Presenting complaint: EMS states: originally called out for a lift assist after pt fell sv in the bathroom. They went to help her up and she had to use the bathroom again, then the pt had a syncopal episode and vomited x2. c/o diarrhea and vomiting x 2 days. BP 91/47 after 400 mls of fluid BP 119/88, 92% RA, O2 \\T\\ 2L per NC placed O2 sat 99%. 20 G R AC, Zofran 4 mg IVP given. Transition of care: patient was not received from another setting of care. 10:44 Method Of Arrival: EMS: [facility] sv 10:44 Onset of symptoms was February 26, 2018. Risk Assessment: Do you want to hurt yourself or sv someone else? Patient reports no desire to harm self or others. Initial Sepsis Screen: Does the patient meet any 2 criteria? No. Patient's initial sepsis screen is negative. Does the patient have a suspected source of infection? No. Patient's initial sepsis screen is negative. Care prior to arrival: Medication(s) given: Normal saline infusion, zofran 4 mg, IV initiated. 20 GA, in the right antecubital area, Oxygen administered. via nasal cannula. 10:44 Acuity: BAO 2 sv Triage Assessment: 10:50 General: Appears in no apparent distress. uncomfortable, slender, Behavior is calm, sv cooperative, appropriate for age. Pain: Denies pain. EENT: No signs and/or symptoms were reported regarding the EENT system. Neuro: Level of Consciousness is awake, alert, obeys commands, Oriented to person, place, time, situation, Moves all extremities. Speech is normal. Cardiovascular: Rhythm is sinus rhythm. Respiratory: Airway is patent Respiratory effort is even, unlabored, Respiratory pattern is regular, symmetrical. GI: Abdomen is flat, Stools are reported to be diarrhea. Reports constipation, diarrhea, vomiting. Derm: Skin is pale. Historical: - Allergies: 11:09 Codeine; sv 11:09 PENICILLINS; sv - PMHx: 11:09 "memory problems"; Asthma; COPD; Hyperlipidemia; Hypertension; Myocardial infarction; sv - PSHx: 11:09 CABG; Heart stents; sv - Immunization history:: Adult Immunizations up to date. - Social history:: Smoking status: Patient/guardian denies using tobacco. - Ebola Screening: : No symptoms or risks identified at this time. - Family history:: not pertinent. - Hospitalizations: : No recent hospitalization is reported. Screenin:10 Abuse screen: Denies threats or abuse. Denies injuries from another. Nutritional sv screening: No deficits noted. Tuberculosis screening: No symptoms or risk factors identified. Fall Risk None identified. Assessment: 10:55 Reassessment: Pt cleaned of bowel incontinence. Bed bath given and clean gown and sv sheets placed. 11:12 Reassessment: Patient appears in no apparent distress at this time. No changes from sv previously documented assessment. See triage assessment. 13:00 Reassessment: Pt cleaned of bowel incontinence and placed in a clean diaper. Pt then sv stated she was having another BM. Pt cleaned a second time of bowel incontinence and placed in a clean diaper. Stool sample sent, pt had diarrhea both times. 13:38 Reassessment: Sister Alexandria [phone], sister Hailee [phone] home. sv 14:45 Reassessment: Patient appears in no apparent distress at this time. Patient and/or sv family updated on plan of care and expected duration. Pain level reassessed. Patient is alert, oriented x 3, equal unlabored respirations, skin warm/dry/pink. c/o left sided headache, informed Dr Jrodan. Pt is requesting pain medication. 15:20 Reassessment: Patient appears in no apparent distress at this time. Patient and/or sv family updated on plan of care and expected duration. Pain level reassessed. Patient is alert, oriented x 3, equal unlabored respirations, skin warm/dry/pink. Vital Signs: 11:00 BP 105 / 85; Pulse 92; Resp 18; Pulse Ox 99% on 2 lpm NC; Pain 0/10; sv 11:00 Temp 98.7; sv 11:30 BP 107 / 82; Pulse 83; Resp 15; Pulse Ox 100% on R/A; hb 12:10 BP 105 / 50; Pulse 81; Resp 19; Pulse Ox 97% on 2 lpm NC; sv 13:07 BP 101 / 38; Pulse 80; Resp 18; Pulse Ox 99% on 2 lpm NC; sv 14:04 BP 120 / 92; Pulse 81; Resp 16; Pulse Ox 95% on 2 lpm NC; sv 15:04 BP 117 / 56; Pulse 84; Resp 16; Pulse Ox 95% on 2 lpm NC; sv ED Course: 10:43 Maintain EMS IV. Dressing intact. Good blood return noted. Site clean \\T\\ dry. Gauge \\T\\ sv site: 20G R AC. 10:50 Initial lab(s) drawn, by me, sent to lab. sv 10:51 Patient arrived in ED. rn 10:51 Davy Jordan MD is Attending Physician. rn 11:04 Mariposa Luu, ADAN is Primary Nurse. sv 11:08 Triage completed. sv 11:10 Arm band placed on right wrist. sv 11:10 Patient has correct armband on for positive identification. Placed in gown. Bed in low sv position. Call light in reach. Side rails up X2. apprenticeship consultant on. Pulse ox on. NIBP on. Door closed. Warm blanket given. Head of bed elevated. 11:14 EKG done, by release and technical records clerk. reviewed by Davy Jordan MD. at1 11:18 Occult Blood--Ancillary Sent. hb 13:02 CT completed. Patient tolerated procedure well. Patient moved to CT via stretcher. sj Patient moved back from CT. 13:[address] via stretcher. sv 13:08 CT Head Brain wo Cont In Process Unspecified. EDMS 13:12 CT Abd/Pelvis - W/Contrast In Process Unspecified. EDMS 13:51 Xuan Aguila MD is Hospitalizing Provider. rn 15:08 No provider procedures requiring assistance completed. Patient admitted, IV remains in sv place. intact. Administered Medications: 11:05 Drug: NS 0.9% 500 ml Route: IV; Rate: bolus; Site: right antecubital; sv 11:45 Follow up: Response: No adverse reaction; IV Status: Completed infusion; IV Intake: sv 500ml 13:00 Drug: NS 0.9% 1000 ml Route: IV; Rate: 75 ml/hr; Site: right antecubital; sv 15:22 Follow up: Response: No adverse reaction; IV Status: Infusion continued upon admission sv 13:36 Drug: Motrin 400 mg Route: PO; sv 14:03 Follow up: Response: No adverse reaction sv 14:30 Drug: LevaQUIN 500 mg Volume: 100 ml; Route: IVPB; Infused Over: 60 mins; Site: right sv antecubital; 15:23 Follow up: Response: No adverse reaction; IV Status: Completed infusion sv 14:30 Drug: Flagyl 500 mg Volume: 100 ml; Route: IVPB; Rate: 200 ml/hr; Infused Over: 30 sv mins; Site: right antecubital; 15:21 Follow up: Response: No adverse reaction; IV Status: Completed infusion; IV Intake: sv 100ml Point of Care Testing: Guaiac: 11:00 Stool Guaiac: Negative; Stool Hemoccult Control: Pass; sv Intake: 11:45 IV: 500ml; Total: 500ml. sv 15:21 IV: 100ml; Total: 600ml. sv Outcome: 13:52 Decision to Hospitalize by Provider. rn 15:24 Admitted to Tele accompanied by tech, via stretcher, room 219, with oxygen, with chart, sv Report called to Susi ARELLANO 15:24 Condition: stable 15:24 Instructed on the need for admit. 15:36 Patient left the ED. hb Signatures: Dispatcher [employer] EDMariposa Messina RN RN sv Jones, Susan sj Nieto, Roman, MD MD rn Gonzales, Amanda, medical billing specialist EKG Tat1 Florecita Oconnell RN RN hb Corrections: (The following items were deleted from the chart) 13:06 13:00 Reassessment: Pt cleaned of bowel incontinence and placed in a clean diaper. Pt sv then stated she was having another BM. Pt cleaned a second time of bowel incontinence and placed in a clean diaper. sv 13:07 13:00 Reassessment: Pt cleaned of bowel incontinence and placed in a clean diaper. Pt sv then stated she was having another BM. Pt cleaned a second time of bowel incontinence and placed in a clean diaper. Stool sample sent. sv 15:08 15:04 Pulse 84bpm; Resp 16bpm; Pulse Ox 95% 2 lpm Nasal Cannula; sv sv
--- NOTE | 2018-02-26 13:52 | EDPHYS ---
Physician Documentation [facility] Name: Nanette Quiros Age: 82 yrs Sex: Female : 1935 Arrival Date: 02/26/2018 Time: 10:51 Bed 7 Private MD: ED Physician Davy Jordan HPI: 02/26 12:29 This 82 yrs old Female presents to ER via EMS with complaints of Syncope, rn Vomiting/Diarrhea. 12:29 The patient has experienced syncope. Onset: The symptoms/episode began/occurred just rn prior to arrival. Duration: This was a single episode. Associated injury: The patient did not suffer any apparent associated injury. Associated signs and symptoms: Pertinent positives: abdominal pain, diarrhea, dizziness, lightheadedness, vomiting, weakness. It is unknown whether or not the patient has had similar symptoms in the past. The patient has not recently seen a physician. Patient and ems states nausea/vomiting/diarrhea, + abd cramping, fell in bathroom today, called for lift assist because of weakness, upon EMS arrival, had large amount of diarrhea as well as syncopal episode so transported patient here. Initially hypotensive but improved with small amount of fluids. No recent abx. . Historical: - Allergies: 11:09 Codeine; sv 11:09 PENICILLINS; sv - PMHx: 11:09 "memory problems"; Asthma; COPD; Hyperlipidemia; Hypertension; Myocardial infarction; sv - PSHx: 11:09 CABG; Heart stents; sv - Immunization history:: Adult Immunizations up to date. - Social history:: Smoking status: Patient/guardian denies using tobacco. - Ebola Screening: : No symptoms or risks identified at this time. - Family history:: not pertinent. - Hospitalizations: : No recent hospitalization is reported. ROS: 12:29 Constitutional: Negative for fever, chills, and weight loss, Eyes: Negative for injury, rn pain, redness, and discharge, Neck: Negative for injury, pain, and swelling, Cardiovascular: Negative for chest pain, palpitations, and edema, Respiratory: Negative for shortness of breath, cough, wheezing, and pleuritic chest pain, Abdomen/GI: Negative for constipation MS/Extremity: Negative for injury and deformity, Skin: Negative for injury, rash, and discoloration, Neuro: + generalized weakness and syncope Exam: 12:29 Constitutional: Thin female, awake and alert, no acute distress Head/Face: rn Normocephalic, atraumatic. Eyes: Pupils equal round and reactive to light, extra-ocular motions intact. Lids and lashes normal. Conjunctiva and sclera are non-icteric and not injected. Cornea within normal limits. Periorbital areas with no swelling, redness, or edema. ENT: dry MM Cardiovascular: Regular rate and rhythm, no murmur Respiratory: Lungs have equal breath sounds bilaterally, clear to auscultation. No increased work of breathing, no retractions or nasal flaring. Abdomen/GI: soft, non-tender, no masses MS/ Extremity: Pulses equal, no cyanosis. Neurovascular intact. Full, normal range of motion. Equal circumference. Neuro: Awake and alert, GCS 15, oriented to person, place, and situation. Cranial nerves II-XII grossly intact. Motor strength 5/5 in all extremities. Sensory grossly intact. Vital Signs: 11:00 BP 105 / 85; Pulse 92; Resp 18; Pulse Ox 99% on 2 lpm NC; Pain 0/10; sv 11:00 Temp 98.7; sv 11:30 BP 107 / 82; Pulse 83; Resp 15; Pulse Ox 100% on R/A; hb 12:10 BP 105 / 50; Pulse 81; Resp 19; Pulse Ox 97% on 2 lpm NC; sv 13:07 BP 101 / 38; Pulse 80; Resp 18; Pulse Ox 99% on 2 lpm NC; sv 14:04 BP 120 / 92; Pulse 81; Resp 16; Pulse Ox 95% on 2 lpm NC; sv 15:04 BP 117 / 56; Pulse 84; Resp 16; Pulse Ox 95% on 2 lpm NC; sv MDM: 10:51 Patient medically screened. rn 13:50 Differential Diagnosis: cardiac arrhythmia, GI bleed, idiopathic syncope, vasovagal rn episode, dehydration, colitis. Data reviewed: vital signs, nurses notes, lab test result(s), EKG, radiologic studies, CT scan, and as a result, I will admit patient. Counseling: I had a detailed discussion with the patient and/or guardian regarding: the historical points, exam findings, and any diagnostic results supporting the discharge/admit diagnosis, lab results, radiology results, the need for further work-up and treatment in the hospital. Response to treatment: the patient's symptoms have mildly improved after treatment, and as a result, I will admit patient. Admission orders: after a detailed discussion of the patient's condition and case, the admit orders are written by me. ED course: Pt with hypotension at presentation, improved with some fluids but continues to have non-bloody diarrhea and weakness, will admit for IV abx and hydration.. 02/26 10:53 Order name: Basic Metabolic Panel; Complete Time: 12:18 rn 02/26 10:53 Order name: CBC with Diff; Complete Time: 12:18 rn 02/26 10:53 Order name: Hepatic Function; Complete Time: 12:18 rn 02/26 10:53 Order name: Lipase; Complete Time: 12:18 rn 02/26 10:53 Order name: Urine Microscopic Only rn 02/26 11:18 Order name: Occult Blood--Ancillary 02/26 10:53 Order name: CT Head Brain wo Cont; Complete Time: 13:23 rn 02/26 10:53 Order name: CT Abd/Pelvis - W/Contrast; Complete Time: 13:30 rn 02/26 12:48 Order name: CDIFF rn 02/26 12:48 Order name: Stool Culture rn 02/26 10:53 Order name: IV Saline Lock; Complete Time: 11:05 rn 02/26 10:53 Order name: Labs collected and sent; Complete Time: 11:05 rn 02/26 10:53 Order name: EKG; Complete Time: 10:53 rn 02/26 10:53 Order name: EKG - Nurse/Tech; Complete Time: 11:18 rn Administered Medications: 11:05 Drug: NS 0.9% 500 ml Route: IV; Rate: bolus; Site: right antecubital; sv 11:45 Follow up: Response: No adverse reaction; IV Status: Completed infusion; IV Intake: sv 500ml 13:00 Drug: NS 0.9% 1000 ml Route: IV; Rate: 75 ml/hr; Site: right antecubital; sv 15:22 Follow up: Response: No adverse reaction; IV Status: Infusion continued upon admission sv 13:36 Drug: Motrin 400 mg Route: PO; sv 14:03 Follow up: Response: No adverse reaction sv 14:30 Drug: LevaQUIN 500 mg Volume: 100 ml; Route: IVPB; Infused Over: 60 mins; Site: right sv antecubital; 15:23 Follow up: Response: No adverse reaction; IV Status: Completed infusion sv 14:30 Drug: Flagyl 500 mg Volume: 100 ml; Route: IVPB; Rate: 200 ml/hr; Infused Over: 30 sv mins; Site: right antecubital; 15:21 Follow up: Response: No adverse reaction; IV Status: Completed infusion; IV Intake: sv 100ml Point of Care Testing: Guaiac: 11:00 Stool Guaiac: Negative; Stool Hemoccult Control: Pass; sv Disposition: 02/26/18 13:52 Hospitalization ordered by Xuan Aguila for Inpatient Admission. Preliminary diagnosis are Dehydration, Colitis, Syncope and collapse. - Bed requested for Telemetry/MedSurg (Inpatient). - Status is Inpatient Admission. hb - Condition is Stable. - Problem is new. - Symptoms have improved. UTI on Admission? No Signatures: Dispatcher [employer] EDMS Corrie Wallis RN RN kl Verde, Stephanie, RN RN sv Nieto, Roman, MD MD rn Baxter, Heather, RN RN hb Corrections: (The following items were deleted from the chart) 15:07 13:52 Hospitalization Ordered by Xuan Aguila MD for Inpatient Admission. Preliminary kl diagnosis is Dehydration; Colitis; Syncope and collapse. Bed requested for Telemetry/MedSurg (Inpatient). Status is Inpatient Admission. Condition is Stable. Problem is new. Symptoms have improved. UTI on Admission? No. rn 15:36 15:07 02/26/2018 13:52 Hospitalization Ordered by Xuan Aguila MD for Inpatient hb Admission. Preliminary diagnosis is Dehydration; Colitis; Syncope and collapse. Bed requested for Telemetry/MedSurg (Inpatient). Status is Inpatient Admission. Condition is Stable. Problem is new. Symptoms have improved. UTI on Admission? No. kl
[2018-02-26] MEDS ORDERED: Levofloxacin500mg IV 500 MG/100 ML BAG IV ONE (14:12)
[2018-02-26] MEDS ORDERED: METRONIDAZOLE 500mg IVPB 500 MG/100 ML BAG IV ONE (14:12)
[2018-02-26] MEDS ORDERED: ACETAMINOPHEN 500 MG TAB PO PRN (15:48)
[2018-02-26] MEDS ORDERED: ONDANSETRON 4 MG/2 ML VIAL IV PRN (15:48)
--- NOTE | 2018-02-26 16:00 | P.HP ---
Certification for Inpatient Patient admitted to: Observation With expected LOS: <2 Midnights Patient will require the following post-hospital care: None Practitioner: I am a practitioner with admitting privileges, knowledge of patient current condition, hospital course, and medical plan of care. Services: Services provided to patient in accordance with Admission requirements found in Title 42 Section 412.3 of the Code of Federal Regulations Patient History Date of Service: 02/26/18 Reason for admission: Syncopal Episode History of Present Illness: 82-year-old female with history of COPD, CAD with previous CABG, hypertension, GERD who presented to the ED complaining of syncopal episode and diarrhea for past couple of days. Allergies codeine [Codeine] Allergy (Verified 11/22/17 21:53) Itching Penicillins Allergy (Verified 11/22/17 21:53) Hives - Past Medical/Surgical History Has patient received pneumonia vaccine in the past: Yes Diabetic: No -: COPD -: CAD, previous CABG -: Hypertension -: Cataracts -: Former tobacco use -: GERD -: Recent fall -: [place] -: Appendectomy -: Bilateral Cataracts -: Tubal Ligation -: Triple Bypass -: Neuroma removed julisa feet -: Skin cancer removed from face -: Hysterectomy Psychosocial/ Personal History: Patient lives with her daughter. She has 6 children. - Family History Sister -: Diabetes - Social History Alcohol use: Yes CD- Drugs: No Caffeine use: Yes Review of Systems 10-point ROS is otherwise unremarkable Physical Examination - Vital Signs Temperature: 98.7 F Blood Pressure: 117/56 Pulse: 84 Respirations: 16 - Physical Exam General: Alert, Oriented x3, Mild distress HEENT: Atraumatic, PERRLA, Mucous membr. moist/pink, EOMI, Sclerae nonicteric Neck: Supple, 2+ carotid pulse no bruit, No LAD, Without JVD or thyroid abnormality Respiratory: Clear to auscultation bilaterally, Normal air movement Cardiovascular: Regular rate/rhythm, Normal S1 S2 Gastrointestinal: Normal bowel sounds, No tenderness Musculoskeletal: No tenderness Integumentary: No rashes Neurological: Normal gait, Normal speech, Normal strength at 5/5 x4 extr, Normal tone, Normal affect Lymphatics: No axilla or inguinal lymphadenopathy - Studies Laboratory Data (last 24 hrs) 02/26/18 10:55: WBC 11.3 H, Hgb 10.5 L, Hct 30.2 L, Plt Count 202 02/26/18 10:55: Sodium 142, Potassium 3.9, BUN 21 H, Creatinine 1.20, Glucose 153 H, Total Bilirubin 0.9, AST 23, ALT 13, Alkaline Phosphatase 56, Lipase 210 Assessment and Plan - Problems (Diagnosis) (1) Syncope Current Visit: No Status: Acute Plan: Most likely secondary to dehydration secondary to colitis. -fall precautions given will consult physical therapy while here in the hospital. Qualifiers: Syncope type: vasovagal syncope Qualified Code(s): R55 - Syncope and collapse (2) Colitis Onset Date: 12/01/17 Current Visit: No Status: Acute Plan: Left-sided colitis seen on the CT scan of the abdomen. -patient with history of diarrhea and nausea and vomited -will start ciprofloxacin and Flagyl at this time. -stool culture and C. diff antigen sent (3) Dehydration Current Visit: No Status: Acute Plan: Dehydration most likely secondary to diarrhea nausea vomiting -IV fluids at this time (4) CAD (coronary artery disease) Onset Date: 12/01/17 Current Visit: No Status: Chronic Plan: The will restart home medication Qualifiers: Coronary Disease-Associated Artery/Lesion type: [place] artery [place] vs. transplanted heart: [place] heart Associated angina: without angina Qualified Code(s): I25.10 - Atherosclerotic heart disease of [place] coronary artery without angina pectoris (5) COPD (chronic obstructive pulmonary disease) Onset Date: 12/01/17 Current Visit: No Status: Chronic Plan: Will restart home inhalers Qualifiers: COPD type: unspecified COPD Qualified Code(s): J44.9 - Chronic obstructive pulmonary disease, unspecified (6) DJD of shoulder Onset Date: 12/01/17 Current Visit: No Status: Chronic Qualifiers: Osteoarthritis type: primary Laterality: unspecified laterality Qualified Code(s): M19.019 - Primary osteoarthritis, unspecified shoulder (7) HTN (hypertension) Onset Date: 12/01/17 Current Visit: No Status: Chronic Plan: Will restart home medication Qualifiers: Hypertension type: essential hypertension (8) Hyperlipidemia Current Visit: No Status: Chronic Plan: Will restart home medication Qualifiers: Hyperlipidemia type: mixed hyperlipidemia Qualified Code(s): E78.2 - Mixed hyperlipidemia - Plan Patient will be admitted to [facility] for observation for syncopal episode most likely secondary to dehydration secondary to colitis. Patient will be started on IV antibiotics. Discharge Plan: Home Plan to discharge in: 48 Hours - Advance Directives Does patient have a Living Will: No Does patient have a Durable POA for Healthcare: No - Code Status/Comfort Care Code Status Assessed: Yes Critical Care: No
--- NOTE | 2018-02-26 16:28 | EKG ---
Test Date: 2018-02-26 Test Time: 10:59:49 Learning Support Teacher: SOHAIL MEASUREMENT RESULTS: Intervals: Rate: 88 CA: 166 QRSD: 80 QT: 368 QTc: 445 [place]: P: 71 CA: 166 QRS: 53 T: 25 INTERPRETIVE STATEMENTS: Normal sinus rhythm Septal infarct, age undetermined Abnormal ECG Compared to ECG 02/07/2018 10:09:11 Ventricular premature complex(es) no longer present Myocardial infarct finding still present Electronically Signed On 02-26-18 16:26:05 CDT by Amos Degroot
[2018-02-26 16:29] VITALS: BMI 24.4
[2018-02-26] MEDS: NA CHLORIDE 0.9% 1,000 ML IV SCH (16:59)
[2018-02-26] MEDS ORDERED: METRONIDAZOLE 500mg IVPB 500 MG/100 ML BAG IV SCH (17:00)
[2018-02-26] MEDS: CIPROFLOXACIN 400mg IV 400 MG/200 ML BAG IV SCH (22:49)
[2018-02-27] MEDS: METRONIDAZOLE 500mg IVPB 500 MG/100 ML BAG IV SCH ×2 (00:30→08:38)
[2018-02-27] MEDS: NA CHLORIDE 0.9% 1,000 ML IV SCH ×2 (00:31→11:48)
[2018-02-27 05:02] VITALS: O2SAT 96
[2018-02-27 05:41] LABS: Albumin 2.8 g/dL (3.4-5.0); Bilirubin Total 0.7 mg/dL (0.2-1.0); Magnesium 2.1 mg/dL (1.8-2.4); Phosphorus 3.3 mg/dL (2.5-4.9); Potassium 3.8 mmol/L (3.5-5.1); Protein, Total 5.9 g/dL (6.4-8.2)
[2018-02-27 05:50] LABS: Absolute Lymphocytes (CBC) 1.2 K/uL (0.7-4.9); Absolute Monocytes 0.5 K/uL (0.1-1.3); Absolute Neutrophil 3.1 K/uL (1.8-8.0); Eosinophils % 6.3 % (0-4.4); Hematocrit 24.4 % (36.0-45.0); Lymphocytes % 22.8 % (15.3-44.8); MCH 35.8 pg (27.0-35.0); Monocytes % 10.4 % (3.3-12.3)
[2018-02-27] MEDS ORDERED: POTASSIUM 25 MEQ EFFERV TAB PO ONE (06:32)
[2018-02-27] MEDS: CIPROFLOXACIN 400mg IV 400 MG/200 ML BAG IV SCH (08:37)
[2018-02-27 10:27] VITALS: TEMP 98.1
[2018-02-27] MEDS ORDERED: ACETAMINOPHEN 500 MG TAB PO PRN (12:15)
[2018-02-27 12:58] VITALS: BP 132/59
[2018-02-27] MEDS ORDERED: metroNIDAZOLE 500 MG TABLET PO ONE (15:45)
--- NOTE | 2018-02-27 16:39 | P.SSS ---
Patient History Date of Service: 02/27/18 Reason for admission: Syncopal Episode History of Present Illness: 82-year-old female with history of COPD, CAD with previous CABG, hypertension, GERD who presented to the ED complaining of syncopal episode and diarrhea for past couple of days. Allergies codeine [Codeine] Allergy (Verified 11/22/17 21:53) Itching Penicillins Allergy (Verified 11/22/17 21:53) Hives Home Medications: Acetaminophen [Acetaminophen Extra Strength] 500 mg PO Q6HP PRN 02/26/18 Clopidogrel Bisulfate [Plavix*] 75 mg PO DAILY 02/26/18 Cyanocobalamin (Vitamin B-12) [B-12] 500 mcg PO DAILY 02/26/18 Ferrous Sulfate 65 mg PO DAILY 02/26/18 Isosorbide Mononitrate [Isosorbide Mononitrate ER] 30 mg PO DAILY 02/26/18 Montelukast Sodium [Singulair] 10 mg PO DAILY AFTER SUPPER 02/26/18 Ciprofloxacin HCl [Cipro 500 MG Tablet] 500 mg PO DAILY #10 tab 02/27/18 metroNIDAZOLE [Flagyl] 500 mg PO Q8H #30 tablet 02/27/18 - Past Medical/Surgical History Has patient received pneumonia vaccine in the past: Yes Diabetic: No -: COPD -: CAD, previous CABG -: Hypertension -: Cataracts -: Former tobacco use -: GERD -: Recent fall -: [place] -: Appendectomy -: Bilateral Cataracts -: Tubal Ligation -: Triple Bypass -: Neuroma removed julisa feet -: Skin cancer removed from face -: Hysterectomy Psychosocial/ Personal History: Patient lives with her daughter. She has 6 children. - Family History Sister -: Diabetes - Social History Smoking Status: Never smoker Alcohol use: No CD- Drugs: No Caffeine use: Yes Place of Residence: Home Review of Systems 10-point ROS is otherwise unremarkable Physical Examination - Vital Signs Temperature: 98.1 F Blood Pressure: 132/59 Pulse: 76 Respirations: 16 Pulse Ox (%): 92 - Physical Exam General: Alert, In no apparent distress HEENT: Atraumatic, PERRLA, Mucous membr. moist/pink, EOMI, Sclerae nonicteric Neck: Supple, 2+ carotid pulse no bruit, No LAD, Without JVD or thyroid abnormality Respiratory: Clear to auscultation bilaterally, Normal air movement Cardiovascular: Regular rate/rhythm, Normal S1 S2 Gastrointestinal: Normal bowel sounds, No tenderness Musculoskeletal: No tenderness Integumentary: No rashes Neurological: Normal gait, Normal speech, Normal strength at 5/5 x4 extr, Normal tone, Normal affect Lymphatics: No axilla or inguinal lymphadenopathy - Studies Microbiology Data (last 24 hrs): 02/26/18 12:52 Stool Clostridium difficile Toxin Assay - Final - Diagnosis (Problem(s)) (1) Syncope Onset Date: 02/27/18 Status: Acute Plan: Most likely secondary to dehydration secondary to colitis. -fall precautions given will consult physical therapy for HH Qualifiers: Syncope type: vasovagal syncope Qualified Code(s): R55 - Syncope and collapse (2) Colitis Onset Date: 02/27/18 Status: Resolved (3) Dehydration Onset Date: 02/27/18 Status: Resolved (4) CAD (coronary artery disease) Onset Date: 02/27/18 Status: Chronic Plan: Qualifiers: Coronary Disease-Associated Artery/Lesion type: [place] artery [place] vs. transplanted heart: [place] heart Associated angina: without angina Qualified Code(s): I25.10 - Atherosclerotic heart disease of [place] coronary artery without angina pectoris (5) COPD (chronic obstructive pulmonary disease) Onset Date: 02/27/18 Status: Chronic Plan: Qualifiers: COPD type: unspecified COPD Qualified Code(s): J44.9 - Chronic obstructive pulmonary disease, unspecified (6) DJD of shoulder Onset Date: 02/27/18 Status: Chronic Qualifiers: Osteoarthritis type: primary Laterality: unspecified laterality Qualified Code(s): M19.019 - Primary osteoarthritis, unspecified shoulder (7) HTN (hypertension) Onset Date: 02/27/18 Status: Chronic Plan: Qualifiers: Hypertension type: essential hypertension (8) Hyperlipidemia Onset Date: 02/27/18 Status: Chronic Plan: Qualifiers: Hyperlipidemia type: mixed hyperlipidemia Qualified Code(s): E78.2 - Mixed hyperlipidemia Treatment Summary: Overall during the hospital stay patient remained stable Patient was initially admitted to the hospital for colitis, dehydration and generalized weakness along with syncopal episode. Patient's syncopal episode was most likely secondary to dehydration caused by colitis. Patient after admission here in the hospital was started on IV antibiotics had resolution of her diarrhea and had marked improvement in her symptoms. Physical therapy was consulted who walked with the patient here in the hospital and noted significant change in her weakness and stated that she did well overall. Patient next over to oral antibiotics and was advanced to a full liquid diet which she tolerated well. At that point patient was discharged home under stable condition and was asked to follow up with his primary care doctor in 1-2 days. Patient was also encouraged to take in oral fluids and bland diet for next couple of days to improve with her colitis. Patient demonstrated understanding and thus was discharged home under stable condition. - Disposition Disposition: ROUTINE DISCHARGE Condition: GOOD Patient Discharge Instructions: Please f.u with PCP in 1 week post discharge. New medication. Ciprofloxacin and flagyl for 10 days for colitis Diet: Regular Activity: Ad daniel
[2018-02-27] MEDS ORDERED: MONTELUKAST 10 MG TAB PO SCH (17:30)
[2018-02-28] MEDS ORDERED: CYANOCOBALAMIN 1,000 MCG TAB PO SCH (09:00)
[2018-02-28] MEDS ORDERED: FERROUS SULFATE 325 MG TAB PO SCH (09:00)
[2018-02-28] MEDS ORDERED: CLOPIDOGREL 75 MG TABLET PO SCH (09:00)
[2018-02-28] MEDS ORDERED: ISOSORBIDE MONO SR 30 MG TAB PO SCH (09:00)
== END 2018-02-27 16:24 | disposition home or self-care (01) ==
LOC: ER 10:48 → ERHOLD 14:22 → INTOOBSV 14:22 → 2ND 15:25
PROVIDERS: ADMIT Family Medicine; ATTEND Family Medicine
DX: R55 Syncope and collapse (principal); J44.9 Chronic obstructive pulmonary disease, unspecified; I25.10 Atherosclerotic heart disease of native coronary artery without angina pectoris; I10 Essential (primary) hypertension; K21.9 Gastro-esophageal reflux disease without esophagitis; K52.9 Noninfective gastroenteritis and colitis, unspecified; E86.0 Dehydration; M19.019 Primary osteoarthritis, unspecified shoulder; E78.5 Hyperlipidemia, unspecified; I25.2 Old myocardial infarction; Z87.891 Personal history of nicotine dependence
CPT/HCPCS: 36415; 70450; 74177; 80048; 80053; 80076; 82272; 83690; 83735; 84100; 85025 ×2; 87045; 87046; 87493; 93005; 96361; 96365; 96368; 97116; 97163; 99285; J0744 ×2; J7030 ×2; Q9967; G0378

== ENCOUNTER 2018-10-06 19:48 | Inpatient (IN) | payer OTHER ==
--- OUTSIDE RECORDS SUMMARY | 2018-10-06 19:50 | XMS REPORT ---
[...] End Status Dosage System Date Date Plavix [facility] 88813197299 75 MG Orally Active 1 tablet Once a day Pravastatin [facility] 22619333575 40 MG Orally Active 1 tablet Sodium Once a day Macrobid [facility] 30906194832 100 MG Orally Active 1 capsule every 12 hrs with food Tylenol # 3 NDC 0 300/30mg PO January 15, Jan 30, Active one tab twice a day PRN 2017 2018 PAIN Aspir-81 [facility] 15292794976 81 MG Orally Active 1 tablet Once a day isosorbide ND 58473926352 30mg orally Active 1 tablet mononitrate once daily Lisinopril [facility] 23754295568 10 MG Orally Active 1 tablet Once a day Bactrim DS [facility] 26931800132 800-160 MG Active 1 tablet Orally Twice a day Singulair [facility] 10951968703 10 MG Orally Active 1 tablet in Once a day the evening Diclofenac [facility] 23124313633 1 % Transdermal January 15, Active as directed Sodium twice a day as 2018 needed for pain Metoprolol [facility] 21296086673 75 MG Orally Active 1 tablet Tartrate Twice a day with food Ventolin HFA [facility] 50504473178 108 (90 Base) Active 2 puffs as MCG/ACT needed Inhalation every 6 hrs Breo Ellipta [facility] 98116023228 200-25 MCG/INH Active 1 puff Inhalation Once a day Results No Known Results Summary Purpose [employer] Submission
--- OUTSIDE RECORDS SUMMARY | 2018-10-06 19:50 | XMS REPORT ---
:1935 Author Organization [employer] Care Team Providers Name Role Phone Gale, Na Provider Role Unavailable Allergies, Adverse Reactions, Alerts Substance Reaction Event Type penicillin Info Not Available Drug Allergy codeine Info Not Available Drug Allergy Problems Problem Type Condition Code Onset Dates Condition Status Assessment Osteoarthritis of multiple joints, M15.9 Active unspecified osteoarthritis type Assessment Cervicalgia M54.2 Active Assessment Cervical radiculopathy due to M47.22 Active degenerative joint disease of spine Assessment Acute pain of right shoulder M25.511 Active Problem Hospital discharge follow-up Z09 Active Problem Acute pain of right shoulder M25.511 Active Problem Edema leg R60.0 Active Problem Iron deficiency anemia, unspecified D50.9 Active iron deficiency anemia type Problem Cervicalgia M54.2 Active Problem Cervical radiculopathy due to M47.22 Active degenerative joint disease of spine Problem Unsteady gait R26.81 Active Problem Memory changes R41.3 Active Problem Allergic rhinitis J30.9 Active Problem Hypertension I10 Active Problem Macrocytosis D75.89 Active Problem Stented coronary artery Z95.5 Active Problem Coronary artery disease of [place] I25.118 Active artery of [place] heart with stable angina pectoris Problem Mixed hyperlipidemia E78.2 Active Problem Diverticulosis of large intestine K57.30 Active without hemorrhage Problem 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 Active inadequate dietary iron intake Problem CHF (congestive heart failure) I50.9 Active Problem Chronic obstructive pulmonary J44.9 Active disease Problem Hyperlipidemia E78.5 Active Problem Dysuria R30.0 Active Problem Colitis K52.9 Active Problem Hypokalemia E87.6 Active Problem Acute urinary tract infection N39.0 Active Problem Hypertension, unspecified type I10 Active Medications Medication Code Code Instructions Start End Status Dosage System Date Date Tylenol # 3 NDC 0 300/30mg PO BID Feb 12, Apr 13, Active one tab PRN 2017 2017 Macrobid NDC 74913069074 100 MG Orally Active 1 capsule every 12 hrs with food isosorbide NDC 92277661982 30mg orally Active 1 tablet mononitrate once daily Ventolin HFA [facility] 85713442716 108 (90 Base) Active 2 puffs as MCG/ACT needed Inhalation every 6 hrs Diclofenac [facility] 58031418935 1 % Transdermal Active as directed Sodium twice a day as needed for pain Breo Ellipta [facility] 85008837917 200-25 MCG/INH Active 1 puff Inhalation Once a day Singulair [facility] 93494164816 10 MG Orally Active 1 tablet in Once a day the evening Plavix [facility] 02488306206 75 MG Orally Active 1 tablet Once a day Aspir-81 [facility] 58931126466 81 MG Orally Active 1 tablet Once a day Lisinopril [facility] 39579689102 10 MG Orally Active 1 tablet Once a day Bactrim DS [facility] 63032483607 800-160 MG Active 1 tablet Orally Twice a day Pravastatin [facility] 80766700930 40 MG Orally Active 1 tablet Sodium Once a day Metoprolol [facility] 12901315517 75 MG Orally Active 1 tablet Tartrate Twice a day with food Results No Known Results Summary Purpose eClinicalWorks Submission
--- OUTSIDE RECORDS SUMMARY | 2018-10-06 19:50 | XMS REPORT ---
[...] End Status Dosage System Date Date Metoprolol [facility] 08008257014 75 MG Orally Active 1 tablet Tartrate Twice a day with food Plavix [facility] 91404474840 75 MG Orally Active 1 tablet Once a day Ventolin HFA [facility] 50139568528 108 (90 Base) Active 2 puffs as MCG/ACT needed Inhalation every 6 hrs Breo Ellipta [facility] 23340946679 200-25 MCG/INH Active 1 puff Inhalation Once a day Tramadol HCl [facility] 38148885837 50 MG Orally December 09November Active 1 tablet every 6 hrs 2018 22, as needed 2018 Aspir-81 [facility] 58727639491 81 MG Orally Active 1 tablet Once a day Lisinopril [facility] 31167669148 10 MG Orally Active 1 tablet Once a day Singulair [facility] 36731101962 10 MG Orally Active 1 tablet Once a day in the evening Macrobid [facility] 65914191642 100 MG Orally Active 1 capsule every 12 hrs with food Bactrim DS [facility] 58444319046 800-160 MG Active 1 tablet Orally Twice a day Pravastatin [facility] 57983261269 40 MG Orally Active 1 tablet Sodium Once a day isosorbide [facility] 74298334683 30mg orally once Active 1 tablet mononitrate daily Results No Known Results Summary Purpose eClinicalWorks Submission
--- OUTSIDE RECORDS SUMMARY | 2018-10-06 19:50 | XMS REPORT ---
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 Active inadequate dietary iron intake Assessment Macrocytosis D75.89 Active Assessment Diverticulosis of large intestine K57.30 Active without hemorrhage Assessment Mixed hyperlipidemia E78.2 Active Assessment Memory changes R41.3 Active Assessment Allergic rhinitis J30.9 Active Assessment Coronary artery disease of [place] I25.118 Active artery of [place] heart with stable angina pectoris Assessment Hypertension I10 Active Assessment Hospital discharge follow-up Z09 Active Problem Hospital discharge follow-up Z09 Active [...] Z95.5 Active Problem Coronary artery disease of [place] I25.118 Active artery of [place] heart with stable angina pectoris Problem Mixed hyperlipidemia E78.2 Active Problem Diverticulosis of large intestine K57.30 Active without hemorrhage Problem 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 Active inadequate dietary iron intake Assessment Unsteady gait R26.81 Active Problem CHF (congestive heart failure) I50.9 Active Assessment History of fall Z91.81 Active Problem Chronic obstructive pulmonary J44.9 Active disease Problem Hyperlipidemia E78.5 Active Problem Dysuria R30.0 Active Problem Colitis K52.9 Active Problem Hypokalemia E87.6 Active Problem Acute urinary tract infection N39.0 Active Problem Hypertension, unspecified type I10 Active Medications Medication Code Code Instructions Start End Status Dosage System Date Date Montelukast [facility] 69244697868 10 MG Orally Mar 19, Active 1 tablet in Sodium Once a day 2018 the evening Tylenol # 3 ND 0 300/30mg PO BID Feb 12, Apr 13, Active one tab PRN 2017 2017 Ventolin HFA [facility] 13504101251 108 (90 Base) Active 2 puffs as MCG/ACT needed Inhalation every 6 hrs Aspir-81 [facility] 22244481596 81 MG Orally Active 1 tablet Once a day Macrobid [facility] 67601786694 100 MG Orally Active 1 capsule every 12 hrs with food Diclofenac [facility] 50778213608 1 % Transdermal Active as directed Sodium twice a day as needed for pain Bactrim DS [facility] 62671407540 800-160 MG Active 1 tablet Orally Twice a day Breo Ellipta [facility] 52135480173 200-25 MCG/INH Active 1 puff Inhalation Once a day Metoprolol [facility] 68737235987 75 MG Orally Active 1 tablet Tartrate Twice a day with food Lisinopril [facility] 07522609809 10 MG Orally Active 1 tablet Once a day Flonase [facility] 87762767115 50 MCG/ACT Mar 19, Active 2 spray in Nasally Once a 2018 each day nostril Plavix [facility] 20638348756 75 MG Orally Active 1 tablet Once a day Singulair [facility] 04058546589 10 MG Orally Active 1 tablet in Once a day the evening Pravastatin [facility] 55003411954 40 MG Orally Active 1 tablet Sodium Once a day Atorvastatin [facility] 50813677467 20 MG Orally Mar 19, Active 1 tablet Calcium Once a day 2017 isosorbide [facility] 80987720657 30mg orally Active 1 tablet mononitrate once daily Results No Known Results Summary Purpose eClinicalWorks Submission
[2018-10-06] MEDS ORDERED: NA CHLORIDE 0.9% 1,000 ML ONE (20:36)
[2018-10-06] MEDS ORDERED: ONDANSETRON 4 MG/2 ML VIAL ONE (20:36)
[2018-10-06] MEDS ORDERED: MORPHINE 2 MG/ML SYR ONE ×2 (20:36→22:14)
[2018-10-06 21:03] LABS: Absolute Lymphocytes (CBC) 1.6 K/uL (0.7-4.9); Absolute Monocytes 0.4 K/uL (0.1-1.3); Absolute Neutrophil 5.9 K/uL (1.8-8.0); Basophils % 1.1 % (0-1.3); Eosinophils % 1.5 % (0-4.4); Hematocrit 33.3 % (36.0-45.0); MPV 10.8 fL (7.6-11.3); Monocytes % 4.5 % (3.3-12.3); RBC Red Blood Cell Count 3.12 M/uL (3.86-4.86)
[2018-10-06 21:08] LABS: Protime INR 1.09
[2018-10-06 21:27] LABS: Bilirubin Direct 0.3 mg/dL (0-0.2); Bilirubin Total 1.1 mg/dL (0.2-1.0); Magnesium 2.3 mg/dL (1.8-2.4); Potassium 3.7 mmol/L (3.5-5.1); Protein, Total 7.2 g/dL (6.4-8.2); Troponin (Emerg Dept Use Only) 0.02 ng/mL (0.0-0.045)
--- NOTE | 2018-10-06 21:54 | EDPHYS ---
Physician Documentation [facility] Name: Nanette Quiros Age: 83 yrs Sex: Female : 1935 Arrival Date: 10/06/2018 Time: 20:03 Bed 25 Private MD: ED Physician Mulugeta Coronel HPI: 10/06 20:11 This 83 yrs old Female presents to ER via Unassigned with complaints of Knee mckenna Pain, Hip Pain. 20:11 The patient or guardian reports decreased range of motion, pain. that occurred at home, mckenna sustained from a fall, right leg is externally rotated, The patient is not able to ambulate. Patient is not able to bear weight. The complaints affect the right femoral area and right hip. Historical: - Allergies: 20:16 Codeine; rr5 20:16 PENICILLINS; rr5 20:16 Darvocet-N 100; rr5 - Home Meds: 20:16 Prevacid Oral [Active]; rr5 - PMHx: 20:16 "memory problems"; Asthma; COPD; Hyperlipidemia; Hypertension; Myocardial infarction; rr5 - PSHx: 20:16 3 stent; rr5 - Immunization history:: Adult Immunizations up to date, Pneumococcal vaccine is up to date, Flu vaccine is up to date. - Social history:: Smoking status: Patient uses tobacco products, smokes one pack cigarettes per day. Patient/guardian denies using alcohol, street drugs. - Family history:: not pertinent. - Ebola Screening: : Patient negative for fever greater than or equal to 101.5 degrees Fahrenheit, and additional compatible Ebola Virus Disease symptoms Patient denies exposure to infectious person Patient denies travel to an Ebola-affected area in the 21 days before illness onset. ROS: 20:11 Constitutional: Negative for fever, chills, and weight loss, Eyes: Negative for injury, mckenna pain, redness, and discharge, ENT: Negative for injury, pain, and discharge, Neck: Negative for injury, pain, and swelling, Cardiovascular: Negative for chest pain, palpitations, and edema, Respiratory: Negative for shortness of breath, cough, wheezing, and pleuritic chest pain, Abdomen/GI: Negative for abdominal pain, nausea, vomiting, diarrhea, and constipation, Back: Negative for injury and pain, : Negative for injury, bleeding, discharge, and swelling, Skin: Negative for injury, rash, and discoloration, Neuro: Negative for headache, weakness, numbness, tingling, and seizure, Psych: Negative for depression, anxiety, suicide ideation, homicidal ideation, and hallucinations, Allergy/Immunology: Negative for hives, rash, and allergies, Endocrine: Negative for neck swelling, polydipsia, polyuria, polyphagia, and marked weight changes, Hematologic/Lymphatic: Negative for swollen nodes, abnormal bleeding, and unusual bruising. 20:11 MS/extremity: Positive for injury or acute deformity, decreased range of motion, pain, tenderness, of the right leg. Exam: 20:11 Constitutional: This is a well developed, well nourished patient who is awake, alert, mckenna and in no acute distress. Head/Face: Normocephalic, atraumatic. Eyes: Pupils equal round and reactive to light, extra-ocular motions intact. Lids and lashes normal. Conjunctiva and sclera are non-icteric and not injected. Cornea within normal limits. Periorbital areas with no swelling, redness, or edema. ENT: Nares patent. No nasal discharge, no septal abnormalities noted. Tympanic membranes are normal and external auditory canals are clear. Oropharynx with no redness, swelling, or masses, exudates, or evidence of obstruction, uvula midline. Mucous membranes moist. Neck: Trachea midline, no thyromegaly or masses palpated, and no cervical lymphadenopathy. Supple, full range of motion without nuchal rigidity, or vertebral point tenderness. No Meningismus. Chest/axilla: Normal chest wall appearance and motion. Nontender with no deformity. No lesions are appreciated. Cardiovascular: Regular rate and rhythm with a normal S1 and S2. No gallops, murmurs, or rubs. Normal PMI, no JVD. No pulse deficits. Respiratory: Lungs have equal breath sounds bilaterally, clear to auscultation and percussion. No rales, rhonchi or wheezes noted. No increased work of breathing, no retractions or nasal flaring. Abdomen/GI: Soft, non-tender, with normal bowel sounds. No distension or tympany. No guarding or rebound. No evidence of tenderness throughout. Back: No spinal tenderness. No costovertebral tenderness. Full range of motion. Skin: Warm, dry with normal turgor. Normal color with no rashes, no lesions, and no evidence of cellulitis. Neuro: Awake and alert, GCS 15, oriented to person, place, time, and situation. Cranial nerves II-XII grossly intact. Motor strength 5/5 in all extremities. Sensory grossly intact. Cerebellar exam normal. Normal gait. Psych: Awake, alert, with orientation to person, place and time. Behavior, mood, and affect are within normal limits. 20:11 Musculoskeletal/extremity: Extremities: noted in the right hip, lateral aspect of right thigh, lateral aspect of right knee, right upper thigh and right knee: decreased ROM, pain, ROM: limited active range of motion due to pain, limited passive range of motion due to pain, Circulation is intact in all extremities. Sensation intact. Compartment Syndrome exam of affected extremity: is normal. DVT Exam: no swelling, negative Homans' sign noted on exam, no appreciated bluish discoloration, no erythema, no increased warmth, pain, tenderness. Vital Signs: 20:05 BP 147 / 65; Pulse 90; Resp 19; Temp 98.3; Pulse Ox 97% ; Weight 50.35 kg; Height 5 ft. rr5 5 in. (165.10 cm); Pain 0/10; 21:55 BP 102 / 83; Pulse 111; Resp 18; Pulse Ox 95% ; ea 23:30 BP 105 / 58; Pulse 89; Resp 18; Pulse Ox 98% on R/A; ea 10/07 00:30 BP 115 / 50; Pulse 90; Resp 18; Pulse Ox 96% on R/A; ea 10/06 20:05 Body Mass Index 18.47 (50.35 kg, 165.10 cm) rr5 MDM: 10/06 20:04 Patient medically screened. [facility] 20:13 Data reviewed: vital signs, nurses notes, lab test result(s), EKG, radiologic studies, mckenna plain films. 10/06 20:10 Order name: Basic Metabolic Panel; Complete Time: 21:51 mckenna 10/06 20:10 Order name: CBC with Diff; Complete Time: 00:16 mckenna 10/06 20:10 Order name: LFT's; Complete Time: 21:51 mckenna 10/06 20:10 Order name: Magnesium; Complete Time: 21:51 [facility] 10/06 20:10 Order name: NT PRO-BNP; Complete Time: 21:51 [facility] 10/06 20:10 Order name: PT-INR; Complete Time: 21:51 mckenna 10/06 20:10 Order name: Troponin (emerg Dept Use Only); Complete Time: 21:51 [facility] 10/06 20:10 Order name: Urine Culture [facility] 10/06 22:06 Order name: CBC Smear Scan; Complete Time: 00:16 ED[facility] 10/06 22:32 Order name: CBC with Automated Diff ED[facility] 10/06 22:32 Order name: CBC with Automated Diff [facility] 10/06 22:32 Order name: Comprehensive Metabolic Panel [facility] 10/06 22:32 Order name: Comprehensive Metabolic Panel [facility] 10/06 22:32 Order name: Magnesium [facility] 10/06 20:10 Order name: XRAY Chest (1 view) [facility] 10/06 20:10 Order name: Pelvis XRAY [facility] 10/06 20:10 Order name: Femur Right XRAY [facility] 10/06 20:10 Order name: Knee Right 2 View XRAY [facility] 10/06 22:32 Order name: Magnesium EDMS 10/06 22:32 Order name: Phosphorus EDMS 10/06 22:32 Order name: Phosphorus EDMS 10/06 22:32 Order name: Protime (+INR) EDMS 10/06 22:32 Order name: Protime (+INR) ED[facility] 10/06 22:32 Order name: PTT, Activated Partial Thromb EDMS 10/06 22:32 Order name: PTT, Activated Partial Thromb ED[facility] 10/06 20:10 Order name: EKG; Complete Time: 20:11 [facility] 10/06 20:10 Order name: Cardiac monitoring; Complete Time: 22:28 [facility] 10/06 20:10 Order name: EKG - Nurse/Tech; Complete Time: 23:51 [facility] 10/06 20:10 Order name: IV Saline Lock; Complete Time: 20:57 [facility] 10/06 20:10 Order name: Labs collected and sent; Complete Time: 20:57 [facility] 10/06 20:10 Order name: O2 Per Protocol; Complete Time: 20:57 [facility] 10/06 20:10 Order name: O2 Sat Monitoring; Complete Time: 20:57 [facility] 10/06 20:10 Order name: Urine Dipstick-Ancillary (obtain specimen); Complete Time: 22:28 [facility] 10/06 22:31 Order name: CONS Physician Consult [facility] 10/06 22:32 Order name: NPO ED[facility] 10/06 22:39 Order name: Jose; Complete Time: 23:47 bb Administered Medications: 20:50 Drug: NS 0.9% 1000 ml Route: IV; Rate: 125 ml/hr; Site: right antecubital; ea 10/07 01:04 Follow up: IV Status: Infusion continued upon admission ea 10/06 20:50 Drug: morphine 2 mg Route: IVP; Site: right antecubital; ea 22:10 Follow up: Response: No adverse reaction; Pain is decreased ea 20:50 Drug: Zofran 4 mg Route: IVP; Site: right antecubital; ea 23:00 Follow up: Response: No adverse reaction; Marked relief of symptoms ea 22:10 Drug: morphine 2 mg Route: IVP; Site: right antecubital; ea 23:00 Follow up: Response: No adverse reaction; Pain is decreased ea 22:20 Drug: Rocephin - (cefTRIAXone) 1 grams Route: IVPB; Infused Over: 30 mins; Site: right ea antecubital; 22:25 Follow up: IV Status: Completed infusion; IV Intake: 10ml ea Disposition: 10/06/18 21:53 Hospitalization ordered by Naomi Toure for Inpatient Admission. Preliminary diagnosis are Fall due to bumping against object, Displaced intertrochanteric fracture of right femur, Chronic obstructive pulmonary disease, unspecified, Urinary tract infection, site not specified, Anemia, unspecified. - Bed requested for Telemetry/MedSurg (Inpatient). - Status is Inpatient Admission. jd3 - Condition is Stable. - Problem is new. - Symptoms have improved. UTI on Admission? Yes Signatures: Dispatcher [employer] [facility] Corrie Wallis RN RN kl Anderson, Corey, MD MD cha Ballard, Brenda, RN RN bb Antunez, Elena, RN RN ea Davies, Jonathon, RN RN jd3 Roque, Raymond, RN RN rr5 Yaz Jones5 Corrections: (The following items were deleted from the chart) 21:54 21:53 Hospitalization Ordered by Naomi Toure MD for Inpatient Admission. Preliminary mckenna diagnosis is Fall due to bumping against object; Displaced intertrochanteric fracture of right femur; Chronic obstructive pulmonary disease, unspecified. Bed requested for Telemetry/MedSurg (Inpatient). Status is Inpatient Admission. Condition is Stable. Problem is new. Symptoms have improved. UTI on Admission? No. mckenna 22:23 22:01 Hip Right 2 View+RAD.RAD.BRZ ordered. [facility] EDMS 23:53 21:54 10/06/2018 21:53 Hospitalization Ordered by Naomi Toure MD for Inpatient ar5 Admission. Preliminary diagnosis is Fall due to bumping against object; Displaced intertrochanteric fracture of right femur; Chronic obstructive pulmonary disease, unspecified; Urinary tract infection, site not specified. Bed requested for Telemetry/MedSurg (Inpatient). Status is Inpatient Admission. Condition is Stable. Problem is new. Symptoms have improved. UTI on Admission? Yes. [facility] 10/07 00:16 10/06 23:53 10/06/2018 21:53 Hospitalization Ordered by Naomi Toure MD for Inpatient mckenna Admission. Preliminary diagnosis is Fall due to bumping against object; Displaced intertrochanteric fracture of right femur; Chronic obstructive pulmonary disease, unspecified; Urinary tract infection, site not specified. Bed requested for [facility] ER HOLD. Status is Inpatient Admission. Condition is Stable. Problem is new. Symptoms have improved. UTI on Admission? Yes. ar5 10/07 03:25 00:16 10/06/2018 21:53 Hospitalization Ordered by Naomi Toure MD for Inpatient kl Admission. Preliminary diagnosis is Fall due to bumping against object; Displaced intertrochanteric fracture of right femur; Chronic obstructive pulmonary disease, unspecified; Urinary tract infection, site not specified; Anemia, unspecified. Bed requested for [facility] ER HOLD. Status is Inpatient Admission. Condition is Stable. Problem is new. Symptoms have improved. UTI on Admission? Yes. mckenna 04:43 03:25 10/06/2018 21:53 Hospitalization Ordered by Naomi Toure MD for Inpatient jd3 Admission. Preliminary diagnosis is Fall due to bumping against object; Displaced intertrochanteric fracture of right femur; Chronic obstructive pulmonary disease, unspecified; Urinary tract infection, site not specified; Anemia, unspecified. Bed requested for Telemetry/MedSurg (Inpatient). Status is Inpatient Admission. Condition is Stable. Problem is new. Symptoms have improved. UTI on Admission? Yes. kl
--- NOTE | 2018-10-06 21:54 | ER ---
Nurse's Notes [facility] Name: Nanette Quiros Age: 83 yrs Sex: Female : 1935 Arrival Date: 10/06/2018 Time: 20:03 Bed 25 Private MD: Diagnosis: Fall due to bumping against object;Displaced intertrochanteric fracture of right femur;Chronic obstructive pulmonary disease, unspecified;Urinary tract infection, site not specified;Anemia, unspecified Presentation: 10/06 20:00 Presenting complaint: EMS states: [facility]5 tripped and twisted her knee fell down hit her hip on the floor while getting up from sitting position. 20:00 Transition of care: patient was not received from another setting of care. Onset of rr5 symptoms was October 06, 2018. Risk Assessment: Do you want to hurt yourself or someone else? Patient reports no desire to harm self or others. Initial Sepsis Screen: Does the patient meet any 2 criteria? No. Patient's initial sepsis screen is negative. Does the patient have a suspected source of infection? No. Patient's initial sepsis screen is negative. Note No LOC, nausea or vomiting,not taking any blood thinners. Care prior to arrival: Placed on backboard. 20:00 Method Of Arrival: EMS: [facility] rr5 20:00 Acuity: BAO 3 rr5 Triage Assessment: 20:05 Pain: Complains of pain in right hip, knee and heel Pain does not radiate. Pain rr5 currently is 0 out of 10 on a pain scale. at worst was 10 out of 10 on a pain scale. Quality of pain is described as aching, Pain began suddenly, Is intermittent. 20:05 General: Appears in no apparent distress. uncomfortable, Behavior is calm, cooperative, rr5 appropriate for age. Historical: - Allergies: 20:16 Codeine; rr5 20:16 PENICILLINS; rr5 20:16 Darvocet-N 100; rr5 - Home Meds: 20:16 Prevacid Oral [Active]; rr5 - PMHx: 20:16 "memory problems"; Asthma; COPD; Hyperlipidemia; Hypertension; Myocardial infarction; rr5 - PSHx: 20:16 3 stent; rr5 - Immunization history:: Adult Immunizations up to date, Pneumococcal vaccine is up to date, Flu vaccine is up to date. - Social history:: Smoking status: Patient uses tobacco products, smokes one pack cigarettes per day. Patient/guardian denies using alcohol, street drugs. - Family history:: not pertinent. - Ebola Screening: : Patient negative for fever greater than or equal to 101.5 degrees Fahrenheit, and additional compatible Ebola Virus Disease symptoms Patient denies exposure to infectious person Patient denies travel to an Ebola-affected area in the 21 days before illness onset. Screenin:27 Abuse screen: Denies threats or abuse. Nutritional screening: No deficits noted. ea Tuberculosis screening: No symptoms or risk factors identified. 23:15 Fall Risk IV access (20 points). ea Assessment: 20:45 General: Appears uncomfortable, Behavior is calm, cooperative, appropriate for age. ea Pain: Complains of pain in right upper thigh and right quadriceps Pain currently is 8 out of 10 on a pain scale. Quality of pain is described as aching. Neuro: Level of Consciousness is awake, alert, obeys commands, Oriented to person, place, time, situation. Cardiovascular: Patient's skin is warm and dry. Respiratory: Airway is patent Respiratory effort is even, unlabored, Respiratory pattern is regular, symmetrical. Derm: Skin is pink, warm \\T\\ dry. Musculoskeletal: Reports pain in right upper thigh. 21:48 Reassessment: Patient and/or family updated on plan of care and expected duration. Pain ea level reassessed. Patient is alert, oriented x 3, equal unlabored respirations, skin warm/dry/pink. Pt taken to Radiology. 22:45 Reassessment: Patient and/or family updated on plan of care and expected duration. Pain ea level reassessed. Patient is alert, oriented x 3, equal unlabored respirations, skin warm/dry/pink. 23:45 Reassessment: Patient and/or family updated on plan of care and expected duration. Pain ea level reassessed. Patient is alert, oriented x 3, equal unlabored respirations, skin warm/dry/pink. 10/07 00:35 Reassessment: Patient and/or family updated on plan of care and expected duration. Pain ea level reassessed. Pt resting with eyes closed. Respirations even and unlabored. Chest expansions even and symmetrical. No s/s of pain or discomfort noted at this time. Vital Signs: 10/06 20:05 BP 147 / 65; Pulse 90; Resp 19; Temp 98.3; Pulse Ox 97% ; Weight 50.35 kg; Height 5 ft. rr5 5 in. (165.10 cm); Pain 0/10; 21:55 BP 102 / 83; Pulse 111; Resp 18; Pulse Ox 95% ; ea 23:30 BP 105 / 58; Pulse 89; Resp 18; Pulse Ox 98% on R/A; ea 10/07 00:30 BP 115 / 50; Pulse 90; Resp 18; Pulse Ox 96% on R/A; ea 10/06 20:05 Body Mass Index 18.47 (50.35 kg, 165.10 cm) rr5 ED Course: 10/06 20:03 Patient arrived in ED. rr5 20:04 Mulugeta Coronel MD is Attending Physician. mckenna 20:05 Arm band placed on. rr5 20:13 Triage completed. rr5 20:15 Patient has correct armband on for positive identification. Bed in low position. Call ea light in reach. Side rails up X2. 20:18 Radiology exam delayed due to patient is not appropriately dressed for the exam at this jr1 time. 20:27 Sushila Humphreys, ADAN is Primary Nurse. ea 20:35 Inserted saline lock: 20 gauge in right antecubital area, using aseptic technique. ea Blood collected. 21:51 XRAY Chest (1 view) In Process Unspecified. EDMS 21:52 Pelvis XRAY In Process Unspecified. EDMS 21:52 Naomi Toure MD is Hospitalizing Provider. mckenna 21:54 Femur Right XRAY In Process Unspecified. EDMS 21:54 Knee Right 2 View XRAY In Process Unspecified. EDMS 23:47 Garcia cath inserted, using sterile technique, 16 Fr[address] ct, balloon inflated, urine mg2 specimen collected. returned 500 m l. Patient tolerated well. 23:57 No provider procedures requiring assistance completed. Patient admitted, IV remains in ea place. Administered Medications: 20:50 Drug: NS 0.9% 1000 ml Route: IV; Rate: 125 ml/hr; Site: right antecubital; ea 10/07 01:04 Follow up: IV Status: Infusion continued upon admission ea 10/06 20:50 Drug: morphine 2 mg Route: IVP; Site: right antecubital; ea 22:10 Follow up: Response: No adverse reaction; Pain is decreased ea 20:50 Drug: Zofran 4 mg Route: IVP; Site: right antecubital; ea 23:00 Follow up: Response: No adverse reaction; Marked relief of symptoms ea 22:10 Drug: morphine 2 mg Route: IVP; Site: right antecubital; ea 23:00 Follow up: Response: No adverse reaction; Pain is decreased ea 22:20 Drug: Rocephin - (cefTRIAXone) 1 grams Route: IVPB; Infused Over: 30 mins; Site: right ea antecubital; 22:25 Follow up: IV Status: Completed infusion; IV Intake: 10ml ea Intake: 22:25 IV: 10ml; Total: 10ml. Outcome: 21:53 Decision to Hospitalize by Provider. mckenna 22:30 Instructed on the need for admit. ea 23:57 Condition: stable ea 23:58 Admitted to ER Hold. Please see [facility] for further documentation. 10/07 04:43 Patient left the ED. jd3 Signatures: Dispatcher [employer] EDMS Mulugeta Coronel MD MD cha Ringgold, Jennifer jr1 Sushila Humphreys RN Kenan Gilliam ea, RN RN jd3 Tommy Joe, Ankit Hector RN RN RN rr5
[2018-10-06 22:05] LABS: Blood Morphology Comment NOTED (NOT SEEN); Macrocytosis 1+; Platelet Estimate ADEQ; Urine White Blood Cell Casts OK
[2018-10-06] MEDS ORDERED: CEFTRIAXONE/SWI 1gm 1 GM/10 ML SYR ONE (22:14)
[2018-10-06] MEDS ORDERED: ONDANSETRON 4 MG/2 ML VIAL IV PRN (22:28)
[2018-10-06] MEDS ORDERED: ACETAMINOPHEN 500 MG TAB PO PRN (22:28)
[2018-10-06] MEDS: NA CHLORIDE 0.9% 1,000 ML IV SCH (23:00)
[2018-10-07] MEDS: HYDROMORPHONE HCL 1 MG/ML INJ IV PRN ×2 (02:03→22:35)
[2018-10-07] MEDS ORDERED: HYDROMORPHONE HCL 1 MG/ML INJ ONE ×2 (02:09→19:00)
[2018-10-07] MEDS ORDERED: CEFAZOLIN/SWI 1gm 1 GM/10 ML SYR ONE ×2 (02:24→17:23)
[2018-10-07 03:45] VITALS: BMI 18.4
[2018-10-07 05:54] LABS: Absolute Lymphocytes (CBC) 1.7 K/uL (0.7-4.9); Absolute Monocytes 0.5 K/uL (0.1-1.3); Absolute Neutrophil 5.5 K/uL (1.8-8.0); Basophils % 0.9 % (0-1.3); Eosinophils % 1.9 % (0-4.4); Hematocrit 30.2 % (36.0-45.0); Lymphocytes % 21.3 % (15.3-44.8); MPV 10.7 fL (7.6-11.3); Monocytes % 5.9 % (3.3-12.3); RBC Red Blood Cell Count 2.84 M/uL (3.86-4.86)
[2018-10-07 06:05] LABS: Protime INR 1.12
[2018-10-07 06:07] LABS: Albumin 3.5 g/dL (3.4-5.0); Bilirubin Total 0.8 mg/dL (0.2-1.0); Magnesium 2.1 mg/dL (1.8-2.4); Phosphorus 4.2 mg/dL (2.5-4.9); Potassium 4.3 mmol/L (3.5-5.1); Protein, Total 6.4 g/dL (6.4-8.2)
--- NOTE | 2018-10-07 07:52 | RAD REPORT ---
EXAM DESCRIPTION: RAD - Femur Right - 10/06/2018 9:53 pm CLINICAL HISTORY: Right leg pain status post fall FINDINGS: Mildly displaced intertrochanteric fracture involves the right femur extending into the greater and l tashia trochanters. No dislocation seen. Osteoporosis
--- NOTE | 2018-10-07 07:52 | RAD REPORT ---
EXAM DESCRIPTION: RAD - Pelvis - 10/06/2018 9:52 pm CLINICAL HISTORY: Right hip pain status post fall FINDINGS: Mildly displaced intertrochanteric fracture involves the right femur extending into the gr eater and lesser trochanters. No dislocation seen. Osteoporosis
--- NOTE | 2018-10-07 07:53 | RAD REPORT ---
EXAM DESCRIPTION: RAD - Knee Right 2 View - 10/06/2018 9:53 pm CLINICAL HISTORY: Right knee pain status post fall FINDINGS: Limited two view series obtained No fracture or dislocation is seen.
--- NOTE | 2018-10-07 07:54 | RAD REPORT ---
EXAM DESCRIPTION: [place] Single View10/06/2018 9:50 pm CLINICAL HISTORY: Chest pain COMPARISON: January 2018 FINDINGS: The lungs are hyperaerated The lungs appear clear of acute infiltrate. The heart is mildly enlarged. Postsurgical changes involve the chest. IMPRESSION: No acute abnormalities displayed
[2018-10-07] MEDS: CEFAZOLIN/SWI 1gm 1 GM/10 ML SYR IV SCH ×2 (08:34→12:54)
--- NOTE | 2018-10-07 08:40 | P.CNS ---
Date of Consult: 10/07/18 Reason for Consult: right hip pain Chief Complaint: right hip pain History of Present Illness: 83 y/o female was walking quickly to catch a friend and caught her heel falling. she was brought to the ED here and found to have an intertrochanteric fracture in here right hip. Dr Sarah was contacted and has reviewed images. she localizes pain to her right hip, exacerbated with movement. she has been NPO since admission. she has a history of two stents in the past. she has not had cardiac clearance yet Allergies codeine [Codeine] Allergy (Verified 10/07/18 05:01) Itching Penicillins Allergy (Verified 10/07/18 05:01) Hives Home medications list reviewed: Yes Home Medications: NK [No Home Meds] 10/07/18 - Past Medical/Surgical History Diabetic: No Past Medical History: Reviewed- Non-Contributory -: COPD -: CAD, previous CABG -: Hypertension -: Cataracts -: Former tobacco use -: GERD -: Recent fall -: [place] -: Appendectomy -: Bilateral Cataracts -: Tubal Ligation -: Triple Bypass -: Neuroma removed julisa feet -: Skin cancer removed from face -: Hysterectomy Psychosocial/ Personal History: Patient lives with her daughter. She has 6 children. - Family History Sister Medical History: Diabetes - Social History Smoking Status: Current every day smoker Alcohol use: No CD- Drugs: No Caffeine use: Yes Review of Systems 10-point ROS is otherwise unremarkable Physical Examination Temp Pulse Resp BP Pulse Ox 98.5 F 80 18 138/70 97 10/06/18 23:38 10/07/18 00:00 10/07/18 00:00 10/07/18 00:00 10/06/18 23:38 General: In no apparent distress, Oriented x2, Cooperative HEENT: Atraumatic, Normocephalic Respiratory: Normal air movement Musculoskeletal: Other (pain localized to right hip) Laboratory Data (last 24 hrs) 10/06/18 20:50: PT 12.8 H, INR 1.09 10/06/18 20:50: WBC 8.1, Hgb 11.3 L, Hct 33.3 L, Plt Count 163 10/06/18 20:50: Sodium 144, Potassium 3.7, BUN 13, Creatinine 0.75, Glucose 98, Magnesium 2.3, Total Bilirubin 1.1 H, AST 19, ALT 19, Alkaline Phosphatase 56 Imagings Data: Xrays show a right hip intertrochanteric fracture - Problems (1) Closed intertrochanteric fracture of right hip Current Visit: Yes Status: Acute Qualifiers: Encounter type: initial encounter Fracture alignment: nondisplaced Qualified Code(s): S72.144A - Nondisplaced intertrochanteric fracture of right femur, initial encounter for closed fracture Conclusions/Impression: we will schedule her for a right hip closed reduction intramedullary fixation as soon as she is cleared for surgery, likely 5:00pm today
[2018-10-07] MEDS ORDERED: CEFAZOLIN/NS 1gm 1 GM/50 ML BAG IVPB SCH ×2 (09:00)
--- NOTE | 2018-10-07 11:35 | P.HP ---
Certification for Inpatient Patient admitted to: Inpatient With expected LOS: >2 Midnights Patient will require the following post-hospital care: None Practitioner: I am a practitioner with admitting privileges, knowledge of patient current condition, hospital course, and medical plan of care. Services: Services provided to patient in accordance with Admission requirements found in Title 42 Section 412.3 of the Code of Federal Regulations Patient History Date of Service: 10/06/18 Reason for admission: right hip pain History of Present Illness: Patient is an 83-year-old female who was at [facility] when she suffered a fall. She tripped and twisted her knee. When she tried to get up she fell and landed on her hip. She could not ambulate in her the leg was twisted. She was brought to the hospital and further workup revealed that she had a right intertrochanteric femur fracture. Patient will need surgical intervention. However, she does have a significant cardiac history and occluding and history of a coronary artery bypass grafting. She does admit that she had chest pain about a week ago for which she took nitroglycerin. She did not report this to any of her family doctor's nor did she talk to her plate maker zinc. She says the chest pain has been happening a little more frequently. However, nitroglycerin relieves it. Will consult Cardiology and get an echocardiogram and see if she needs further cardiac workup prior to surgery. Allergies codeine [Codeine] Allergy (Verified 10/07/18 05:01) Itching Penicillins Allergy (Verified 10/07/18 05:01) Hives Home Medications: NK [No Home Meds] 10/07/18 - Past Medical/Surgical History Has patient received pneumonia vaccine in the past: Yes Diabetic: No -: COPD -: CAD, previous CABG -: Hypertension -: Cataracts -: Former tobacco use -: GERD -: Recent fall -: GA -: Appendectomy -: Bilateral Cataracts -: Tubal Ligation -: Triple Bypass -: Neuroma removed julisa feet -: Skin cancer removed from face -: Hysterectomy Psychosocial/ Personal History: Patient lives with her daughter. She has 6 children. - Family History Sister Medical History: Diabetes - Social History Alcohol use: No CD- Drugs: No Caffeine use: Yes Review of Systems 10-point ROS is otherwise unremarkable Physical Examination - Vital Signs Temperature: 98.1 F Blood Pressure: 96/51 Pulse: 98 Respirations: 18 Pulse Ox (%): 91 - Physical Exam General: Alert, In no apparent distress, Oriented x3 HEENT: Atraumatic, PERRLA, Mucous membr. moist/pink, EOMI, Sclerae nonicteric Neck: Supple, 2+ carotid pulse no bruit, No LAD, Without JVD or thyroid abnormality Respiratory: Clear to auscultation bilaterally, Normal air movement Cardiovascular: Regular rate/rhythm, Normal S1 S2, No murmurs Gastrointestinal: Normal bowel sounds, Soft and benign, Non-distended, No tenderness Musculoskeletal: Tenderness, Other ( Right leg outward deviated) Integumentary: No rashes Neurological: Normal speech, Normal tone, Sensation intact, Cranial nerves 3-12 intact, Normal affect, Abnormal gait, Abnormal strength Lymphatics: No axilla or inguinal lymphadenopathy - Studies Laboratory Data (last 24 hrs) 10/06/18 20:50: PT 12.8 H, INR 1.09 10/06/18 20:50: WBC 8.1, Hgb 11.3 L, Hct 33.3 L, Plt Count 163 10/06/18 20:50: Sodium 144, Potassium 3.7, BUN 13, Creatinine 0.75, Glucose 98, Magnesium 2.3, Total Bilirubin 1.1 H, AST 19, ALT 19, Alkaline Phosphatase 56 Assessment & Plan - Problems (Diagnosis) (1) Hx of CABG Current Visit: Yes Status: Acute (2) Closed intertrochanteric fracture of right hip Current Visit: Yes Status: Acute Qualifiers: Encounter type: initial encounter Fracture alignment: nondisplaced Qualified Code(s): S72.144A - Nondisplaced intertrochanteric fracture of right femur, initial encounter for closed fracture (3) CAD (coronary artery disease) Onset Date: 02/27/18 Current Visit: No Status: Chronic Qualifiers: Coronary Disease-Associated Artery/Lesion type: [place] artery [place] vs. transplanted heart: [place] heart Associated angina: without angina Qualified Code(s): I25.10 - Atherosclerotic heart disease of [place] coronary artery without angina pectoris (4) HTN (hypertension) Onset Date: 02/27/18 Current Visit: No Status: Chronic Qualifiers: Hypertension type: essential hypertension Qualified Code(s): I10 - Essential (primary) hypertension (5) Hyperlipidemia Onset Date: 02/27/18 Current Visit: No Status: Chronic Qualifiers: Hyperlipidemia type: mixed hyperlipidemia Qualified Code(s): E78.2 - Mixed hyperlipidemia - Plan -management per Orthopedic surgery -cardiology consultation; monitor closely in the perioperative pd. -PT evaluation in the postoperative pd -DVT prophylaxis -IV hydration and IV antibiotics - n. p.o. -strict blood pressure and blood sugar control -monitor electrolytes and blood count closely -Dc Garcia catheter in 24-48hrs -echo pending -pain control Discharge Plan: Home Plan to discharge in: Greater than 2 days - Advance Directives Does patient have a Living Will: No Does patient have a Durable POA for Healthcare: No - Code Status/Comfort Care Code Status Assessed: Yes Code Status: Full Code Critical Care: No Time Spent Managing PTS Care (In Minutes): 45
[2018-10-07] MEDS: NA CHLORIDE 0.9% 1,000 ML IV SCH ×2 (12:54→22:06)
--- NOTE | 2018-10-07 13:44 | P.PN ---
Subjective Date of Service: 10/07/18 Chief Complaint: right hip pain Subjective: No C/O voiced Patient seen and examined at bedside. No family at bedside. Chart reviewed and case discussed with nursing staff. No complaints this morning. States the pain is well controlled. No acute events noted overnight Review of Systems 10-point ROS is otherwise unremarkable Physical Examination - Vital Signs Temperature: 98.1 F Blood Pressure: 96/51 Pulse: 98 Respirations: 18 Pulse Ox (%): 91 - Physical Exam General: Alert, In no apparent distress HEENT: Atraumatic, PERRLA, EOMI Neck: Supple, JVD not distended Respiratory: Clear to auscultation bilaterally, Normal air movement Cardiovascular: Regular rate/rhythm, Normal S1 S2 Gastrointestinal: Normal bowel sounds, No tenderness Musculoskeletal: No tenderness Integumentary: No rashes Neurological: Normal speech, Normal tone, Normal affect Lymphatics: No axilla or inguinal lymphadenopathy - Studies Laboratory Data (last 24 hrs) 10/06/18 20:50: PT 12.8 H, INR 1.09 10/06/18 20:50: WBC 8.1, Hgb 11.3 L, Hct 33.3 L, Plt Count 163 10/06/18 20:50: Sodium 144, Potassium 3.7, BUN 13, Creatinine 0.75, Glucose 98, Magnesium 2.3, Total Bilirubin 1.1 H, AST 19, ALT 19, Alkaline Phosphatase 56 Assessment And Plan - Plan Hx of CABG CAD (coronary artery disease), Atherosclerotic heart disease of [place] coronary artery without angina pectoris Echo ordered, pending Cardiology consultation for surgical clearance. Closed intertrochanteric fracture of right hip Nondisplaced intertrochanteric fracture of right femur, initial encounter for closed fracture Dr. Sarah consulted, recommendations appreciated. Patient will need physical therapy evaluation postop and social work to help with discharge planning. Keep NPO for potential surgical intervention Pain control HTN (hypertension) Stable, restart home medications. Will continue to monitor and adjust as needed Hyperlipidemia Stable. Continue home medication DVT prophylaxis: Start Lovenox 24hrs postop GI prophylaxis: None Diet: NPO Disposition: Pending surgical intervention
--- NOTE | 2018-10-07 14:34 | CON ---
History Of Present Illness: Mrs. Quiros is 83. She was running yesterday to try and catch up with a friend, tripped, fell, landed with much of her weight on her right hip. She immediately had pain, c annot move the leg at all and x-rays indicate an intertrochanteric fracture and the fracture extends into the trochanters. I am asked to see if she is an acceptable candidate for undergoing open reduct ion and internal fixation. The patient has a history of obstructive lung disease and coronary heart disease in the 1980s when she was still in her 40s. She had coronary bypass surgery in 2013. She kumar d stents, they were both placed in saphenous vein grafts. Her [place] arteries had become totally occ luded. Presently, she has angina occasionally. Her last episode of angina was about a week ago. It went away with nitroglycerin x1. This seems to be a fairly stable pattern. She continues to smoke and no home medicines are listed in our chart, but I believe that is a mistake. I think our records simply are not updated yet. She reports a drug intolerance to Darvocet, codeine, penicillins. Appar ently, she takes Prevacid as the only oral medication. I do not believe she has seen a electricity trading analyst since 2013 when she had her last 2 stents and she will use nitroglycerin as needed. Physical Examination: General: On physical exam, Mrs. Quiros appears to be her stated age of 83. Vital Signs: 5 feet 1 inch. 111 Pounds. Blood pressure 138/70, heart rate 80, respirations 18, tem perature 98.5. Lungs: No crackles or wheeze. All bronchial breath sounds. Heart: Regular rate and rhythm. No gallop or murmur. Again we do not have an EKG on her chart, so I need to look at an EKG before she goes through surgery . Impression: My impression is that the patient has stable coronary artery disease. She has not had a cardiac cath since 2013. It is probably severe progressive but stable enough to be considered a moderate risk for going through general anesthesia and hip nailing procedure. MOLLY/WAYNE Voice ID: [id number] Report ID: [id number]
[2018-10-07] MEDS ORDERED: Ringers Lactate 1,000 ML IV ONE (16:07)
[2018-10-07] MEDS: ENOXAPARIN 30 MG/0.3 ML SQ SCH (16:11)
[2018-10-07] MEDS ORDERED: PROPOFOL 200 MG/20 ML VIAL IV ONE (16:32)
[2018-10-07] MEDS ORDERED: FENTANYL CITR 100 MCG/2 ML ONE (16:33)
[2018-10-07] MEDS ORDERED: Phenylephrine HCl 10 MG/ML 1 ML VIAL ONE (16:33)
[2018-10-07] MEDS ORDERED: KETAMINE HCL 500 MG/5 ML VIAL ONE (16:33)
[2018-10-07] MEDS ORDERED: ESMOLOL HCL 0 ML IV ONE (16:41)
[2018-10-07] MEDS ORDERED: NITROGLYCERIN 1 GM PKT TD SCH ×2 (17:00)
[2018-10-07] MEDS ORDERED: RIVAROXABAN 10 MG TABLET PO ONE (17:38)
--- NOTE | 2018-10-07 17:43 | EKG ---
Test Date: 2018-10-07 Test Time: 15:36:29 Hone Operator: ISIDRO MEASUREMENT RESULTS: Intervals: Rate: 102 WA: 162 QRSD: 96 QT: 332 QTc: 432 [place]: P: 73 WA: 162 QRS: 73 T: 264 INTERPRETIVE STATEMENTS: Sinus tachycardia with premature supraventricular complexes ST & T wave abnormality, consider inferolateral ischemia Anterior infarct Abnormal ECG Compared to ECG 02/26/2018 10:59:49 Atrial premature complex(es) now present ST (T wave) deviation now present Possible ischemia now present Sinus rhythm no longer present Electronically Signed On 10-07-18 17:42:55 CDT by Jere Wilhelm
[2018-10-07] MEDS: MORPHINE 4 MG/ML SYR ONE ×4 (18:35→18:55)
--- NOTE | 2018-10-07 19:37 | RAD REPORT ---
EXAM DESCRIPTION: RAD - Hip Right 2 View - 10/07/2018 7:14 pm CLINICAL HISTORY: Fracture fixation COMPARISON: None. FINDINGS: Multiple portable and intraoperative images were obtained during fluoroscopic and images c yst in the placement of fracture fixation hardware. There were 4 fluoroscopic and spot images submitt ed. Fluoro time was 1 minutes 30 seconds no suspicious or unexpected finding.
[2018-10-07] MEDS: ENSURE ENLIVE 237 ML CAN PO SCH (21:00)
[2018-10-08] MEDS: CEFAZOLIN/SWI 1gm 1 GM/10 ML SYR IVP SCH ×3 (01:00→16:32)
[2018-10-08] MEDS: NA CHLORIDE 0.9% 1,000 ML IV SCH ×2 (01:40→12:26)
--- NOTE | 2018-10-08 04:57 | OP ---
Surgeon: Micky Sarah MD Preoperative Diagnosis: Right intertrochanteric hip fracture. Postoperative Diagnosis: Right intertrochanteric hip fracture. Procedure Performed: Right IT hip fracture. Product Advisor: Ann. Complications: None. Disposition: Recovery room, stable. Procedure In Detail: The patient was taken to the operative suite, placed in supine position, induce d anesthesia. Right hip was prepped and draped in sterile fashion, access through a lateral approach to the greater trochanter. Entry portal created at tip of the greater trochanter single stage reami ng and awl was placed followed by placement of a 9 x 125 jane with a 95 lag screw verified on biplane radiography. Distal 34 mm interlocking screw was placed. The patient had a layered closure performe d followed by application of a sterile dressing. MARISEL Voice ID: [id number] Report ID: [id number]
[2018-10-08 05:24] LABS: Absolute Lymphocytes (CBC) 1.5 K/uL (0.7-4.9); Absolute Monocytes 0.6 K/uL (0.1-1.3); Absolute Neutrophil 5.4 K/uL (1.8-8.0); Basophils % 0.9 % (0-1.3); Eosinophils % 2.1 % (0-4.4); Hematocrit 27.3 % (36.0-45.0); Lymphocytes % 19.1 % (15.3-44.8); MPV 10.6 fL (7.6-11.3); Monocytes % 7.4 % (3.3-12.3); RBC Red Blood Cell Count 2.54 M/uL (3.86-4.86)
[2018-10-08 05:38] LABS: Magnesium 2.1 mg/dL (1.8-2.4); Phosphorus 3.7 mg/dL (2.5-4.9)
--- NOTE | 2018-10-08 08:46 | ECHO ---
HEIGHT: 5 ft 5 in WEIGHT: 115 lb 8 oz DATE OF STUDY: 10/07/[address]: Naomi Toure MD 2-DIMENSIONAL: YES M.MODE: YES DOPPLER: YES COLOR FLOW: YES TDS: NO PORTABLE: NO DEFINITY: NO BUBBLE STUDY: NO DIAGNOSIS: CARDIAC CLEARANCE CARDIAC HISTORY: CATHERIZATION: YES SURGERY: YES PROSTHETIC VALVE: NO PACEMAKER: NO MEASUREMENTS (cm) DIASTOLIC (NORMALS) SYSTOLIC (NORMALS) IVSd 1.1 (0.6-1.2) LA Diam 4.2 (1.9-4.0) LVEF 50% LVIDd 4.3 (3.5-5.7) LVIDs 3.2 (2.0-3.5) %FS 25% LVPWd 1.0 (0.6-1.2) Ao Diam 2.6 (2.0-3.7) 2 DIMENSIONAL ASSESSMENT: RIGHT ATRIUM: NORMAL LEFT ATRIUM: DILATED RIGHT VENTRICLE: NORMAL LEFT VENTRICLE: NORMAL TRICUSPID VALVE: NORMAL MITRAL VALVE: MITRAL ANNULAR CALCIFICATION PULMONIC VALVE: NORMAL AORTIC VALVE: NORMAL PERICARDIAL EFFUSION: NONE AORTIC ROOT: NORMAL LEFT VENTRICULAR WALL MOTION: DOPPLER/COLOR FLOW: MILD MITRAL AND TRICUSPID REGURGITATION. MODERATE PULMONARY HYPERTENSION. ESTIMATED RIGHT VENTRICULAR SYSTOLIC PRESSURE 55mmHg. IMPAIRED LEFT VENTRICULAR RELAXATION. COMMENTS: NORMAL LEFT VENTRICULAR EJECTION FRACTION. DILATED LEFT ATRIUM. MITRAL ANNULAR CALCIFICATION. MILD MITRAL AND TRICUSPID REGURGITATION. MODERATE PULMONARY HYPERTENSION. IMPAIRED LEFT VENTRICULAR RELAXATION. TECHNOLOGIST: RIGO AYALA
[2018-10-08] MEDS: ENOXAPARIN 30 MG/0.3 ML SQ SCH (09:30)
[2018-10-08] MEDS: ENSURE ENLIVE 237 ML CAN PO SCH ×2 (09:32→20:33)
[2018-10-08] MEDS: HYDROMORPHONE HCL 1 MG/ML INJ IV PRN ×3 (10:20→22:05)
--- NOTE | 2018-10-08 11:36 | PN ---
Ms. Quiros Seemed to tolerate her hip surgery well. She has had a run of VT that seems to have resol bao without any recurrences. She is on DVT prophylaxis. I think either Lovenox or Xarelto would be fine and I will sign off her case unless there are cardiac issues that emerge. MOLLY/WAYNE Voice ID: [id number] Report ID: [id number]
[2018-10-08] MEDS: RIVAROXABAN 10 MG TABLET PO SCH (16:31)
--- NOTE | 2018-10-08 18:11 | P.PN ---
Subjective Date of Service: 10/08/18 Chief Complaint: right hip pain Review of Systems 10-point ROS is otherwise unremarkable Physical Examination - Vital Signs Temperature: 99.0 F Blood Pressure: 120/52 Pulse: 94 Respirations: 15 Pulse Ox (%): 98 - Physical Exam General: Oriented x1, Cooperative, Disheveled Musculoskeletal: Other (dressingC/D/I) - Studies Microbiology Data (last 24 hrs): 10/06/18 20:50 Clean Catch Urine [place] Count - Final BETWEEN 10,000 & 100,000 CFU/ML 10/06/18 20:50 Clean Catch Urine - Final MIXED JACQUE. Assessment And Plan - Current Problems (Diagnosis) (1) Closed intertrochanteric fracture of right hip Current Visit: Yes Status: Acute Plan: transfer to senior care unit or inpatient rehab when safe and stable, touch down weight baring only for 6 weeks. follow up in the office 2 weeks post op. Qualifiers: Encounter type: initial encounter Fracture alignment: nondisplaced Qualified Code(s): S72.144A - Nondisplaced intertrochanteric fracture of right femur, initial encounter for closed fracture Discharge Plan: Transfer (inpatrient rehab or senior care)
--- NOTE | 2018-10-08 23:07 | P.PN ---
Subjective Date of Service: 10/08/18 Chief Complaint: right hip pain Subjective: Improving Patient seen and examined at bedside. No family at bedside. Chart reviewed and case discussed with nursing staff. No complaints this morning. States the pain is well controlled. She is s/p surgical fixation POD #1 No acute events noted overnight Review of Systems 10-point ROS is otherwise unremarkable Physical Examination - Vital Signs Temperature: 99.1 F Blood Pressure: 93/47 Pulse: 104 Respirations: 25 Pulse Ox (%): 100 - Physical Exam General: Alert, In no apparent distress, Oriented x3 Musculoskeletal: No clubbing, No swelling, No erythema, No tenderness - Studies Microbiology Data (last 24 hrs): 10/06/18 20:50 Clean Catch Urine [place] Count - Final BETWEEN 10,000 & 100,000 CFU/ML 10/06/18 20:50 Clean Catch Urine - Final MIXED JACQUE. Assessment And Plan - Plan Hx of CABG CAD (coronary artery disease), Atherosclerotic heart disease of [place] coronary artery without angina pectoris Stable Closed intertrochanteric fracture of right hip Nondisplaced intertrochanteric fracture of right femur, initial encounter for closed fracture Dr. Sarah consulted, recommendations appreciated. s/[p surgical fixation. She is doing well. Patient will need physical therapy evaluation postop and social work to help with discharge planning. Pain control Physical therapy HTN (hypertension) Stable, restart home medications. Will continue to monitor and adjust as needed Hyperlipidemia Stable. Continue home medication DVT prophylaxis: lovenox GI prophylaxis: None Diet: Heart Healthy diet Disposition: Transfer to floor. Start discharge planning.
[2018-10-09] MEDS: CEFAZOLIN/SWI 1gm 1 GM/10 ML SYR IVP SCH ×3 (00:08→17:22)
[2018-10-09] MEDS: NA CHLORIDE 0.9% 1,000 ML IV SCH ×4 (01:16→23:52)
[2018-10-09] MEDS: HYDROMORPHONE HCL 1 MG/ML INJ IV PRN ×3 (04:33→15:11)
[2018-10-09] MEDS: ENSURE ENLIVE 237 ML CAN PO SCH ×2 (10:21→20:32)
--- NOTE | 2018-10-09 12:46 | P.PN ---
Subjective Date of Service: 10/09/18 Chief Complaint: right hip pain Subjective: Improving, Working w/ PT Patient seen and examined at bedside. No family at bedside. Chart reviewed and case discussed with nursing staff. No complaints this morning. States the pain is well controlled. She is s/p surgical fixation POD #2. Working with PT No acute events noted overnight Review of Systems 10-point ROS is otherwise unremarkable Physical Examination - Vital Signs Temperature: 98.3 F Blood Pressure: 103/51 Pulse: 80 Respirations: 18 Pulse Ox (%): 98 - Physical Exam General: Alert, Oriented x3, Mild distress, Moderate distress (when working with PT) Respiratory: Clear to auscultation bilaterally, Normal air movement Cardiovascular: Regular rate/rhythm, Normal S1 S2 Gastrointestinal: Normal bowel sounds, No tenderness Musculoskeletal: No clubbing, No swelling, No erythema, Tenderness Assessment And Plan - Plan Hx of CABG CAD (coronary artery disease), Atherosclerotic heart disease of [place] coronary artery without angina pectoris Stable Closed intertrochanteric fracture of right hip Nondisplaced intertrochanteric fracture of right femur, initial encounter for closed fracture Dr. Sarah consulted, recommendations appreciated. s/[p surgical fixation. She is doing well. social work on board to help with discharge planning. Pain control Physical therapy HTN (hypertension) Stable, restart home medications. Will continue to monitor and adjust as needed Hyperlipidemia Stable. Continue home medication DVT prophylaxis: lovenox GI prophylaxis: None Diet: Heart Healthy diet Disposition: Continue discharge planning.
[2018-10-09] MEDS: RIVAROXABAN 10 MG TABLET PO SCH (17:22)
[2018-10-10] MEDS: CEFAZOLIN/SWI 1gm 1 GM/10 ML SYR IVP SCH ×2 (00:52→08:28)
[2018-10-10] MEDS: NA CHLORIDE 0.9% 1,000 ML IV SCH ×2 (07:00→12:00)
[2018-10-10] MEDS: ENSURE ENLIVE 237 ML CAN PO SCH ×2 (08:28→21:00)
--- NOTE | 2018-10-10 08:28 | P.PN ---
Subjective Date of Service: 10/10/18 Chief Complaint: right hip pain Subjective: Ambulating, Improving, Doing well (labs are stable ready for rehab from ortho standpoint) Physical Examination - Vital Signs Temperature: 98.6 F Blood Pressure: 116/53 Pulse: 86 Respirations: 20 Pulse Ox (%): 99
[2018-10-10] MEDS: HYDROMORPHONE HCL 1 MG/ML INJ IV PRN ×2 (10:13→19:39)
[2018-10-10] MEDS: RIVAROXABAN 10 MG TABLET PO SCH (16:30)
--- NOTE | 2018-10-10 22:33 | P.PN ---
Subjective Date of Service: 10/10/18 Chief Complaint: right hip pain Subjective: Working w/ PT Patient seen and examined at bedside. No family at bedside. Chart reviewed and case discussed with nursing staff. No complaints this morning. States the pain is well controlled. She is s/p surgical fixation POD #2. Working with PT No acute events noted overnight Review of Systems 10-point ROS is otherwise unremarkable Physical Examination - Vital Signs Temperature: 99.1 F Blood Pressure: 132/64 Pulse: 98 Respirations: 16 Pulse Ox (%): 98 - Physical Exam General: Alert, In no apparent distress Respiratory: Clear to auscultation bilaterally, Normal air movement Cardiovascular: Regular rate/rhythm, Normal S1 S2 Gastrointestinal: Normal bowel sounds, No tenderness Assessment And Plan - Plan Hx of CABG CAD (coronary artery disease), Atherosclerotic heart disease of [place] coronary artery without angina pectoris Stable Closed intertrochanteric fracture of right hip Nondisplaced intertrochanteric fracture of right femur, initial encounter for closed fracture Dr. Sarah consulted, recommendations appreciated. s/[p surgical fixation. She is doing well. social work on board to help with discharge planning. Pain control Physical therapy HTN (hypertension) Stable, restart home medications. Will continue to monitor and adjust as needed Hyperlipidemia Stable. Continue home medication DVT prophylaxis: lovenox GI prophylaxis: None Diet: Heart Healthy diet Disposition: Continue discharge planning.
[2018-10-11] MEDS: NA CHLORIDE 0.9% 1,000 ML IV SCH ×2 (01:28→09:40)
[2018-10-11] MEDS: ENSURE ENLIVE 237 ML CAN PO SCH ×2 (08:23→20:51)
[2018-10-11] MEDS: HYDROMORPHONE HCL 1 MG/ML INJ IV PRN (10:04)
[2018-10-11] MEDS: DOCUSATE NA 100 MG CAP PO PRN (11:21)
[2018-10-11 12:03] LABS: Absolute Lymphocytes (CBC) 0.9 K/uL (0.7-4.9); Absolute Monocytes 0.5 K/uL (0.1-1.3); Absolute Neutrophil 4.6 K/uL (1.8-8.0); Basophils % 0.8 % (0-1.3); Eosinophils % 2.3 % (0-4.4); Hematocrit 25.2 % (36.0-45.0); Lymphocytes % 14.1 % (15.3-44.8); MPV 11.7 fL (7.6-11.3); Monocytes % 8.1 % (3.3-12.3); RBC Red Blood Cell Count 2.35 M/uL (3.86-4.86)
[2018-10-11 12:16] LABS: BUN Blood Urea Nitrogen 16 mg/dL (7-18); Bicarbonate 30 mmol/L (21-32); Glucose Level 129 mg/dL (74-106); Potassium 4.3 mmol/L (3.5-5.1); Sodium Level 142 mmol/L (136-145)
[2018-10-11 12:38] LABS: Blood Morphology Comment NOTED (NOT SEEN); Macrocytosis 1+; Ovalocytes 1+; Platelet Estimate DECR; Urine White Blood Cell Casts OK
--- NOTE | 2018-10-11 13:49 | P.PN ---
Subjective Date of Service: 10/11/18 Chief Complaint: right hip pain Subjective: No new changes, No C/O voiced Patient seen and examined at bedside. No family at bedside. Chart reviewed and case discussed with nursing staff. No complaints this morning. States the pain is well controlled. She is s/p surgical fixation POD #3. Working with PT Overnight, Patient with restlessness Dilaudid 1 mg given at 1939, tried getting out of bed pulled tele off and picking at her IV cannula,laughing without cause. Review of Systems 10-point ROS is otherwise unremarkable Physical Examination - Vital Signs Temperature: 97.9 F Blood Pressure: 123/59 Pulse: 82 Respirations: 18 Pulse Ox (%): 100 - Physical Exam General: Alert, In no apparent distress, Oriented x3 Respiratory: Clear to auscultation bilaterally, Normal air movement Cardiovascular: Regular rate/rhythm, Normal S1 S2 Musculoskeletal: Tenderness Assessment And Plan - Plan Hx of CABG CAD (coronary artery disease), Atherosclerotic heart disease of [place] coronary artery without angina pectoris Stable Closed intertrochanteric fracture of right hip Nondisplaced intertrochanteric fracture of right femur, initial encounter for closed fracture Dr. Sarah consulted, recommendations appreciated. s/p surgical fixation. She is doing well. social work on board to help with discharge planning. Pain control Continue with Physical therapy HTN (hypertension) Stable, restart home medications. Will continue to monitor and adjust as needed Hyperlipidemia Stable. Continue home medication DVT prophylaxis: lovenox GI prophylaxis: None Diet: Heart Healthy diet Disposition: Continue discharge planning.
[2018-10-11] MEDS: RIVAROXABAN 10 MG TABLET PO SCH (17:18)
[2018-10-11] MEDS: TRAMADOL HCL 50 MG TAB PO PRN (19:24)
[2018-10-11] MEDS ORDERED: DOCUSATE NA 100 MG CAP PO SCH (21:00)
[2018-10-12] MEDS: DOCUSATE NA 100 MG CAP PO PRN (09:22)
[2018-10-12] MEDS: ENSURE ENLIVE 237 ML CAN PO SCH ×2 (09:22→21:00)
--- NOTE | 2018-10-12 12:20 | P.PN ---
Subjective Date of Service: 10/12/18 Chief Complaint: right hip pain Subjective: Improving, Working w/ PT Patient seen and examined at bedside. No family at bedside. Chart reviewed and case discussed with nursing staff. No complaints this morning. States the pain is well controlled. She is s/p surgical fixation POD #4. Working with PT No acute events noted overnight Review of Systems 10-point ROS is otherwise unremarkable Physical Examination - Vital Signs Temperature: 99.0 F Blood Pressure: 101/53 Pulse: 89 Respirations: 20 Pulse Ox (%): 96 - Physical Exam General: Alert, In no apparent distress Neck: Supple, JVD not distended Respiratory: Clear to auscultation bilaterally, Normal air movement Cardiovascular: Regular rate/rhythm, Normal S1 S2 Musculoskeletal: Tenderness Assessment And Plan - Plan Hx of CABG CAD (coronary artery disease), Atherosclerotic heart disease of [place] coronary artery without angina pectoris Stable Closed intertrochanteric fracture of right hip Nondisplaced intertrochanteric fracture of right femur, initial encounter for closed fracture Dr. Sarah consulted, recommendations appreciated. s/p surgical fixation. She is doing well. social work on board to help with discharge planning. Pain control Continue with Physical therapy HTN (hypertension) Stable, restart home medications. Will continue to monitor and adjust as needed Hyperlipidemia Stable. Continue home medication DVT prophylaxis: lovenox GI prophylaxis: None Diet: Heart Healthy diet Disposition: Continue discharge planning. Patient denied for inpatient rehab. attempt [facility] facility placement. Social work involved
--- NOTE | 2018-10-12 16:33 | RAD REPORT ---
EXAM DESCRIPTION: [facility] Huang And Vin (2 Views)10/12/2018 4:25 pm CLINICAL HISTORY: Shortness of breath COMPARISON: October 06, 2018 FINDINGS: The lungs appear clear of acute infiltrate. The heart is mildly enlarged. Postsurgical changes involve the chest. Small pleural effusions are present
[2018-10-12] MEDS: RIVAROXABAN 10 MG TABLET PO SCH (17:27)
[2018-10-12] MEDS: TRAMADOL HCL 50 MG TAB PO PRN (22:20)
[2018-10-13] MEDS: ENSURE ENLIVE 237 ML CAN PO SCH ×2 (08:53→21:00)
[2018-10-13] MEDS: TRAMADOL HCL 50 MG TAB PO PRN (16:10)
[2018-10-13] MEDS: RIVAROXABAN 10 MG TABLET PO SCH (16:11)
--- NOTE | 2018-10-13 16:20 | PN ---
Date of Progress Note: 10/13/2018 Subjective: The patient is seen and examined. Chart reviewed and case discussed with RN. The patie nt has been refusing to work with Physical therapy. Medications: List reviewed. Code Status: Full. Physical Examination: Vital Signs: Temperature 97.7, heart rate 85, blood pressure 117/52, respirations 18, O2 98% on 2 L via nasal cannula. General: Awake, alert, oriented x3. Elderly female, in some mild distress. CV: S1, S2. Regular rate and rhythm. Peripheral pulses present. Respiratory: Moving air well bilaterally. No wheezing. Gastrointestinal: Abdomen is soft, nontender, nondistended. Positive bowel sounds. Extremities: No clubbing, cyanosis, or edema. Musculoskeletal: Right hip incision site clean, dry, intact. Bandage in place. Neurologic: Nonfocal. Laboratory Data: Pending. Chest x-ray from 10/12/2018 shows some small pleural effusions. Assessment: An 83-year-old female with: 1.Closed intertrochanteric fracture of the right hip, nondisplaced intertrochanteric fracture of the right femur. Initial encounter closed. The patient is status post open reduction and internal fixa tion postoperative day #5. Dr. Sarah on board. The patient is not working well with PT. Pain is controlled. 2.Essential hypertension, stable. Continue home medications as appropriate. 3.Mixed hyperlipidemia. We will continue home medication. 4.Deep venous thrombosis prophylaxis. The patient is on Xarelto. Plan: The patient was denied inpatient rehab pending SNF placement issues with the patient being the decision maker versus family member who needs to make decision. /WAYNE Voice ID: [id number] Report ID: [id number]
[2018-10-14 05:01] LABS: Absolute Lymphocytes (CBC) 1.4 K/uL (0.7-4.9); Absolute Monocytes 0.5 K/uL (0.1-1.3); Absolute Neutrophil 4.2 K/uL (1.8-8.0); Basophils % 1.3 % (0-1.3); Eosinophils % 3.3 % (0-4.4); Hematocrit 24.8 % (36.0-45.0); Lymphocytes % 21.9 % (15.3-44.8); MPV 11.3 fL (7.6-11.3); Monocytes % 8.2 % (3.3-12.3); RBC Red Blood Cell Count 2.35 M/uL (3.86-4.86)
[2018-10-14 05:18] LABS: ALT/SGPT 16 U/L (12-78); AST/SGOT 18 U/L (15-37); Albumin 2.7 g/dL (3.4-5.0); Alkaline Phosphatase 57 U/L (45-117); BUN Blood Urea Nitrogen 14 mg/dL (7-18); Bicarbonate 33 mmol/L (21-32); Bilirubin Total 0.8 mg/dL (0.2-1.0); Glucose Level 101 mg/dL (74-106); Potassium 3.9 mmol/L (3.5-5.1); Protein, Total 5.8 g/dL (6.4-8.2); Sodium Level 141 mmol/L (136-145)
[2018-10-14] MEDS: ENSURE ENLIVE 237 ML CAN PO SCH ×2 (08:50→21:01)
[2018-10-14] MEDS ORDERED: POTASSIUM 25 MEQ EFFERV TAB PO ONE (09:00)
[2018-10-14] MEDS: TRAMADOL HCL 50 MG TAB PO PRN (09:20)
[2018-10-14] MEDS: RIVAROXABAN 10 MG TABLET PO SCH (17:00)
[2018-10-14 21:05] VITALS: O2SAT 99
[2018-10-15 04:16] LABS: Absolute Lymphocytes (CBC) 1.6 K/uL (0.7-4.9); Absolute Monocytes 0.5 K/uL (0.1-1.3); Absolute Neutrophil 3.4 K/uL (1.8-8.0); Basophils % 1.5 % (0-1.3); Eosinophils % 4.9 % (0-4.4); Hematocrit 24.1 % (36.0-45.0); Lymphocytes % 27.1 % (15.3-44.8); MPV 11.2 fL (7.6-11.3); Monocytes % 8.1 % (3.3-12.3); RBC Red Blood Cell Count 2.27 M/uL (3.86-4.86)
[2018-10-15 04:37] LABS: ALT/SGPT 13 U/L (12-78); AST/SGOT 17 U/L (15-37); Albumin 2.5 g/dL (3.4-5.0); Alkaline Phosphatase 56 U/L (45-117); BUN Blood Urea Nitrogen 14 mg/dL (7-18); Bicarbonate 34 mmol/L (21-32); Bilirubin Total 0.8 mg/dL (0.2-1.0); Glucose Level 100 mg/dL (74-106); Potassium 4.1 mmol/L (3.5-5.1); Protein, Total 5.6 g/dL (6.4-8.2); Sodium Level 141 mmol/L (136-145)
[2018-10-15] MEDS: ENSURE ENLIVE 237 ML CAN PO SCH (08:24)
[2018-10-15] MEDS: TRAMADOL HCL 50 MG TAB PO PRN (11:32)
[2018-10-15 11:56] VITALS: BP 123/64; TEMP 97.4
--- NOTE | 2018-10-15 15:59 | DS ---
Date of Discharge: 10/14/2018 Consultants: Dr. Sarah with Orthopedics, Dr. Wilhelm with Cardiology. Procedures: On 10/07/2018, right intertrochanteric hip fracture. ORIF by Dr. Beltran. Admitting Diagnoses: 1.Closed intertrochanteric fracture of the right hip, initial encounter. 2.History of coronary artery disease, status post coronary artery bypass graft [place] artery and [place] heart without angina. 3.Essential hypertension. 4.Hyperlipidemia. 5.Chronic obstructive pulmonary disease. Discharge Diagnoses: 1.Right intertrochanteric fracture of the hip, closed, nondisplaced, initial encounter, status post open reduction and internal fixation. 2.Essential hypertension, stable. 3.Hyperlipidemia. 4.Coronary artery disease [place] artery and [place] heart without angina, status post coronary artery bypass graft. 5.Gastroesophageal reflux disease without esophagitis. Hospital Course: The patient is an 83-year-old female with history of heart disease status post CABG , who comes in with right hip fracture status post mechanical fall. The patient was started on pain medications. Imaging studies confirmed fracture. She was seen by Dr. Wilhelm with Cardiology for car diac clearance. Echocardiogram was done, which showed EF of 50%. The patient was cleared for surger y. Dr. Sarah with Orthopedic Surgery was consulted and the patient underwent ORIF. The patient d id well postoperatively. Her pain improved. She did have some difficulty working with PT. She was initially referred to inpatient rehab, however, was denied. The patient was then referred to residential facility; however, did take some time as the patient was unable to make decisions on her own due to her mental status, and family member who was a medical power of staff attorney made the decisions. The patient was then discharged once accepted to residential facility. The patient was then dis charged to residential facility in a stable condition. Activity: As per rehab. Medications: As per medication reconciliation list. Diet: Heart healthy. Followup: Follow up with primary care physician in 2-3 days. Follow up with orthopedic surgeon Dr. Sarah in 7-10 days for wound check. Follow up with integrated campaign manager, Dr. Wilhelm as recommended. Medications: As per medication reconciliation list. Physical Examination: General: Awake alert oriented x3. No acute distress, elderly female. CV: S1, S2. Respiratory: Moving air well bilaterally. Abdomen: Abdomen is soft, nontender, nondistended. Positive bowel sounds. Extremities: No clubbing, cyanosis or edema. Neurologic: Nonfocal. Musculoskeletal: Right hip incision site clean, dry, intact. Total time spent in discharging the patient was 41 minutes. SEUN Voice ID: [id number] Report ID: [id number]
--- NOTE | 2018-10-15 19:59 | PN ---
History: The patient seen and examined. Chart reviewed and case discussed with RN. The patient was supposed to be discharged yesterday however had not being accepted yet to the [facility] . The patient denies any significant pain. Medications: List reviewed. Physical Examination: Vital Signs: Temperature 97.4, heart rate 71, blood pressure 122/64, respirations 18, O2 of 98% on 2 L via nasal cannula. General: Awake, alert, oriented x3. No acute distress, elderly female. CV: S1, S2. No murmurs. Respiratory: Moving air well bilaterally. Abdomen: Soft, nontender, nondistended. Positive bowel sounds. Extremities: No clubbing, cyanosis, or edema. Neurologic: Nonfocal. Musculoskeletal: Right hip incision site clean, dry, and intact. Laboratory Data: Sodium 141, potassium 4.1, chloride 104, CO2 of 34, BUN 14, creatinine 0.5, glucose 100, calcium 8.4. WBC 5.8, H and H 8 and 24.1, platelets 169. Assessment: An 83-year-old female with; 1.Closed intertrochanteric fracture of the right hip, nondisplaced, initial encounter status post op en reduction internal fixation. 2.Essential hypertension, stable. 3.Hyperlipidemia. 4.Moderate protein calorie malnutrition, albumin 2.5. Plan: [facility]. /WAYNE Voice ID: [id number] Report ID: [id number]
--- NOTE | 2018-10-16 03:34 | DS ---
Date of Discharge: 10/15/2018 Power Ballast Machine Operator: Dr. Sarah with Orthopedics. DICTATION ENDS HERE SA/WAYNE Voice ID: [id number] Report ID: [id number]
== END 2018-10-15 12:03 | DRG 481 ==
LOC: ER 19:48 → ERHOLD 22:57 → 2ND 10-07 04:15 → 3RD-ICU 10-07 18:51 → 4TH 10-08 21:40
PROVIDERS: ADMIT Hospitalist; ATTEND Family Medicine
PROC: 0QS606Z Reposition Right Upper Femur with Intramedullary Internal Fixation Device, Open Approach (ICD-10-PCS; principal; 2018-10-07 17:00)
DX: S72.144A Nondisplaced intertrochanteric fracture of right femur, initial encounter for closed fracture (principal); E44.0 Moderate protein-calorie malnutrition; Z68.1 Body mass index [BMI] 19.9 or less, adult; W18.00XA Striking against unspecified object with subsequent fall, initial encounter; Y93.01 Activity, walking, marching and hiking; Y92.019 Unspecified place in single-family (private) house as the place of occurrence of the external cause; Z88.5 Allergy status to narcotic agent; Z88.0 Allergy status to penicillin; F17.210 Nicotine dependence, cigarettes, uncomplicated; J44.9 Chronic obstructive pulmonary disease, unspecified; I25.10 Atherosclerotic heart disease of native coronary artery without angina pectoris; Z95.1 Presence of aortocoronary bypass graft; K21.9 Gastro-esophageal reflux disease without esophagitis; I10 Essential (primary) hypertension; E78.2 Mixed hyperlipidemia; Z95.5 Presence of coronary angioplasty implant and graft
CPT/HCPCS: 36415; 51702; 71045; 71046; 72170; 80048; 80053; 80076; 83735; 83880; 84100; 84484; 85025; 85610; 85730; 87086; 87088; 93005; 93306; 96361; 96374; 96375; 97110; 97112; 97116; 97163; 97530; 99285; J0690; J0696; J1170; J1650; J2270; J2370; J2405; J2704; J3010; J7030